=== PATIENT | female | born 1955 | race Caucasian/White ===

== ENCOUNTER 2017-08-25 07:47 | Emergency (ER) | payer BC ==
[2017-08-25 08:21] LABS: Urine Blood NEGATIVE (NEG); Urine Glucose NEGATIVE (NEG); Urine Protein TRACE (NEG)
[2017-08-25] MEDS ORDERED: NA CHLORIDE 0.9% 500 ML ONE (08:28)
[2017-08-25] MEDS ORDERED: DIPHENOX/ATROP SULF 1 TAB PO ONE (08:28)
[2017-08-25 08:36] LABS: Absolute Lymphocytes (CBC) 2.2 K/uL (0.7-4.9); Absolute Monocytes 0.4 K/uL (0.1-1.3); Absolute Neutrophil 7.5 K/uL (1.8-8.0); Basophils % 0.4 % (0-1.3); Eosinophils % 2.3 % (0-4.4); Hematocrit 43.1 % (36.0-45.0); Lymphocytes % 20.8 % (15.3-44.8); MCH 31.7 pg (27.0-35.0); MCV 93.4 fL (80-100); MPV 8.5 fL (7.6-11.3); Monocytes % 3.7 % (3.3-12.3); RBC Red Blood Cell Count 4.61 M/uL (3.86-4.86)
[2017-08-25 08:44] LABS: Bicarbonate 33 mEq/L (21-31); Glucose Level 180 mg/dL (65-120); Lipase 14 U/L (22-51); Potassium 3.1 mEq/L (3.6-5.0); Sodium Level 135 mEq/L (135-145)
[2017-08-25 08:49] LABS: Urine Bacteria <20 /HPF (<20); Urine RBC <5 /HPF (NONE SEEN)
[2017-08-25 08:50] LABS: Urine Culture Reflex Order NOT NEEDED
[2017-08-25 09:37] LABS: BUN Blood Urea Nitrogen < 5 mg/dL (6-20)
[2017-08-25 09:38] LABS: Bilirubin Direct 0.1 mg/dL (0-0.2); Bilirubin Total 0.4 mg/dL (0.3-1.2)
[2017-08-25 09:39] LABS: ALT/SGPT 11 IU/L (10-60); AST/SGOT 16 IU/L (10-42); Alkaline Phosphatase 143 IU/L (42-121)
[2017-08-25 09:40] LABS: Albumin 3.7 g/dL (3.2-5.5); Protein, Total 7.5 g/dL (6.0-8.3)
--- NOTE | 2017-08-25 09:56 | ER ---
Nurse's Notes [facility] Name: Mia Person Age: 61 yrs Sex: Female : 1955 Arrival Date: 08/25/2017 Time: 07:51 Bed 13 Private MD: Marcos Platt H Diagnosis: Diarrhea, unspecified Presentation: 08/25 07:55 Presenting complaint: Patient states: Patient states her DM medication has recently ae1 changed and she thinks it may be making her sick. Patient reports diarrhea, dizziness and fever. Transition of care: patient was not received from another setting of care. Onset of symptoms was August 23, 2017 at 08:00. 07:55 Method Of Arrival: Ambulatory ae1 07:55 Acuity: NICOLLE 3 ae1 08:38 Risk Assessment: Do you want to hurt yourself or someone else? Patient reports no rv desire to harm self or others. Initial Sepsis Screen: Does the patient meet any 2 criteria? No. Patient's initial sepsis screen is negative. Does the patient have a suspected source of infection? No. Patient's initial sepsis screen is negative. Care prior to arrival: None. Historical: - Allergies: 08:00 Clindamycin; ae1 08:00 Morphine; ae1 - Home Meds: 08:00 gabapentin 800 mg oral tab 1 tab 3 times per day [Active]; Amaryl 4 mg Oral tab 1 tab 4 ae1 mg in the AM and 2 mg nightly [Active]; Valium 10 mg oral tab [Active]; trazodone 100 mg Oral tab 1 tab nightly [Active]; - PMHx: 08:00 Cancer, Breast; RLS; Diabetes - NIDDM; right masectomy; ae1 - Immunization history:: Flu vaccine is not up to date. It has been more than one year since last vaccine. - Social history:: Smoking status: Patient uses tobacco products, smokes one pack cigarettes per day. - Ebola Screening: : Patient negative for fever greater than or equal to 101.5 degrees Fahrenheit, and additional compatible Ebola Virus Disease symptoms Patient denies exposure to infectious person Patient denies travel to an Ebola-affected area in the 21 days before illness onset. Screenin:38 Abuse screen: Denies threats or abuse. Denies injuries from another. Nutritional rv screening: No deficits noted. Tuberculosis screening: No symptoms or risk factors identified. Fall Risk None identified. Assessment: 08:36 General: Appears uncomfortable, obese, Behavior is calm, cooperative, Reports fever for rv diarrhea. Pain: Denies pain. Neuro: Level of Consciousness is awake, alert, obeys commands. Cardiovascular: Heart tones S1 S2 present. GI: Bowel sounds hyperactive in right upper quadrant, left upper quadrant, right lower quadrant and left lower quadrant Abd is soft and non tender X 4 quads. : No signs and/or symptoms were reported regarding the genitourinary system. EENT: No signs and/or symptoms were reported regarding the EENT system. Derm: No signs and/or symptoms reported regarding the dermatologic system. Musculoskeletal: No signs and/or symptoms reported regarding the musculoskeletal system. Vital Signs: 07:57 BP 143 / 87; Pulse 96; Resp 18; Temp 98.1(O); Pulse Ox 98% on R/A; Weight 82.55 kg (R); ae1 08:40 BP 129 / 67; Pulse 81; Resp 18; Temp 98.1; Pulse Ox 94% ; rv 09:26 BP 126 / 72; Pulse 84; Resp 16; Pulse Ox 92% on R/A; rv ED Course: 07:51 Patient arrived in ED. mr 07:51 Marcos Platt DO is Private Physician. mr 07:54 Osmar Fink MD is Attending Physician. kdr 07:57 Triage completed. ae1 07:57 Arm band placed on right wrist. ae1 08:05 Rajat Mckay LVN is Primary Nurse. em 08:25 Urine Microscopic Only Sent. mh5 08:39 Patient has correct armband on for positive identification. Placed in gown. Bed in low rv position. Call light in reach. Side rails up X 1. Adult w/ patient. Pulse ox on. NIBP on. 08:39 Inserted saline lock: 20 gauge in right antecubital area, using aseptic technique. rv 09:55 Marcos Platt DO is Referral Physician. kdr 10:05 No provider procedures requiring assistance completed. IV discontinued, intact, ae1 bleeding controlled, No redness/swelling at site. Patient refused tape and coban wrap, patient applied pressure to insertion site. Administered Medications: 08:32 Drug: LoMOTIL 2 tabs Route: PO; rv 10:07 Follow up: Response: No adverse reaction rv 08:33 Drug: NS 0.9% 500 ml Route: IV; Rate: bolus; Site: right antecubital; rv 10:06 Follow up: IV Status: Completed infusion ae1 10:05 Not Given (Patient Refused): Potassium Chloride 40 mEq PO once ae1 Outcome: 09:56 Discharge ordered by . kdr 10:06 Discharged to home ambulatory, with family. ae1 10:06 Condition: stable 10:06 Discharge instructions given to patient, Instructed on discharge instructions, follow up and referral plans. medication usage, Demonstrated understanding of instructions, Prescriptions given X 4. 10:08 Patient left the ED. rv Signatures: Osmar Fink MD MD kdr Rivera, Maria mr Woody, Rajat, ROAD MANAGER ROAD MANAGER em Alban Gibson RN RN ae1 Aretha Tamayo [facility] Jefe Roper, IONA RN rv Corrections: (The following items were deleted from the chart) 07:58 07:57 BP 143 / 87; Pulse 96bpm; Resp 18bpm; Pulse Ox 98% RA; 82.55 kg Reported; ae1 ae1
--- NOTE | 2017-08-25 09:56 | EDPHYS ---
Physician Documentation [facility] Name: Mia Person Age: 61 yrs Sex: Female : 1955 Arrival Date: 08/25/2017 Time: 07:51 Bed 13 Private MD: Marcos Platt H ED Physician Osmar Fink HPI: 08/25 08:23 This 61 yrs old Female presents to ER via Ambulatory with complaints of kdr Abdominal Pain, Diarrhea. 08:23 The patient presents to the emergency department with diarrhea, that is intermittent, 2 kdr times today. Onset: The symptoms/episode began/occurred 2 day(s) ago. Possible causes: unknown. The symptoms are aggravated by nothing. The symptoms are alleviated by nothing. Associated signs and symptoms: Pertinent positives: nausea, Pertinent negatives: anorexia, belching, constipation, dysuria, fever, GI bleeding, hematuria, vaginal discharge, vomiting. Severity of symptoms: At their worst the symptoms were mild just prior to arrival, in the emergency department the symptoms have improved markedly. The patient has not experienced similar symptoms in the past. The patient has not recently seen a physician. Historical: - Allergies: 08:00 Clindamycin; ae1 08:00 Morphine; ae1 - Home Meds: 08:00 gabapentin 800 mg oral tab 1 tab 3 times per day [Active]; Amaryl 4 mg Oral tab 1 tab 4 ae1 mg in the AM and 2 mg nightly [Active]; Valium 10 mg oral tab [Active]; trazodone 100 mg Oral tab 1 tab nightly [Active]; - PMHx: 08:00 Cancer, Breast; RLS; Diabetes - NIDDM; right masectomy; ae1 - Immunization history:: Flu vaccine is not up to date. It has been more than one year since last vaccine. - Social history:: Smoking status: Patient uses tobacco products, smokes one pack cigarettes per day. - Ebola Screening: : Patient negative for fever greater than or equal to 101.5 degrees Fahrenheit, and additional compatible Ebola Virus Disease symptoms Patient denies exposure to infectious person Patient denies travel to an Ebola-affected area in the 21 days before illness onset. ROS: 08:23 Constitutional: Negative for fever, chills, and weight loss, Eyes: Negative for injury, kdr pain, redness, and discharge, ENT: Negative for injury, pain, and discharge, Neck: Negative for injury, pain, and swelling, Cardiovascular: Negative for chest pain, palpitations, and edema, Respiratory: Negative for shortness of breath, cough, wheezing, and pleuritic chest pain, Back: Negative for injury and pain, : Negative for injury, bleeding, discharge, and swelling, MS/Extremity: Negative for injury and deformity, Skin: Negative for injury, rash, and discoloration, Neuro: Negative for headache, weakness, numbness, tingling, and seizure activity. Psych: Negative for depression, anxiety, suicide ideation, homicidal ideation, and hallucinations, Allergy/Immunology: Negative for hives, rash, and allergies, Endocrine: Negative for neck swelling, polydipsia, polyuria, polyphagia, and marked weight changes, Hematologic/Lymphatic: Negative for swollen nodes, abnormal bleeding, and unusual bruising. 08:23 Abdomen/GI: Positive for nausea, diarrhea, Negative for constipation, abdominal distension, anorexia, dysphagia, hematemesis, black/tarry stool, rectal pain, rectal bleeding, bowel incontinence, flatulence. Exam: 08:23 Constitutional: This is a well developed, well nourished patient who is awake, alert, kdr and in no acute distress. Head/Face: Normocephalic, atraumatic. Eyes: Pupils equal round and reactive to light, extra-ocular motions intact. Lids and lashes normal. Conjunctiva and sclera are non-icteric and not injected. Cornea within normal limits. Periorbital areas with no swelling, redness, or edema. Neck: Trachea midline, no thyromegaly or masses palpated, and no cervical lymphadenopathy. Supple, full range of motion without nuchal rigidity, or vertebral point tenderness. No Meningismus. Chest/axilla: Normal chest wall appearance and motion. Nontender with no deformity. No lesions are appreciated. Cardiovascular: Regular rate and rhythm with a normal S1 and S2. No gallops, murmurs, or rubs. Normal PMI, no JVD. No pulse deficits. Respiratory: Lungs have equal breath sounds bilaterally, clear to auscultation and percussion. No rales, rhonchi or wheezes noted. No increased work of breathing, no retractions or nasal flaring. Abdomen/GI: Soft, non-tender, with normal bowel sounds. No distension or tympany. No guarding or rebound. No evidence of tenderness throughout. Back: No spinal tenderness. No costovertebral tenderness. Full range of motion. Skin: Warm, dry with normal turgor. Normal color with no rashes, no lesions, and no evidence of cellulitis. MS/ Extremity: Pulses equal, no cyanosis. Neurovascular intact. Full, normal range of motion. Neuro: Awake and alert, GCS 15, oriented to person, place, time, and situation. Cranial nerves II-XII grossly intact. Motor strength 5/5 in all extremities. Sensory grossly intact. Cerebellar exam normal. Normal gait. Psych: Awake, alert, with orientation to person, place and time. Behavior, mood, and affect are within normal limits. Vital Signs: 07:57 BP 143 / 87; Pulse 96; Resp 18; Temp 98.1(O); Pulse Ox 98% on R/A; Weight 82.55 kg (R); ae1 08:40 BP 129 / 67; Pulse 81; Resp 18; Temp 98.1; Pulse Ox 94% ; rv 09:26 BP 126 / 72; Pulse 84; Resp 16; Pulse Ox 92% on R/A; rv MDM: 08:23 Data reviewed: vital signs, nurses notes, lab test result(s). Counseling: I had a kdr detailed discussion with the patient and/or guardian regarding: the historical points, exam findings, and any diagnostic results supporting the discharge/admit diagnosis, lab results. 09:56 Patient medically screened. [facility] 08/25 08:18 Order name: Urine Dipstick--Ancillary (enter results); Complete Time: 09:27 08/25 08:20 Order name: Basic Metabolic Panel [facility] 08/25 08:20 Order name: CBC with Diff; Complete Time: : [facility] 08/25 08:20 Order name: Creatinine for Radiology; Complete Time: : [facility] 08/25 08:20 Order name: Hepatic Function [facility] 08/25 08:20 Order name: Lipase [facility] 08/25 08:20 Order name: Urine Microscopic Only; Complete Time: : [facility] 08/25 08:20 Order name: Basic Metabolic Panel; Complete Time: 09:54 [facility] 08/25 08:20 Order name: Liver (Hepatic) Function; Complete Time: 09:54 [facility] 08/25 08:20 Order name: Lipase; Complete Time: 09:54 [facility] 08/25 08:22 Order name: Glucose, Ancillary Testing; Complete Time: 09:27 [facility] 08/25 08:20 Order name: IV Saline Lock; Complete Time: 08:34 [facility] 08/25 08:20 Order name: Labs collected and sent; Complete Time: 08:34 [facility] 08/25 08:20 Order name: Urine Dipstick-Ancillary (obtain specimen); Complete Time: 08:22 [facility] Administered Medications: 08:32 Drug: LoMOTIL 2 tabs Route: PO; rv 10:07 Follow up: Response: No adverse reaction rv 08:33 Drug: NS 0.9% 500 ml Route: IV; Rate: bolus; Site: right antecubital; rv 10:06 Follow up: IV Status: Completed infusion ae1 10:05 Not Given (Patient Refused): Potassium Chloride 40 mEq PO once ae1 Disposition: 08/25/17 09:56 Discharged to Home. Impression: Diarrhea, unspecified. - Condition is Stable. - Discharge Instructions: Diarrhea, [id number]. - Prescriptions for Flagyl 500 mg Oral Tablet - take 1 tablet by ORAL route every 6 hours for 5 days; 20 tablet. Zofran 4 mg Oral Tablet - take 1 tablet by ORAL route every 12 hours As needed; 6 tablet. Cipro 500 mg Oral Tablet - take 1 tablet by ORAL route every 12 hours for 5 days; 10 tablet. Lomotil 2.5- 0.025 mg Oral Tablet - take 2 tablet by ORAL route once daily As needed; 20 tablet. - Medication Reconciliation Form, Thank You Letter, Antibiotic Education form. - Follow up: Marcos Platt DO; When: 2 - 3 days; Reason: If symptoms return, Further diagnostic work-up, Recheck today's complaints, Continuance of care, Re-evaluation by your physician. - Problem is new. - Symptoms have improved. Signatures: [facility] Osmar Fink MD MD kdr Alban Gibson RN RN ae1 Jefe Roper RN RN rv Corrections: (The following items were deleted from the chart) 10:08 09:56 08/25/2017 09:56 Discharged to Home. Impression: Diarrhea, unspecified. Condition rv is Stable. Forms are Medication Reconciliation Form, Thank You Letter, Antibiotic Education, Prescription Opioid Use. Follow up: Marcos Platt; When: 2 - 3 days; Reason: If symptoms return, Further diagnostic work-up, Recheck today's complaints, Continuance of care, Re-evaluation by your physician. Problem is new. Symptoms have improved. kdr
[2017-08-25 10:12] VITALS: TEMP 98.1
[2017-08-25 10:14] VITALS: BP 126/72; O2SAT 92
== END 2017-08-25 10:08 | disposition home or self-care (01) ==
LOC: ER 07:47
DX: R19.7 Diarrhea, unspecified (principal); E11.9 Type 2 diabetes mellitus without complications; F17.210 Nicotine dependence, cigarettes, uncomplicated; Z85.3 Personal history of malignant neoplasm of breast; Z88.3 Allergy status to other anti-infective agents; Z88.5 Allergy status to narcotic agent; Z90.11 Acquired absence of right breast and nipple
CPT/HCPCS: 36415; 80048; 80076; 81003; 81015; 82962; 83690; 85025; 96360; 96361; 99284

== ENCOUNTER 2018-02-06 00:24 | Emergency (ER) | payer BC ==
[2018-02-06] MEDS ORDERED: GABAPENTIN 300 MG CAP ONE ×2 (00:53→01:57)
[2018-02-06 01:14] LABS: Absolute Lymphocytes (CBC) 3.8 K/uL (0.7-4.9); Absolute Monocytes 0.7 K/uL (0.1-1.3); Absolute Neutrophil 6.8 K/uL (1.8-8.0); Basophils % 0.7 % (0-1.3); Eosinophils % 1.7 % (0-4.4); Hematocrit 40.7 % (36.0-45.0); Lymphocytes % 32.7 % (15.3-44.8); MCH 32.8 pg (27.0-35.0); MCV 95.5 fL (80-100); MPV 8.8 fL (7.6-11.3); Monocytes % 6.3 % (3.3-12.3); RBC Red Blood Cell Count 4.26 M/uL (3.86-4.86)
[2018-02-06 01:26] LABS: Magnesium 1.5 mg/dL (1.8-2.4); Potassium 2.7 mmol/L (3.5-5.1)
[2018-02-06] MEDS ORDERED: POTASSIUM 25 MEQ EFFERV TAB ONE (01:39)
[2018-02-06] MEDS ORDERED: MAGNESIUM OXIDE 400 MG TAB ONE (01:39)
--- NOTE | 2018-02-06 01:42 | EDPHYS ---
Physician Documentation [facility] Name: Mia Person Age: 62 yrs Sex: Female : 1955 Arrival Date: 02/06/2018 Time: 00:24 Bed 19 Private MD: Marcos Platt H ED Physician Po Dumas HPI: 02/06 00:42 This 62 yrs old Female presents to ER via Ambulatory with complaints of Leg snw Swelling. 00:42 restless legs, lower extremity edema. Onset: The symptoms/episode began/occurred snw gradually, 4 day(s) ago. Severity of symptoms: At their worst the symptoms were moderate. It is unknown whether or not the patient has had similar symptoms in the past. It is unknown whether or not the patient has recently seen a physician. pt states she is out of her Gabapentin. Historical: - Allergies: 00:39 Clindamycin; lp1 00:39 Morphine; lp1 - Home Meds: 00:39 Amaryl 4 mg Oral tab 1 tab 4 mg in the AM and 2 mg nightly [Active]; gabapentin 800 mg lp1 Oral tab 1 tab 3 times per day [Active]; Cymbalta oral oral [Active]; trazodone 100 mg Oral tab 1 tab nightly [Active]; Valium 10 mg Oral tab [Active]; - PMHx: 00:39 Cancer, Breast; Diabetes - NIDDM; RLS; Depression; lp1 - PSHx: 00:39 L Mastectomy; Cholecystectomy; lp1 - Immunization history:: Adult Immunizations up to date. - Social history:: Smoking status: Patient uses tobacco products, smokes one pack cigarettes per day. - Ebola Screening: : Patient negative for fever greater than or equal to 101.5 degrees Fahrenheit, and additional compatible Ebola Virus Disease symptoms Patient denies exposure to infectious person Patient denies travel to an Ebola-affected area in the 21 days before illness onset No symptoms or risks identified at this time. ROS: 00:42 Constitutional: Negative for fever, chills, and weight loss, Eyes: Negative for injury, snw pain, redness, and discharge, ENT: Negative for injury, pain, and discharge, Neck: Negative for injury, pain, and swelling, Cardiovascular: Negative for chest pain, palpitations, and edema, Respiratory: Negative for shortness of breath, cough, wheezing, and pleuritic chest pain, Abdomen/GI: Negative for abdominal pain, nausea, vomiting, diarrhea, and constipation, Back: Negative for injury and pain, : Negative for injury, bleeding, discharge, and swelling, Skin: Negative for injury, rash, and discoloration, Neuro: Negative for headache, weakness, numbness, tingling, and seizure. 00:42 MS/extremity: Positive for swelling, tenderness, restlessness to bilateral lower extremities. Exam: 00:42 Constitutional: This is a well developed, well nourished patient who is awake, alert, snw and in no acute distress. Head/Face: Normocephalic, atraumatic. Eyes: Pupils equal round and reactive to light, extra-ocular motions intact. Lids and lashes normal. Conjunctiva and sclera are non-icteric and not injected. Cornea within normal limits. Periorbital areas with no swelling, redness, or edema. ENT: Nares patent. No nasal discharge, no septal abnormalities noted. Tympanic membranes are normal and external auditory canals are clear. Oropharynx with no redness, swelling, or masses, exudates, or evidence of obstruction, uvula midline. Mucous membranes moist. Neck: Trachea midline, no thyromegaly or masses palpated, and no cervical lymphadenopathy. Supple, full range of motion without nuchal rigidity, or vertebral point tenderness. No Meningismus. Chest/axilla: Normal chest wall appearance and motion. Nontender with no deformity. No lesions are appreciated. Cardiovascular: Regular rate and rhythm with a normal S1 and S2. No gallops, murmurs, or rubs. Normal PMI, no JVD. No pulse deficits. Respiratory: Lungs have equal breath sounds bilaterally, clear to auscultation and percussion. No rales, rhonchi or wheezes noted. No increased work of breathing, no retractions or nasal flaring. Abdomen/GI: Soft, non-tender, with normal bowel sounds. No distension or tympany. No guarding or rebound. No evidence of tenderness throughout. Back: No spinal tenderness. No costovertebral tenderness. Full range of motion. Skin: Warm, dry with normal turgor. Normal color with no rashes, no lesions, and no evidence of cellulitis. Neuro: Awake and alert, GCS 15, oriented to person, place, time, and situation. Cranial nerves II-XII grossly intact. Motor strength 5/5 in all extremities. Sensory grossly intact. Cerebellar exam normal. Normal gait. Psych: Awake, alert, with orientation to person, place and time. Behavior, mood, and affect are within normal limits. 00:42 Musculoskeletal/extremity: Extremities: grossly normal except: noted in the bilateral lower extremities: tenderness, pt states legs below the knee are swollen, areas are freely mobile, no noted erythema, no tense areas, Circulation is intact in all extremities. Sensation intact. Vital Signs: 00:38 BP 119 / 81; Pulse 117 MON; Resp 17 S; Pulse Ox 100% on R/A; Pain 2/10; rv 00:40 BP 119 / 81; Pulse 122; Resp 18; Temp 98.4(O); Pulse Ox 99% on R/A; Weight 72.57 kg; lp1 Height 5 ft. 3 in. (160.02 cm); Pain 9/10; 00:40 Body Mass Index 28.34 (72.57 kg, 160.02 cm) lp1 MDM: 00:34 Patient medically screened. snw 01:45 Data reviewed: vital signs, nurses notes. Data interpreted: Pulse oximetry: on room air snw is 99 %. Interpretation: normal. Counseling: I had a detailed discussion with the patient and/or guardian regarding: the historical points, exam findings, and any diagnostic results supporting the discharge/admit diagnosis, lab results, radiology results, the need for outpatient follow up, to return to the emergency department if symptoms worsen or persist or if there are any questions or concerns that arise at home. Special discussion: I have referred the patient to see his PCP for further evaluation of high blood pressure. Based on the history and exam findings, there is no indication for further emergent testing or inpatient evaluation. I discussed with the patient/guardian the need to see the primary care provider for further evaluation of the symptoms. 02/06 00:41 Order name: DD; Complete Time: : snw 02/06 00:41 Order name: Chem 7; Complete Time: : snw 02/06 00:41 Order name: CBC with Diff; Complete Time: :22 snw 02/06 00:41 Order name: Magnesium; Complete Time: : snw 02/06 00:41 Order name: Chest Pa And Lat (2 Views) XRAY snw Administered Medications: 00:45 Drug: Gabapentin 300 mg Route: PO; rv 01:53 Follow up: Response: No adverse reaction rv 01:39 Drug: Potassium Effervescent Tablet 50 mEq Route: PO; rv 01:53 Follow up: Response: No adverse reaction rv 01:39 Drug: Magnesium 400 mg Route: PO; rv 01:52 Follow up: Response: No adverse reaction rv 01:52 Drug: Gabapentin 300 mg Route: PO; rv 01:52 Follow up: Response: Medication administered at discharge. rv Disposition: 06:45 Co-signature as Attending Physician, Po Dumas MD I agree with the assessment and moise plan of care. Disposition: 02/06/18 01:42 Discharged to Home. Impression: Hypokalemia, Hypomagnesemia. - Condition is Stable. - Discharge Instructions: Potassium Content of Foods, Hypomagnesemia, Restless Legs Syndrome, Hypokalemia. - Prescriptions for Potassium Chloride 20 meq Oral Packet - take 1 packet by ORAL route once daily 1 packet in 6 (six) ounces of water or juice; Take after meal; 2 packet. - Medication Reconciliation Form, Thank You Letter, Antibiotic Education, Prescription Opioid Use form. - Follow up: Marcos Platt DO; When: Tomorrow; Reason: Recheck today's complaints, Continuance of care, Re-evaluation by your physician. Follow up: Emergency Department; When: As needed; Reason: Worsening of condition. Signatures: Dispatcher [employer] Po Quintana MD MD cha Therrien, Shelly, QUILL STRIPPER-C QUILL STRIPPER-Csnw Rachel Guzman, RN RN lp1 Jefe Roper RN RN rv Corrections: (The following items were deleted from the chart) 01:55 01:42 02/06/2018 01:42 Discharged to Home. Impression: Hypokalemia; Hypomagnesemia. rv Condition is Stable. Forms are Medication Reconciliation Form, Thank You Letter, Antibiotic Education, Prescription Opioid Use. Follow up: Marcos Platt; When: Tomorrow; Reason: Recheck today's complaints, Continuance of care, Re-evaluation by your physician. Follow up: Emergency Department; When: As needed; Reason: Worsening of condition. snw
--- NOTE | 2018-02-06 01:42 | ER ---
Nurse's Notes [facility] Name: Mia Person Age: 62 yrs Sex: Female : 1955 Arrival Date: 02/06/2018 Time: 00:24 Bed 19 Private MD: Marcos Platt H Diagnosis: Hypokalemia;Hypomagnesemia Presentation: 02/06 00:33 Presenting complaint: Patient states: Bilateral lower leg swelling x 3 days; States lp1 this has never happened before; Denies any chest pain, shortness of breath. Transition of care: patient was not received from another setting of care. Onset of symptoms was February 03, 2018. Risk Assessment: Do you want to hurt yourself or someone else? Patient reports no desire to harm self or others. Initial Sepsis Screen: Does the patient meet any 2 criteria? No. Patient's initial sepsis screen is negative. Does the patient have a suspected source of infection? No. Patient's initial sepsis screen is negative. Care prior to arrival: None. 00:33 Method Of Arrival: Ambulatory lp1 00:33 Acuity: NICOLLE 3 lp1 00:37 Risk Assessment: Do you want to hurt yourself or someone else? Patient reports no rv desire to harm self or others. Initial Sepsis Screen: Does the patient meet any 2 criteria? No. Patient's initial sepsis screen is negative. Does the patient have a suspected source of infection? No. Patient's initial sepsis screen is negative. Care prior to arrival: None. Historical: - Allergies: 00:39 Clindamycin; lp1 00:39 Morphine; lp1 - Home Meds: 00:39 Amaryl 4 mg Oral tab 1 tab 4 mg in the AM and 2 mg nightly [Active]; gabapentin 800 mg lp1 Oral tab 1 tab 3 times per day [Active]; Cymbalta oral oral [Active]; trazodone 100 mg Oral tab 1 tab nightly [Active]; Valium 10 mg Oral tab [Active]; - PMHx: 00:39 Cancer, Breast; Diabetes - NIDDM; RLS; Depression; lp1 - PSHx: 00:39 L Mastectomy; Cholecystectomy; lp1 - Immunization history:: Adult Immunizations up to date. - Social history:: Smoking status: Patient uses tobacco products, smokes one pack cigarettes per day. - Ebola Screening: : Patient negative for fever greater than or equal to 101.5 degrees Fahrenheit, and additional compatible Ebola Virus Disease symptoms Patient denies exposure to infectious person Patient denies travel to an Ebola-affected area in the 21 days before illness onset No symptoms or risks identified at this time. Screenin:37 Abuse screen: Denies threats or abuse. Denies injuries from another. Nutritional rv screening: No deficits noted. Tuberculosis screening: No symptoms or risk factors identified. Fall Risk None identified. Assessment: 00:36 General: Appears in no apparent distress. comfortable, Behavior is cooperative, rv restless. Pain: Complains of pain in right leg and left leg. Neuro: Level of Consciousness is awake, alert, obeys commands, Oriented to person, place, time, situation. Cardiovascular: Capillary refill < 3 seconds. Respiratory: Airway is patent. GI: No signs and/or symptoms were reported involving the gastrointestinal system. : No signs and/or symptoms were reported regarding the genitourinary system. EENT: No signs and/or symptoms were reported regarding the EENT system. Derm: Skin is intact. Musculoskeletal: No signs and/or symptoms reported regarding the musculoskeletal system. Vital Signs: 00:38 BP 119 / 81; Pulse 117 MON; Resp 17 S; Pulse Ox 100% on R/A; Pain 2/10; rv 00:40 BP 119 / 81; Pulse 122; Resp 18; Temp 98.4(O); Pulse Ox 99% on R/A; Weight 72.57 kg; lp1 Height 5 ft. 3 in. (160.02 cm); Pain 9/10; 00:40 Body Mass Index 28.34 (72.57 kg, 160.02 cm) lp1 ED Course: 00:24 Patient arrived in ED. ds1 00:25 Marcos Platt DO is Private Physician. ds1 00:34 [facility]C [facility] snw 00:34 Po Dumas MD is Attending Physician. snw 00:37 Triage completed. lp1 00:37 Arm band placed on right wrist. rv 00:37 Patient has correct armband on for positive identification. Bed in low position. Call rv light in reach. Side rails up X 1. Pulse ox on. NIBP on. 00:55 Inserted saline lock: 22 gauge in right antecubital area, using aseptic technique. rv Blood collected. 00:55 Initial lab(s) drawn, by me, sent to lab. rv 00:59 X-ray completed. Portable x-ray completed in exam room. Patient tolerated procedure kw well. 01:00 Chest Pa And Lat (2 Views) XRAY In Process Unspecified. EDMS 01:26 Notified Nurse Practitioner and/or Physician Maintainer Plant of a critical lab result(s), fc potassium of 2.7. 01:41 Marcos lPatt DO is Referral Physician. snw 01:53 No provider procedures requiring assistance completed. IV discontinued, bleeding rv controlled, No redness/swelling at site. Pressure dressing applied. Administered Medications: 00:45 Drug: Gabapentin 300 mg Route: PO; rv 01:53 Follow up: Response: No adverse reaction rv 01:39 Drug: Potassium Effervescent Tablet 50 mEq Route: PO; rv 01:53 Follow up: Response: No adverse reaction rv 01:39 Drug: Magnesium 400 mg Route: PO; rv 01:52 Follow up: Response: No adverse reaction rv 01:52 Drug: Gabapentin 300 mg Route: PO; rv 01:52 Follow up: Response: Medication administered at discharge. rv Outcome: 01:42 Discharge ordered by MD. snw 01:54 Discharged to home ambulatory. rv 01:54 Condition: good 01:54 Discharge instructions given to patient, Instructed on discharge instructions, follow up and referral plans. medication usage, Demonstrated understanding of instructions, follow-up care, medications, Prescriptions given X 1. 01:55 Patient left the ED. rv Signatures: Dispatcher [employer] EDKS Vania Augustine, [employer] LAYOUT DESIGNER-Adrianw Alix Alford, RN RN fc Dafne Hager dsLorna Hernandez Laura RN RN lp1 Jefe Roper RN RN rv
[2018-02-06 02:02] VITALS: BP 119/81
[2018-02-06 02:03] VITALS: TEMP 98.4; O2SAT 99
--- NOTE | 2018-02-06 08:55 | RAD REPORT ---
EXAM DESCRIPTION: Sophia Alexis (2 Views)02/06/2018 1:02 am CLINICAL HISTORY: Breast cancer COMPARISON: 2016 FINDINGS: The lungs appear clear of acute infiltrate. The heart is normal size IMPRESSION: No acute abnormalities displayed
== END 2018-02-06 01:55 | disposition home or self-care (01) ==
LOC: ER 00:24
DX: E87.6 Hypokalemia (principal); E83.42 Hypomagnesemia; F17.210 Nicotine dependence, cigarettes, uncomplicated; E11.9 Type 2 diabetes mellitus without complications; F32.9 Major depressive disorder, single episode, unspecified; Z85.3 Personal history of malignant neoplasm of breast; Z88.3 Allergy status to other anti-infective agents; Z88.5 Allergy status to narcotic agent; Z90.12 Acquired absence of left breast and nipple
CPT/HCPCS: 36415; 71046; 80048; 83735; 85025; 85379; 99284

== ENCOUNTER 2019-07-17 12:18 | Emergency (ER) | payer BC, OTHER ==
--- NOTE | 2019-07-17 14:08 | ER ---
Nurse's Notes [facility] Name: Mia Person Age: 63 yrs Sex: Female : 1955 Arrival Date: 07/17/2019 Time: 12:21 Bed 7 Private MD: Diagnosis: Person with feared health complaint in whom no diagnosis is made Presentation: 07/16 12:30 Chief complaint: Patient states: I work at [employer] and they sent me home Sunday because I ph was sick, now they want me to be medically cleared before I can come back to work." States that symptoms on Sunday were constipation and stomach pain, denies fever, states, " After I was able to poop I felt completely better. Coronavirus screen: Patient denies a cough. Patient denies shortness of breath or difficulty breathing. Patient denies measured and/or subjective temperature greater than 100.4F prior to today's visit. Patient denies travel on a cruise ship or to a country the [facility] currently lists as an affected area. Patient denies contact with known and/or suspected case of COVID-19. Ebola Screen: No symptoms or risks identified at this time. Initial Sepsis Screen: Does the patient meet any 2 criteria? No. Patient's initial sepsis screen is negative. Does the patient have a suspected source of infection? No. Patient's initial sepsis screen is negative. Risk Assessment: Do you want to hurt yourself or someone else? Patient reports no desire to harm self or others. Onset of symptoms was July 17, 2019. 12:30 Method Of Arrival: Ambulatory ph 12:30 Acuity: NICOLLE 5 ph Historical: - Allergies: 12:33 Clindamycin; ph 12:33 Morphine; ph - PMHx: 12:33 Cancer, Breast; Depression; Diabetes - NIDDM; RLS; ph - PSHx: 12:33 L Mastectomy; Cholecystectomy; ph - Immunization history:: Adult Immunizations unknown. - Social history:: Smoking status: Patient reports the use of cigarette tobacco products, smokes two packs cigarettes per day. Screenin:49 Abuse screen: Denies threats or abuse. Denies injuries from another. Nutritional sv screening: No deficits noted. Tuberculosis screening: No symptoms or risk factors identified. Fall Risk None identified. Assessment: 12:50 General: Appears in no apparent distress. comfortable, well groomed, well developed, sv Behavior is cooperative, appropriate for age, anxious. Pain: Denies pain. Neuro: Level of Consciousness is awake, alert, obeys commands, Oriented to person, place, time, situation, Moves all extremities. Full function Gait is steady. Respiratory: Airway is patent Respiratory effort is even, unlabored, Respiratory pattern is regular, symmetrical. Derm: Skin is pink, warm \\T\\ dry. 14:18 Reassessment: Patient appears in no apparent distress at this time. No changes from sv previously documented assessment. Patient and/or family updated on plan of care and expected duration. Pain level reassessed. Patient is alert, oriented x 3, equal unlabored respirations, skin warm/dry/pink. Vital Signs: 12:30 Resp 18; Temp 97.8; Pulse Ox 98% on R/A; Weight 70.76 kg; Height 5 ft. 3 in. (160.02 ph cm); 12:30 BP 104 / 68; Pulse 125; Resp 18; Pulse Ox 98% on R/A; kj1 12:49 Pulse 115; sv 13:39 BP 94 / 55; Pulse 113; Resp 18; Pulse Ox 98% ; sv 14:05 BP 113 / 55; Pulse 103; Resp 18; Pulse Ox 96% ; sv 12:30 Body Mass Index 27.63 (70.76 kg, 160.02 cm) ph ED Course: 12:21 Patient arrived in ED. am2 12:29 Blaise Zamarripa PA is PHCP. [facility] 12:29 Daniel Hannah MD is Attending Physician. [facility] 12:33 Triage completed. ph 12:34 Arm band placed on Patient placed in an exam room, on a stretcher. ph 12:48 Megan Arenas, IONA is Primary Nurse. sv 12:49 Patient has correct armband on for positive identification. Bed in low position. Call sv light in reach. Pulse ox on. NIBP on. Door closed. Head of bed elevated. 14:18 No provider procedures requiring assistance completed. Patient did not have IV access sv during this emergency room visit. Administered Medications: No medications were administered Outcome: 14:07 Discharge ordered by . [facility] 14:18 Discharged to home ambulatory. sv 14:18 Condition: stable 14:18 Discharge instructions given to patient, Instructed on discharge instructions, follow up and referral plans. Demonstrated understanding of instructions, follow-up care. 14:19 Patient left the ED. sv Signatures: Megan Arenas RN RN Blaise Camacho PA PA jmm Hall, Patricia, RN RN Angelia Gr Kandis kj1
--- NOTE | 2019-07-17 14:08 | EDPHYS ---
Physician Documentation [facility] Name: Mia Person Age: 63 yrs Sex: Female : 1955 Arrival Date: 07/17/2019 Time: 12:21 Bed 7 Private MD: ED Physician Daniel Hannah HPI: 07/16 12:47 This 63 yrs old Female presents to ER via Ambulatory with complaints of jmm Medical Clearance. 12:47 Onset: The symptoms/episode began/occurred gradually. This is a 63 year old female with jmm a history of DM, breast cancer, that presents to the ED with no complaints. Patient states she had an episode of constipation this past Sunday. Symptoms were relieved with a bowel movement. Denies cough, shortness of breath, diarrhea, abdominal pain currently. . Historical: - Allergies: 12:33 Clindamycin; ph 12:33 Morphine; ph - PMHx: 12:33 Cancer, Breast; Depression; Diabetes - NIDDM; RLS; ph - PSHx: 12:33 L Mastectomy; Cholecystectomy; ph - Immunization history:: Adult Immunizations unknown. - Social history:: Smoking status: Patient reports the use of cigarette tobacco products, smokes two packs cigarettes per day. ROS: 12:47 Constitutional: Negative for fever, chills, and weight loss, Cardiovascular: Negative jmm for chest pain, palpitations, and edema, Respiratory: Negative for shortness of breath, cough, wheezing, and pleuritic chest pain, Abdomen/GI: Negative for abdominal pain, nausea, vomiting, diarrhea, and constipation, Neuro: Negative for headache, weakness, numbness, tingling, and seizure. 12:47 All other systems are negative. Exam: 12:47 Constitutional: This is a well developed, well nourished patient who is awake, alert, jmm and in no acute distress. Head/Face: atraumatic. Eyes: EOMI, no conjunctival erythema appreciated ENT: Moist Mucus Membranes Neck: Trachea midline, Supple Chest/axilla: Normal chest wall appearance and motion. Cardiovascular: Regular rate and rhythm. No edema appreciated Respiratory: Normal respirations, no respiratory distress appreciated 12:47 Back: Normal ROM Skin: General appearance color normal MS/ Extremity: Moves all extremities, no obvious deformities appreciated, no edema noted to the lower extremities Neuro: Awake and alert, normal gait Psych: Behavior is normal, Mood is normal, Patient is cooperative and pleasant 12:47 Abdomen/GI: Inspection: abdomen appears normal, Bowel sounds: normal, Palpation: abdomen is soft and non-tender, in all quadrants. Vital Signs: 12:30 Resp 18; Temp 97.8; Pulse Ox 98% on R/A; Weight 70.76 kg; Height 5 ft. 3 in. (160.02 ph cm); 12:30 BP 104 / 68; Pulse 125; Resp 18; Pulse Ox 98% on R/A; kj1 12:49 Pulse 115; sv 13:39 BP 94 / 55; Pulse 113; Resp 18; Pulse Ox 98% ; sv 14:05 BP 113 / 55; Pulse 103; Resp 18; Pulse Ox 96% ; sv 12:30 Body Mass Index 27.63 (70.76 kg, 160.02 cm) ph MDM: 12:36 Patient medically screened. [facility] 14:04 Data reviewed: vital signs, nurses notes. Counseling: I had a detailed discussion with david the patient and/or guardian regarding: the historical points, exam findings, and any diagnostic results supporting the discharge/admit diagnosis, the need for outpatient follow up, to return to the emergency department if symptoms worsen or persist or if there are any questions or concerns that arise at home. ED course: Patient is alert and non toxic in appearance in the ED. Abd is benign. Patient is afebrile and non toxic in appearance. No signs of an acute intrabdominal process. . 07/16 12:43 [facility] Order: Discharge when HR < 100; Complete Time: 14:15 [facility] Administered Medications: No medications were administered Disposition: 14:04 Chart complete. Chart complete. [facility] Disposition: 07/17/19 14:07 Discharged to Home. Impression: Person with feared health complaint in whom no diagnosis is made. - Condition is Stable. - Discharge Instructions: Constipation, Adult. - Work release form, Medication Reconciliation Form, Thank You Letter, Antibiotic Education, Prescription Opioid Use form. - Follow up: Private Physician; When: 2 - 3 days; Reason: Recheck today's complaints, Continuance of care, Re-evaluation by your physician. Signatures: Megan Arenas RN RN Blaise Camacho PA PA [facility] Moyer, Debby, RN RN ph Corrections: (The following items were deleted from the chart) 14:19 14:07 07/17/2019 14:07 Discharged to Home. Impression: Person with feared health sv complaint in whom no diagnosis is made. Condition is Stable. Forms are Medication Reconciliation Form, Thank You Letter, Antibiotic Education, Prescription Opioid Use. Follow up: Private Physician; When: 2 - 3 days; Reason: Recheck today's complaints, Continuance of care, Re-evaluation by your physician. baljit
[2019-07-17 14:26] VITALS: TEMP 97.8
[2019-07-17 14:29] VITALS: BP 113/55; O2SAT 96
== END 2019-07-17 14:19 | disposition home or self-care (01) ==
LOC: ER 12:18
DX: Z71.1 Person with feared health complaint in whom no diagnosis is made (principal); F17.210 Nicotine dependence, cigarettes, uncomplicated; Z85.3 Personal history of malignant neoplasm of breast; Z88.3 Allergy status to other anti-infective agents; Z88.5 Allergy status to narcotic agent; Z90.12 Acquired absence of left breast and nipple
CPT/HCPCS: 99283

== ENCOUNTER 2019-10-07 22:41 | Inpatient (IN) | payer OTHER ==
[2019-10-08] MEDS ORDERED: NA CHLORIDE 0.9% 1,000 ML ONE ×3 (00:01→02:50)
[2019-10-08 00:12] LABS: Protime INR 1.11
[2019-10-08 01:12] LABS: Urine Bacteria >50 /HPF (<20); Urine Culture Reflex Order REFLEXED; Urine RBC <5 /HPF (NONE SEEN)
[2019-10-08 01:30] LABS: ALT/SGPT 13 U/L (12-78); AST/SGOT 12 U/L (15-37); Alkaline Phosphatase 151 U/L (45-117); BUN Blood Urea Nitrogen 48 mg/dL (7-18); Bicarbonate 24 mmol/L (21-32); Bilirubin Direct 0.4 mg/dL (0-0.2); Magnesium 1.5 mg/dL (1.8-2.4); NT PRO-BNP 1119 pg/mL (<125); Protein, Total 6.4 g/dL (6.4-8.2); Sodium Level 121 mmol/L (136-145); Troponin (Emerg Dept Use Only) < 0.02 ng/mL (0.0-0.045)
[2019-10-08 01:31] LABS: Glucose Level 913 mg/dL (74-106); Potassium 2.6 mmol/L (3.5-5.1)
[2019-10-08] MEDS ORDERED: CEFTRIAXONE/SWI 1gm 1 GM/10 ML SYR ONE (01:34)
[2019-10-08 01:37] LABS: Absolute Lymphocytes (CBC) 0.9 K/uL (0.7-4.9); Basophils % 0.1 % (0-1.3); Hematocrit 31.7 % (36.0-45.0); Lymphocytes % 8.4 % (15.3-44.8); RBC Red Blood Cell Count 3.36 M/uL (3.86-4.86)
--- NOTE | 2019-10-08 01:49 | EDPHYS ---
Physician Documentation [facility] Name: Mia Person Age: 64 yrs Sex: Female : 1955 Arrival Date: 10/07/2019 Time: 22:45 Bed 15 Private MD: ED Physician Scott Woodson HPI: 10/06 23:25 This 64 yrs old Female presents to ER via Wheelchair with complaints of jr8 Weakness. 23:25 Onset: The symptoms/episode began/occurred gradually, 4 day(s) ago. Associated signs jr8 and symptoms: Pertinent positives: diarrhea. Severity of symptoms: At their worst the symptoms were moderate. Patient's baseline: Neuro: alert and fully oriented, Motor: no deficits, Ambulation: walks with assist only, Speech: normal. The patient has not experienced similar symptoms in the past. The patient has not recently seen a physician. Patient stated that she has had about 4 days of excessive fatigue, general weakness, and diarrhea. Denies sick contacts. Historical: - Allergies: 23:14 Clindamycin; ls4 23:14 Morphine; ls4 - PMHx: 23:14 Cancer, Breast; Depression; Diabetes - NIDDM; RLS; ls4 - PSHx: 23:14 L Mastectomy; Cholecystectomy; ls4 - Immunization history:: Adult Immunizations up to date, Flu vaccine is up to date. - Social history:: Smoking status: Patient reports the use of cigarette tobacco products, smokes one pack cigarettes per day. Patient/guardian denies using alcohol, street drugs. ROS: 23:25 Eyes: Negative for injury, pain, redness, and discharge, ENT: Negative for injury, jr8 pain, and discharge, Neck: Negative for injury, pain, and swelling, Cardiovascular: Negative for chest pain, palpitations, and edema, Respiratory: Negative for shortness of breath, cough, wheezing, and pleuritic chest pain, Back: Negative for injury and pain, MS/Extremity: Negative for injury and deformity, Skin: Negative for injury, rash, and discoloration. 23:25 Neuro: Negative for headache, weakness, numbness, tingling, and seizure. 23:25 Constitutional: Positive for fatigue, malaise, general weakness . 23:25 Abdomen/GI: Positive for diarrhea, Negative for abdominal pain, nausea and vomiting, abdominal distension, hematemesis, black/tarry stool, rectal pain, rectal bleeding, bowel incontinence, flatulence. Exam: 23:25 Eyes: Pupils equal round and reactive to light, extra-ocular motions intact. Lids and jr8 lashes normal. Conjunctiva and sclera are non-icteric and not injected. Cornea within normal limits. Periorbital areas with no swelling, redness, or edema. ENT: Nares patent. No nasal discharge, no septal abnormalities noted. Tympanic membranes are normal and external auditory canals are clear. Oropharynx with no redness, swelling, or masses, exudates, or evidence of obstruction, uvula midline. Mucous membranes moist. Neck: Trachea midline, no thyromegaly or masses palpated, and no cervical lymphadenopathy. Supple, full range of motion without nuchal rigidity, or vertebral point tenderness. No Meningismus. Cardiovascular: Tachycardic with a normal S1 and S2. No gallops, murmurs, or rubs. Normal PMI, no JVD. No pulse deficits. Respiratory: Lungs have equal breath sounds bilaterally, clear to auscultation and percussion. No rales, rhonchi or wheezes noted. No increased work of breathing, no retractions or nasal flaring. Abdomen/GI: Soft, non-tender, with normal bowel sounds. No distension or tympany. No guarding or rebound. No evidence of tenderness throughout. Back: No spinal tenderness. No costovertebral tenderness. Full range of motion. Skin: Warm, dry with normal turgor. Normal color with no rashes, no lesions, and no evidence of cellulitis. MS/ Extremity: Pulses equal, no cyanosis. Neurovascular intact. Full, normal range of motion. Neuro: Awake and alert, GCS 15, oriented to person, place, time, and situation. Cranial nerves II-XII grossly intact. Motor strength 5/5 in all extremities. Sensory grossly intact. Finger to nose normal. Heel to welch normal Vital Signs: 23:04 BP 112 / 64; Pulse 110; Resp 18; Temp 97.7(O); Pulse Ox 97% on R/A; Weight 68.04 kg; ar5 Height 5 ft. 3 in. (160.02 cm); 10/07 01:20 BP 114 / 69; Pulse 110; Resp 16; Pulse Ox 97% ; ls4 10/06 23:04 Body Mass Index 26.57 (68.04 kg, 160.02 cm) ar5 MDM: 10/06 22:59 Patient medically screened. 10/07 01:44 Data reviewed: vital signs, nurses notes, lab test result(s), EKG, radiologic studies, jr plain films, and as a result, I will admit patient. Data interpreted: Pulse oximetry: on room air is 97 %. Interpretation: normal. Counseling: I had a detailed discussion with the patient and/or guardian regarding: the historical points, exam findings, and any diagnostic results supporting the discharge/admit diagnosis, lab results, radiology results, the need for further work-up and treatment in the hospital. Physician consultation: Milton Kumar was called at 01:45, was contacted at 01:45, regarding admission, to the ICU, patient's condition, and will see patient in ED. 10/06 23:20 Order name: Basic Metabolic Panel; Complete Time: 01:[address] [facility] 10/06 23:20 Order name: CBC with Diff; Complete Time: 02:06 10/06 23:20 Order name: LFT's; Complete Time: :33 10/06 23:20 Order name: Magnesium; Complete Time: :33 10/06 23:20 Order name: NT PRO-BNP; Complete Time: 01:33 10/06 23:20 Order name: PT-INR; Complete Time: 00:29 10/06 23:20 Order name: Troponin (emerg Dept Use Only); Complete Time: 01:33 10/06 23:20 Order name: COVID-19; Complete Time: 16:[address] [facility] 10/06 23:20 Order name: Urine Microscopic Only; Complete Time: 01:14 10/07 01:14 Order name: Urine Culture; Complete Time: 16:48 ED[facility] 10/07 01:40 Order name: Manual Differential; Complete Time: 02:06 ED[facility] 10/07 01:49 Order name: Osmolality, Serum 10/07 01:50 Order name: Osmolality, Serum; Complete Time: 16:48 EDMS 10/07 03:53 Order name: Basic Metabolic Panel; Complete Time: 16:48 ED[facility] 10/06 23:20 Order name: XRAY Chest (1 view); Complete Time: 16:48 jr8 10/07 04:09 Order name: Glucose, Ancillary Testing; Complete Time: 16:48 EDMS 10/07 05:18 Order name: Glucose, Ancillary Testing; Complete Time: 16:48 EDMS 10/07 06:04 Order name: Glucose Level; Complete Time: 16:48 EDMS 10/07 06:15 Order name: Glucose, Ancillary Testing; Complete Time: 16:48 EDMS 10/07 07:06 Order name: Glucose, Ancillary Testing; Complete Time: 16:48 EDMS 10/07 08:59 Order name: Glucose, Ancillary Testing; Complete Time: 16:48 EDMS 10/07 09:47 Order name: Basic Metabolic Panel; Complete Time: 16:48 EDMS 10/07 11:30 Order name: Glucose, Ancillary Testing; Complete Time: 16:48 EDMS 10/07 12:47 Order name: Hemoglobin A1c; Complete Time: 16:48 EDMS 10/07 13:34 Order name: Glucose, Ancillary Testing; Complete Time: 16:48 EDMS 10/07 16:13 Order name: Glucose, Ancillary Testing; Complete Time: 16:48 EDMS 10/07 18:51 Order name: Glucose, Ancillary Testing; Complete Time: 16:48 EDMS 10/07 19:09 Order name: Basic Metabolic Panel; Complete Time: 16:48 EDMS 10/06 23:20 Order name: EKG; Complete Time: 23:21 10/06 23:20 Order name: Cardiac monitoring; Complete Time: 00:30 10/06 23:20 Order name: EKG - Nurse/Tech; Complete Time: 00:30 10/06 23:20 Order name: IV Saline Lock; Complete Time: 00:30 10/06 23:20 Order name: Labs collected and sent; Complete Time: 00:30 10/06 23:20 Order name: O2 Per Protocol; Complete Time: 00:30 10/06 23:20 Order name: O2 Sat Monitoring; Complete Time: 00:30 10/06 23:20 Order name: Urine Dipstick-Ancillary (obtain specimen); Complete Time: 00:29 10/06 23:20 Order name: Straight Cath; Complete Time: 00:29 Administered Medications: 00:01 Drug: NS 0.9% 1000 ml Route: IV; Rate: 1000 ml; Site: right upper arm; ls4 01:17 Follow up: IV Status: Completed infusion; IV Intake: 1000ml ls4 01:57 Drug: Rocephin 1 grams Route: IV; Rate: calculated rate; Site: right upper arm; ls4 01:59 Follow up: IV Status: Completed infusion; IV Intake: 10ml ls4 02:30 Drug: Potassium Chloride 40 mEq Route: PO; rv 02:58 Follow up: Response: No adverse reaction rv 02:58 Drug: Magnesium Sulfate 2 grams Route: IVPB; Infused Over: 2 hrs; Site: right upper arm;rv 02:58 Follow up: IV Status: Infusion continued upon admission rv 02:58 Drug: NS 0.9% with KCl 20 mEq/L 1000 ml Route: IV; Rate: 500 ml/hr; Site: right upper rv arm; 02:58 Follow up: IV Status: Infusion continued upon admission rv 03:00 Drug: Insulin Drip - (Insulin Regular Human 100 units, NS 0.9% 100 ml) {Co-Signature: sathish rios (Martina Ann RN).} Route: IV; Rate: calculated rate; Site: right upper arm; 03:00 Follow up: IV Status: Infusion continued upon admission rv Disposition: 10/08/19 01:48 Hospitalization ordered by Milton Kumar for Inpatient Admission. Preliminary diagnosis are Acute kidney failure, Hypokalemia, Hypomagnesemia, Urinary tract infection, site not specified, Hyperglycemic Hyperosmolar Syndrome. - Bed requested for Telemetry/MedSurg (Inpatient). - Status is Inpatient Admission. ea - Condition is Fair. - Problem is new. - Symptoms are unchanged. Addendum: 10/13/2019 16:40 Co-signature as Attending Physician, Scott Woodson MD I agree with the assessment and t w4 plan of care. Signatures: Dispatcher [employer] EDMS Ava Wilkins RN Philip Huang PA PA jr8 Teri Gregory, RN RN tl1 Martina Ann RN RN ea Wadley, Terrence, MD MD tw4 Jefe Roper RN RN rv Stewart, Lisa RN RN ls4 Martina Ann RN, ea Corrections: (The following items were deleted from the chart) 10/07 01:51 01:48 Hospitalization Ordered by Milton Kumar for Inpatient Admission. Preliminary jr8 diagnosis is Acute kidney failure; Hypokalemia; Hypomagnesemia; Diabetes mellitus due to underlying condition with hyperglycemia. Bed requested for Telemetry/MedSurg (Inpatient). Status is Inpatient Admission. Condition is Fair. Problem is new. Symptoms are unchanged. jr8 01:53 01:51 10/08/2019 01:48 Hospitalization Ordered by Milton Kumar for Inpatient jr8 Admission. Preliminary diagnosis is Acute kidney failure; Hypokalemia; Hypomagnesemia; Diabetes mellitus due to underlying condition with hyperglycemia; Urinary tract infection, site not specified. Bed requested for Telemetry/MedSurg (Inpatient). Status is Inpatient Admission. Condition is Fair. Problem is new. Symptoms are unchanged. jr8 02:44 01:53 10/08/2019 01:48 Hospitalization Ordered by Milton Kumar for Inpatient tl1 Admission. Preliminary diagnosis is Acute kidney failure; Hypokalemia; Hypomagnesemia; Urinary tract infection, site not specified; Hyperglycemic Hyperosmolar Syndrome. Bed requested for Telemetry/MedSurg (Inpatient). Status is Inpatient Admission. Condition is Fair. Problem is new. Symptoms are unchanged. jr8 02:44 02:44 10/08/2019 01:48 Hospitalization Ordered by Milton Kumar for Inpatient tl1 Admission. Preliminary diagnosis is Acute kidney failure; Hypokalemia; Hypomagnesemia; Urinary tract infection, site not specified; Hyperglycemic Hyperosmolar Syndrome. Bed requested for Intensive Care Unit. Status is Inpatient Admission. Condition is Fair. Problem is new. Symptoms are unchanged. tl1 16:55 02:44 10/08/2019 01:48 Hospitalization Ordered by Milton Kumar for Inpatient kl Admission. Preliminary diagnosis is Acute kidney failure; Hypokalemia; Hypomagnesemia; Urinary tract infection, site not specified; Hyperglycemic Hyperosmolar Syndrome. Bed requested for [facility] ER HOLD. Status is Inpatient Admission. Condition is Fair. Problem is new. Symptoms are unchanged. tl1 20:37 16:55 10/08/2019 01:48 Hospitalization Ordered by Milton Kumar for Inpatient ea Admission. Preliminary diagnosis is Acute kidney failure; Hypokalemia; Hypomagnesemia; Urinary tract infection, site not specified; Hyperglycemic Hyperosmolar Syndrome. Bed requested for Telemetry/MedSurg (Inpatient). Status is Inpatient Admission. Condition is Fair. Problem is new. Symptoms are unchanged. kl
--- NOTE | 2019-10-08 01:49 | ER ---
Nurse's Notes [facility] Name: Mia Person Age: 64 yrs Sex: Female : 1955 Arrival Date: 10/07/2019 Time: 22:45 Bed 15 Private MD: Diagnosis: Acute kidney failure;Hypokalemia;Hypomagnesemia;Urinary tract infection, site not specified;Hyperglycemic Hyperosmolar Syndrome Presentation: 10/06 23:11 Chief complaint: Patient states: I HAVE BEEN VERY WEEK FOR THE LAST FEW DAYS. I DONT ls4 HAVE PAIN BUT AM VERY WEAK. Coronavirus screen: Proceed with normal triage. Patient denies a cough. Patient denies shortness of breath or difficulty breathing. Patient denies measured and/or subjective temperature greater than 100.4F prior to today's visit. Patient denies travel on a cruise ship or to a country the [facility] currently lists as an affected area. Patient denies contact with known and/or suspected case of COVID-19. Ebola Screen: No symptoms or risks identified at this time. Initial Sepsis Screen: Does the patient meet any 2 criteria? No. Patient's initial sepsis screen is negative. Does the patient have a suspected source of infection? No. Patient's initial sepsis screen is negative. Risk Assessment: Do you want to hurt yourself or someone else? Patient reports no desire to harm self or others. Onset of symptoms was October 03, 2019 at 08:00. Care prior to arrival: None. Activity prior to arrival: None. 23:11 Method Of Arrival: Wheelchair ls4 23:11 Acuity: NICOLLE 2 ls4 Triage Assessment: 23:14 General: Appears uncomfortable, unkempt, Behavior is flat, quiet. Pain: Denies pain. ls4 Neuro: Level of Consciousness is awake, alert, obeys commands, Oriented to person, place, time, situation, Guest Service Agent are equal bilaterally weak bilaterally Weakness Gait is unsteady, Speech is normal, Facial symmetry appears normal, Pupils are PERRLA, Intact Reports weakness. Respiratory: Airway is patent Respiratory effort is shallow, weak, Respiratory pattern is regular, symmetrical. GI: Abdomen is non-distended, Reports diarrhea, intolerance of food, tolerance of fluids. : No signs and/or symptoms were reported regarding the genitourinary system. Derm: Skin with poor turgor Skin is dry, Skin is jaundiced, Skin temperature is warm. Musculoskeletal: Circulation, motion, and sensation intact. Capillary refill < 3 seconds, Range of motion: intact in all extremities. Historical: - Allergies: 23:14 Clindamycin; ls4 23:14 Morphine; ls4 - PMHx: 23:14 Cancer, Breast; Depression; Diabetes - NIDDM; RLS; ls4 - PSHx: 23:14 L Mastectomy; Cholecystectomy; ls4 - Immunization history:: Adult Immunizations up to date, Flu vaccine is up to date. - Social history:: Smoking status: Patient reports the use of cigarette tobacco products, smokes one pack cigarettes per day. Patient/guardian denies using alcohol, street drugs. Screenin:19 Abuse screen: Denies threats or abuse. Denies injuries from another. Nutritional ls4 screening: No deficits noted. Tuberculosis screening: No symptoms or risk factors identified. Fall Risk None identified. Assessment: 23:46 Reassessment: Patient and/or family updated on plan of care and expected duration. Pain ls4 level reassessed. Patient is alert, oriented x 3, equal unlabored respirations, skin warm/dry/pink. straight cath for urine. pt has wartlike mass to vaginal area. pt states it has been there for a very long time. 10/07 20:36 Reassessment: Patient and/or family updated on plan of care and expected duration. Pain ea level reassessed. Patient is alert, oriented x 3, equal unlabored respirations, skin warm/dry/pink. Pt admitted to fourth floor, pt taken per stretcher per tech. Pt tolerating well. Vital Signs: 10/06 23:04 BP 112 / 64; Pulse 110; Resp 18; Temp 97.7(O); Pulse Ox 97% on R/A; Weight 68.04 kg; ar5 Height 5 ft. 3 in. (160.02 cm); 10/07 01:20 BP 114 / 69; Pulse 110; Resp 16; Pulse Ox 97% ; ls4 10/06 23:04 Body Mass Index 26.57 (68.04 kg, 160.02 cm) ar5 ED Course: 10/06 22:45 Patient arrived in ED. ds1 22:47 Mirta Candelaria, IONA is Primary Nurse. ls4 22:59 Philip Lundberg PA is PHCP. jr8 22:59 Scott Woodson MD is Attending Physician. jr8 23:13 Triage completed. ls4 23:19 Arm band placed on right wrist. ls4 23:19 Patient has correct armband on for positive identification. Bed in low position. Call ls4 light in reach. Side rails up X2. secured entrance monitor on. Pulse ox on. NIBP on. Warm blanket given. Verbal reassurance given. 23:21 No provider procedures requiring assistance completed. ls4 23:52 XRAY Chest (1 view) In Process Unspecified. EDMS 10/07 01:40 Notified Nurse Practitioner and/or Physician Dry Yard Worker of a critical lab result(s), [place] [id number], to Philip SILVA. 01:45 Milton Kumar is Hospitalizing Provider. jr8 02:59 IV is patent, with fluids infusing freely, with good blood return, Patient admitted, IV rv remains in place. Inserted midline powerglide g18 x 10cm, right upper arm. Administered Medications: 00:01 Drug: NS 0.9% 1000 ml Route: IV; Rate: 1000 ml; Site: right upper arm; ls4 01:17 Follow up: IV Status: Completed infusion; IV Intake: 1000ml ls4 01:57 Drug: Rocephin 1 grams Route: IV; Rate: calculated rate; Site: right upper arm; ls4 01:59 Follow up: IV Status: Completed infusion; IV Intake: 10ml ls4 02:30 Drug: Potassium Chloride 40 mEq Route: PO; rv 02:58 Follow up: Response: No adverse reaction rv 02:58 Drug: Magnesium Sulfate 2 grams Route: IVPB; Infused Over: 2 hrs; Site: right upper arm;rv 02:58 Follow up: IV Status: Infusion continued upon admission rv 02:58 Drug: NS 0.9% with KCl 20 mEq/L 1000 ml Route: IV; Rate: 500 ml/hr; Site: right upper rv arm; 02:58 Follow up: IV Status: Infusion continued upon admission rv 03:00 Drug: Insulin Drip - (Insulin Regular Human 100 units, NS 0.9% 100 ml) {Co-Signature: rv gabriel (Martina Ann RN).} Route: IV; Rate: calculated rate; Site: right upper arm; 03:00 Follow up: IV Status: Infusion continued upon admission rv Intake: 01:17 IV: 1000ml; Total: 1000ml. ls4 01:59 IV: 10ml; Total: 1010ml. ls4 Outcome: 01:48 Decision to Hospitalize by Provider. jr8 02:59 Admitted to ER Hold. Please see [facility] for further documentation. rv 02:59 Condition: stable 02:59 Instructed on the need for admit. 20:37 Patient left the ED. ea Signatures: Dispatcher [employer] EDMS Rey Ryan, RN Dafne Shipley dsPhilip Barron PA PA jr8 Martina Ann RN RN ea Vicente, Ronaldo, RN RN rv Stewart, Lisa RN IONA ls4 Chula Miller [facility] Martina Ann RN, ea Corrections: (The following items were deleted from the chart) 00:30 07/07 23:01 NS 0.9% 1000 ml IV at 1000 ml in right upper arm ls4 ls4
[2019-10-08 02:06] LABS: Blood Morphology Comment NOTED (NOT SEEN); Burr Cells 3+; Platelet Estimate DECR
[2019-10-08] MEDS ORDERED: POTASSIUM CL SA 10 MEQ TAB PO ONE (02:17)
[2019-10-08] MEDS ORDERED: INSULIN -REGULAR HUMAN 50 UNIT/0.5 ML ML ONE ×2 (02:18→14:07)
[2019-10-08] MEDS ORDERED: NS KCL 20MEQ 1,000 ML IV ONE ×3 (02:19→14:07)
[2019-10-08] MEDS ORDERED: Magnesium Sulfate 2gm IVPB 2 G/50 ML BAG IV ONE (02:19)
[2019-10-08] MEDS ORDERED: NA CHLORIDE 0.9% 100 ML IV ONE (02:19)
--- NOTE | 2019-10-08 02:27 | P.HP ---
Certification for Inpatient Patient admitted to: Inpatient With expected LOS: >2 Midnights Practitioner: I am a practitioner with admitting privileges, knowledge of patient current condition, hospital course, and medical plan of care. Services: Services provided to patient in accordance with Admission requirements found in Title 42 Section 412.3 of the Code of Federal Regulations Patient History Date of Service: 10/08/19 Reason for admission: Generalize weakness, polyuria. History of Present Illness: 64-year-old woman with a history of diabetes mellitus type 2 presented emergency department with complaint of generalized weakness and increased frequency of urination which has been present over the past 4 days. Patient reports noncompliance in taking her diabetes medications due to inability to afford them. She denied any fever or shortness of breath or chest pain or cough. Her blood glucose only in ED is severely elevated to the 900s, along with multiple electrolyte abnormalities and thrombocytopenia. Her UA also suggested the presence of UTI. Patient given IV fluids and started on insulin drip for HHS. She is admitted for further management. Allergies clindamycin Allergy (Mild, Verified 02/09/14 15:10) Nausea/Vomiting morphine Allergy (Mild, Verified 03/30/12 17:26) Itching/Hives/Rash pentazocine lactate [From Talwin] Allergy (Mild, Verified 03/30/12 17:26) Itching/Hives/Rash tramadol Allergy (Mild, Verified 02/09/14 15:10) Itching Home Medications: Gabapentin [Neurontin] 300 mg PO TID 02/09/14 - Past Medical/Surgical History Diabetic: No -: restless leg syndrome -: hx of breast cancer -: Diabetes mellitus type 2 -: gallbladder -: L masectomy 1996 - Family History Mother -: Diabetes - Social History Smoking Status: Current every day smoker Alcohol use: No CD- Drugs: No Caffeine use: Yes Review of Systems Other: Except as documented, all other systems reviewed and negative. Physical Examination - Physical Exam General: Alert, In no apparent distress, Oriented x3 HEENT: Mucous membr. moist/pink, Sclerae nonicteric Neck: Supple, JVD not distended Respiratory: Clear to auscultation bilaterally, Normal air movement Cardiovascular: No edema, Regular rate/rhythm, Normal S1 S2 Gastrointestinal: Normal bowel sounds, Soft and benign, Non-distended, No tenderness Musculoskeletal: No swelling, No erythema Integumentary: No rashes Neurological: Normal speech, Normal strength at 5/5 x4 extr, Cranial nerves 3-12 intact - Studies Laboratory Data (last 24 hrs) 10/08/19 01:00: WBC 10.4, Hgb 10.7 L, Hct 31.7 L, Plt Count 20 L* 10/07/19 23:51: PT 13.1 H, INR 1.11 10/07/19 23:51: Sodium 121 L, Potassium 2.6 L*, BUN 48 H, Creatinine 1.95 H, Glucose 913 H*, Magnesium 1.5 L, Total Bilirubin 1.0, AST 12 L, ALT 13, Alkaline Phosphatase 151 H Assessment and Plan - Problems (Diagnosis) (1) Uncontrolled type 2 DM with hyperosmolar nonketotic hyperglycemia Current Visit: Yes Status: Acute (2) Hyponatremia Current Visit: Yes Status: Acute (3) Acute renal failure Current Visit: Yes Status: Acute (4) UTI (urinary tract infection) Current Visit: Yes Status: Acute (5) Restless legs syndrome Current Visit: Yes Status: Acute (6) Thrombocytopenia Current Visit: Yes Status: Acute - Plan Hyponatremia mostly secondary to hyperglycemia. Admit to the ICU. Low-dose insulin drip. Aggressive IV hydration Blood glucose checked every 1 hour. IV Rocephin for UTI. Avoid anticoagulants given thrombocytopenia. Correct hyponatremia and hypochloremia with IV normal saline. Bandemia noted. Obtain blood cultures. Follow urine culture. Gabapentin for restless legs. - Advance Directives Does patient have a Living Will: No Does patient have a Durable POA for Healthcare: No
[2019-10-08] MEDS ORDERED: INSULIN -REGULAR HUMAN 100 UNIT in NA CHLORIDE 0.9% 100 ML IV SCH (03:01)
[2019-10-08] MEDS: NS KCL 20MEQ 20 MEQ/1,000 ML BAG IV SCH ×3 (03:01→21:26)
[2019-10-08 03:53] LABS: Potassium 1.8 mmol/L (3.5-5.1)
[2019-10-08 04:58] VITALS: BMI 26.5
[2019-10-08] MEDS ORDERED: INSULIN GLARGINE 100 UNITS/ML SQ SCH (08:00)
[2019-10-08] MEDS ORDERED: GLUCAGON 1 MG/VIAL IM PRN ×2 (08:02→13:41)
[2019-10-08] MEDS ORDERED: D50W 25 GM/50 ML SYRINGE/VIAL IV PRN ×2 (08:02→13:41)
--- NOTE | 2019-10-08 08:03 | RAD REPORT ---
EXAM DESCRIPTION: Sophia Single View10/07/2019 11:52 pm CLINICAL HISTORY: Shortness of breath COMPARISON: 2018 FINDINGS: Several linear opacities within the mid to lower right lung may represent areas of subseg mental atelectasis. Left lung appears clear of acute infiltrate. The heart is normal size
[2019-10-08] MEDS ORDERED: GABAPENTIN 100 MG CAP PO ONE (08:15)
[2019-10-08] MEDS ORDERED: INSULIN GLARGINE 100 UNITS/ML SQ ONE (08:32)
[2019-10-08] MEDS ORDERED: CEFTRIAXONE 1 GM/NS 50 ML 1 GM/50 ML BAG IV SCH (09:00)
[2019-10-08 09:46] LABS: Potassium 2.1 mmol/L (3.5-5.1)
[2019-10-08] MEDS ORDERED: KCL 20 MEQ/100 mL IVPB 20 MEQ/100 ML BAG IV SCH (11:00)
[2019-10-08] MEDS ORDERED: KCL 20 MEQ/100 mL IVPB 20 MEQ/100 ML BAG IV ONE (11:10)
--- NOTE | 2019-10-08 11:25 | P.PN ---
Date of Service: 10/08/19 Patient states she feels better this morning. Blood glucose level has decreased to the 400s. Hypokalemia noted.. Plan: Continue IV hydration. Correct electrolytes Transitioned to Lantus insulin 20 units DCM and stop insulin drip. Check hemoglobin A1c
[2019-10-08] MEDS: INSULIN -REGULAR HUMAN 50 UNIT/0.5 ML ML SQ SCH ×2 (14:05→22:02)
[2019-10-08 19:08] LABS: Potassium 2.2 mmol/L (3.5-5.1)
[2019-10-08] MEDS ORDERED: GABAPENTIN 100 MG CAP PO SCH (21:00)
[2019-10-08] MEDS: CEFTRIAXONE/SWI 1gm 1 GM/10 ML SYR IV SCH (21:27)
[2019-10-08 21:43] LABS: Potassium 2.4 mmol/L (3.5-5.1)
[2019-10-08] MEDS: INSULIN GLARGINE 100 UNITS/ML SQ SCH (22:02)
[2019-10-09] MEDS: KCL 20 MEQ/100 mL IVPB 20 MEQ/100 ML BAG IV SCH ×3 (01:19→06:00)
[2019-10-09] MEDS ORDERED: NA CHLORIDE 0.9% 1,000 ML ONE (01:25)
[2019-10-09] MEDS ORDERED: NA CHLORIDE 0.9% 0 ML ONE (02:03)
[2019-10-09] MEDS ORDERED: VANCOMYCIN 1 GM/VIAL ONE (02:03)
[2019-10-09] MEDS: NS KCL 20MEQ 20 MEQ/1,000 ML BAG IV SCH ×4 (03:01→23:01)
[2019-10-09 04:52] LABS: Absolute Lymphocytes (CBC) 1.9 K/uL (0.7-4.9); Basophils % 0.1 % (0-1.3); Hematocrit 31.3 % (36.0-45.0); Lymphocytes % 10.8 % (15.3-44.8); MPV 10.8 fL (7.6-11.3); RBC Red Blood Cell Count 3.42 M/uL (3.86-4.86)
[2019-10-09 05:08] LABS: Magnesium 1.5 mg/dL (1.8-2.4)
[2019-10-09 05:11] LABS: Phosphorus 0.5 mg/dL (2.5-4.9)
[2019-10-09 05:52] LABS: Potassium 3.1 mmol/L (3.5-5.1)
[2019-10-09] MEDS: INSULIN -REGULAR HUMAN 50 UNIT/0.5 ML ML SQ SCH ×4 (07:30→21:00)
[2019-10-09] MEDS ORDERED: POTASSIUM PHOS 30 MM in NA CHLORIDE 0.9% 500 ML IV ONE (08:00)
[2019-10-09] MEDS: INSULIN GLARGINE 100 UNITS/ML SQ SCH ×2 (09:20→22:47)
[2019-10-09 13:19] LABS: Protime INR 1.19
--- NOTE | 2019-10-09 13:21 | P.PN ---
Subjective Date of Service: 10/09/19 Chief Complaint: Generalize weakness, polyuria. Review of Systems General: Weakness Eyes: Unremarkable ENT: Unremarkable Respiratory: Unremarkable Cardiovascular: Unremarkable Gastrointestinal: Unremarkable Genitourinary: Dysuria Musculoskeletal: Unremarkable Integumentary: Unremarkable Neurological: Unremarkable Physical Examination - Vital Signs Temperature: 100.3 F Blood Pressure: 93/46 Pulse: 107 Respirations: 20 Pulse Ox (%): 94 - Physical Exam General: Alert, In no apparent distress, Oriented x3, Mild distress HEENT: Atraumatic, Normocephalic Neck: Supple Respiratory: Clear to auscultation bilaterally, Normal air movement Cardiovascular: Regular rate/rhythm, Normal S1 S2 Capillary refill: <2 Seconds Gastrointestinal: Normal bowel sounds, Soft and benign Musculoskeletal: No contractures, No erythema Integumentary: No significant lesion, No tenderness/swelling Neurological: Normal speech, Normal strength at 5/5 x4 extr, Normal tone, Sensation intact Assessment & Plan Discharge Plan: Home Plan to discharge in: 48 Hours - Code Status/Comfort Care Code Status Assessed: Yes (Patient is full code) Physician Review Additional Text: Assessment Uncontrolled diabetes mellitus type 2 with hyperosmolar nonketotic hyperglycemia COVID-19 Positive Hyponatremia Hyperkalemia Hypomagnesemia Hypophosphatemia Acute kidney injury Urinary tract infection Thrombocytopenia Plan Uncontrolled diabetes mellitus type 2 with hyperosmolar nonketotic hyperglycemia: This has improved patient blood sugars now around 200. Will continue to cover patient with a.c. HS Accu-Cheks and sliding scale insulin therapy in addition to a basal Lantus. DVT prophylaxis in place. COVID-19 Positive- patient is out symptoms, no shortness of breath, oxygen saturations within normal limits. Will continue on patient closely. Hyponatremia- this is greatly improved will continue to monitor patient's electrolyte status closely. Hypokalemia- this has improved. will continue with electrolyte protocol. Patient on telemetry. Hypomagnesemia-this has improved. will continue with electrolyte protocol. Patient on telemetry. Hypophosphatemia- the patient has been placed on electrolyte protocol. Will continue to monitor closely. Acute kidney injury- this is resolved with hydration. Will continue to monitor patient's kidney function closely. Urinary tract infection- preliminary urine culture positive for gram-negative rods, patient on Rocephin. Will await final urine cultures. Blood cultures have been obtained. Will await. Due to patient's vital signs and lab findings concern patient may be becoming septic. IV antibiotics in place, anticipate clinical improvement next 24-48 hr. Thrombocytopenia- this has improved will continue to monitor closely. No active bleeding at this time. Critical Care: No Time Spent Managing Pts Care (In Minutes): 55
--- NOTE | 2019-10-09 14:38 | RAD REPORT ---
EXAM DESCRIPTION: CT - Head Brain Wo Cont - 10/09/2019 2:11 pm CLINICAL HISTORY: suspect toxic encephalopathy Headache, drowsiness COMPARISON: No comparisons TECHNIQUE: All CT scans are performed using dose optimization technique as appropriate and may inclu de automated exposure control or mA/KV adjustment according to patient size. FINDINGS: No intracranial hemorrhage, hydrocephalus or extra-axial fluid collection.No areas of brai n edema or evidence of midline shift. The paranasal sinuses and mastoids are clear. The calvarium is intact. IMPRESSION: No acute intracranial abnormality.
[2019-10-09 15:41] LABS: Albumin 1.3 g/dL (3.4-5.0); Bilirubin Total 0.8 mg/dL (0.2-1.0); Protein, Total 4.8 g/dL (6.4-8.2)
[2019-10-09 20:35] LABS: Magnesium 1.2 mg/dL (1.8-2.4); Phosphorus 1.7 mg/dL (2.5-4.9)
[2019-10-09 20:41] LABS: Potassium 2.7 mmol/L (3.5-5.1)
[2019-10-09] MEDS: GLUCERNA SHAKE 237 ML CAN PO SCH (21:00)
[2019-10-09] MEDS ORDERED: KCL 20 MEQ/100 mL IVPB 20 MEQ/100 ML BAG IV SCH (22:00)
[2019-10-09] MEDS ORDERED: Magnesium Sulfate 2gm IVPB 2 G/50 ML BAG IV ONE (22:00)
[2019-10-09] MEDS: CEFTRIAXONE/SWI 1gm 1 GM/10 ML SYR IV SCH (22:48)
[2019-10-10] MEDS ORDERED: POTASSIUM PHOS IN 0.9 % NACL 15 MMOL/250 ML BAG IV ONE ×2 (01:00→01:28)
[2019-10-10] MEDS ORDERED: Magnesium Sulfate 2gm IVPB 2 G/50 ML BAG IV ONE (01:41)
[2019-10-10] MEDS: NS KCL 20MEQ 20 MEQ/1,000 ML BAG IV SCH ×3 (03:01→22:10)
[2019-10-10 05:33] LABS: Basophils % 0.2 % (0-1.3); Hematocrit 27.3 % (36.0-45.0); Lymphocytes % 9.1 % (15.3-44.8); MPV 10.4 fL (7.6-11.3); RBC Red Blood Cell Count 2.97 M/uL (3.86-4.86)
[2019-10-10 05:47] LABS: Magnesium 1.7 mg/dL (1.8-2.4); Phosphorus 1.5 mg/dL (2.5-4.9)
[2019-10-10] MEDS ORDERED: MAGNESIUM SULFATE 1 gm IVPB 1 GM/100 ML BAG IV ONE (06:27)
[2019-10-10] MEDS ORDERED: KCL 20 MEQ/100 mL IVPB 20 MEQ/100 ML BAG IV SCH (07:00)
[2019-10-10] MEDS: INSULIN -REGULAR HUMAN 50 UNIT/0.5 ML ML SQ SCH ×4 (07:30→21:00)
[2019-10-10] MEDS: GLUCERNA SHAKE 237 ML CAN PO SCH ×2 (09:00→22:09)
[2019-10-10 09:07] LABS: Albumin 1.4 g/dL (3.4-5.0); Bilirubin Total 0.5 mg/dL (0.2-1.0); Potassium 3.1 mmol/L (3.5-5.1); Protein, Total 5.1 g/dL (6.4-8.2)
[2019-10-10] MEDS: INSULIN GLARGINE 100 UNITS/ML SQ SCH ×2 (09:25→21:00)
[2019-10-10 09:31] LABS: Anisocytosis 1+; Blood Morphology Comment NOTED (NOT SEEN); Platelet Estimate DECR
[2019-10-10] MEDS ORDERED: TRAMADOL HCL 50 MG TAB PO PRN (12:26)
[2019-10-10] MEDS ORDERED: HYDROCODONE/APAP 5/325 MG TAB PO PRN (13:07)
[2019-10-10] MEDS: HYDROCODONE/APAP 5/325 MG TAB PO PRN (13:45)
--- NOTE | 2019-10-10 17:41 | P.PN ---
Subjective Date of Service: 10/10/19 Chief Complaint: Generalize weakness, polyuria. Subjective: Other (Patient doing better today.) Physical Examination - Vital Signs Temperature: 99.7 F Blood Pressure: 101/62 Pulse: 96 Respirations: 18 Pulse Ox (%): 98 - Physical Exam General: Alert, Cooperative HEENT: Atraumatic Neck: Supple Respiratory: Clear to auscultation bilaterally, Normal air movement Cardiovascular: Normal pulses, Regular rate/rhythm Gastrointestinal: Normal bowel sounds, No rebound, No guarding Neurological: Normal speech, Normal strength at 5/5 x4 extr, Normal tone, Normal affect - Studies Medications List Reviewed: Yes Assessment & Plan Discharge Plan: Home Plan to discharge in: 72 Hours Physician Review Additional Text: Assessment Toxic encephalopathy with possible sepsis likely related to UTI Uncontrolled diabetes mellitus type 2 with hyperosmolar nonketotic hyperglycemia Hyponatremia Hyperkalemia Hypomagnesemia Hypophosphatemia Acute kidney injury Urinary tract infection Thrombocytopenia Plan Toxic encephalopathy with possible sepsis likely related to UTI: Continue Rocephin. Await urine culture results. Anticipate improvement over the next several days. Encourage ambulation. Uncontrolled diabetes mellitus type 2 with hyperosmolar nonketotic hyperglycemia: Continue to adjust basal insulin. A1c above 13. Sliding scale in place. Hyponatremia- continue fluids. Will adjust accordingly. Hypokalemia- electrolyte protocol in place Hypomagnesemia-electrolyte protocol in place Hypophosphatemia- continue monitor closely. Acute kidney injury- this has improved. Continue hydration Thrombocytopenia likely reactive due to possible sepsis- this has improved will continue to monitor closely. No active bleeding at this time. Time Spent Managing Pts Care (In Minutes): 55
[2019-10-10] MEDS: CEFTRIAXONE/SWI 1gm 1 GM/10 ML SYR IV SCH (22:07)
[2019-10-10] MEDS: KCL 20 MEQ/100 mL IVPB 20 MEQ/100 ML BAG IV SCH (22:36)
[2019-10-11] MEDS: HYDROCODONE/APAP 5/325 MG TAB PO PRN (00:55)
[2019-10-11] MEDS: KCL 20 MEQ/100 mL IVPB 20 MEQ/100 ML BAG IV SCH (00:56)
[2019-10-11] MEDS: NS KCL 20MEQ 20 MEQ/1,000 ML BAG IV SCH ×2 (06:47→13:40)
[2019-10-11 07:16] LABS: Absolute Lymphocytes (CBC) 2.6 K/uL (0.7-4.9); Basophils % 0.3 % (0-1.3); Hematocrit 28.1 % (36.0-45.0); Lymphocytes % 11.8 % (15.3-44.8); RBC Red Blood Cell Count 3.03 M/uL (3.86-4.86)
[2019-10-11] MEDS: INSULIN -REGULAR HUMAN 50 UNIT/0.5 ML ML SQ SCH ×4 (07:30→21:00)
[2019-10-11 07:47] LABS: Magnesium 1.8 mg/dL (1.8-2.4); Phosphorus 2.2 mg/dL (2.5-4.9); Potassium 3.8 mmol/L (3.5-5.1)
[2019-10-11 07:53] LABS: Thyroid Stimulating Hormone 5.45 uIU/mL (0.360-3.740)
[2019-10-11] MEDS: INSULIN GLARGINE 100 UNITS/ML SQ SCH (08:08)
[2019-10-11] MEDS: GLUCERNA SHAKE 237 ML CAN PO SCH ×2 (08:10→21:00)
[2019-10-11 10:09] LABS: Blood Morphology Comment NOT SEEN (NOT SEEN); Platelet Estimate DECR
--- NOTE | 2019-10-11 17:33 | P.PN ---
Subjective Date of Service: 10/11/19 Chief Complaint: Generalize weakness, polyuria. Subjective: Improving, Doing well Physical Examination - Vital Signs Temperature: 98.9 F Blood Pressure: 104/51 Pulse: 89 Respirations: 18 Pulse Ox (%): 97 - Physical Exam General: Alert, In no apparent distress, Cooperative HEENT: Atraumatic Neck: Supple Respiratory: Clear to auscultation bilaterally, Normal air movement Cardiovascular: Normal pulses, Regular rate/rhythm Neurological: Normal speech, Normal strength at 5/5 x4 extr, Normal tone, Normal affect - Studies Microbiology Data (last 24 hrs): 10/08/19 00:18 Clean Catch Urine Ulysses Count - Final >100,000 CFU/ML. 10/08/19 00:18 Clean Catch Urine - Final Escherichia Coli 10/07/19 23:51 Nasopharnyx Coronavirus COVID-19 PCR - Final Medications List Reviewed: Yes Assessment & Plan Discharge Plan: Home Plan to discharge in: 48 Hours Physician Review Additional Text: Assessment Toxic encephalopathy with possible sepsis likely related to UTI, urine culture-E coli Uncontrolled diabetes mellitus type 2 with hyperosmolar nonketotic hyperglycemia Hyponatremia Hyperkalemia Hypomagnesemia Hypophosphatemia Acute kidney injury Urinary tract infection Thrombocytopenia Plan Toxic encephalopathy with possible sepsis likely related to UTI, urine culture-E coli: Cultures reviewed. Will discontinue Rocephin and foreign exchange dealer to Augmentin. Encourage oral intake. Decrease IV fluids. Encourage ambulation. Provide incentive spirometer. Dc Flores catheter. Anticipate improvement over the next 2 days. Anticipate discharge once doing better. Uncontrolled diabetes mellitus type 2 with hyperosmolar nonketotic hyp erglycemia: A1c elevated. Blood sugar still decreased. Encourage oral intake. Will discontinue basal insulin. Continue sliding scale. Hyponatremia: Will adjust IV fluids Hypokalemia: Electrolyte protocol in placee Hypomagnesemia: Protocol in place Hypophosphatemia: Protocol in place Acute kidney injury: This appears resolved. Likely from volume depletion. Thrombocytopenia likely reactive due to possible sepsis: Improved. Will start DVT prophylaxis. Time Spent Managing Pts Care (In Minutes): 55
[2019-10-11] MEDS: NACHLORIDE 0.45% 1,000 ML IV SCH (18:10)
[2019-10-11] MEDS: CALCIUM CARB 500MG/VIT D 200 IU TAB PO SCH (21:00)
[2019-10-11] MEDS ORDERED: POTASSIUM PHOS IN 0.9 % NACL 15 MMOL/250 ML BAG IV ONE (21:00)
[2019-10-11] MEDS: LACTOBACILLUS/ACIDOPHILUS TAB PO SCH (21:13)
[2019-10-11] MEDS: ENOXAPARIN 40 MG/0.4 ML SQ SCH (21:33)
[2019-10-11] MEDS: AMOX/K CLAV 500 MG TAB PO SCH (21:33)
[2019-10-12] MEDS: HYDROCODONE/APAP 5/325 MG TAB PO PRN (03:38)
[2019-10-12 06:57] LABS: Basophils % 0.3 % (0-1.3); Hematocrit 25.6 % (36.0-45.0); Lymphocytes % 10.4 % (15.3-44.8); MPV 9.9 fL (7.6-11.3); RBC Red Blood Cell Count 2.73 M/uL (3.86-4.86)
[2019-10-12 07:14] LABS: Magnesium 1.5 mg/dL (1.8-2.4); Potassium 4.1 mmol/L (3.5-5.1)
[2019-10-12] MEDS: INSULIN -REGULAR HUMAN 50 UNIT/0.5 ML ML SQ SCH ×4 (07:30→21:00)
[2019-10-12] MEDS: GLUCERNA SHAKE 237 ML CAN PO SCH ×2 (09:00→21:00)
[2019-10-12] MEDS ORDERED: Magnesium Sulfate 2gm IVPB 2 G/50 ML BAG IV ONE (09:00)
[2019-10-12] MEDS: LACTOBACILLUS/ACIDOPHILUS TAB PO SCH ×2 (09:46→21:00)
[2019-10-12] MEDS: AMOX/K CLAV 500 MG TAB PO SCH ×2 (09:46→21:00)
[2019-10-12] MEDS: CALCIUM CARB 500MG/VIT D 200 IU TAB PO SCH ×2 (09:46→21:00)
[2019-10-12] MEDS: NACHLORIDE 0.45% 1,000 ML IV SCH (14:00)
--- NOTE | 2019-10-12 15:05 | P.PN ---
Subjective Date of Service: 10/12/19 Chief Complaint: Generalized weakness, polyuria. Subjective: Improving, Doing well Physical Examination - Vital Signs Temperature: 98.5 F Blood Pressure: 161/76 Pulse: 85 Respirations: 20 Pulse Ox (%): 91 - Physical Exam General: Alert HEENT: Atraumatic Neck: Supple Respiratory: Clear to auscultation bilaterally, Normal air movement Cardiovascular: Normal pulses, Regular rate/rhythm Gastrointestinal: Normal bowel sounds, Soft and benign, Non-distended Neurological: Normal speech, Normal strength at 5/5 x4 extr, Normal tone - Studies Medications List Reviewed: Yes Assessment & Plan Discharge Plan: Home Plan to discharge in: 24 Hours Physician Review Additional Text: Assessment Toxic encephalopathy with possible sepsis likely related to UTI, urine culture-E coli Uncontrolled diabetes mellitus type 2 with hyperosmolar nonketotic hyperglycemia Hyponatremia Hyperkalemia Hypomagnesemia Hypophosphatemia Acute kidney injury Urinary tract infection Anemia with Thrombocytopenia Plan Toxic encephalopathy with possible sepsis likely related to UTI, urine culture-E coli: Cultures reviewed. Patient now on Augmentin. Encourage oral intake. Dc IV fluids. Encourage ambulation. Encourage incentive spirometer. Will physical therapy assess ambulation. Anticipate home in the next 1-2 days with home health and physical therapy verses skilled placement. Will reassess tomorrow. Uncontrolled diabetes mellitus type 2 with hyperosmolar nonketotic hyperglycemia: A1c elevated. Basal insulin discontinued. Continue sliding scale. Will consider oral medication only at discharge. Hyponatremia: Discontinue IV fluids. Will monitor closely. Hypokalemia: Electrolyte protocol in placee Hypomagnesemia: Protocol in place Hypophosphatemia: Protocol in place Acute kidney injury: This appears resolved. Likely from volume depletion. Anemia with Thrombocytopenia likely reactive due to possible sepsis: Monitor hemoglobin closely. Thrombocytopenia resolved due to sepsis. Will add multi vitamin. Time Spent Managing Pts Care (In Minutes): 55
[2019-10-12] MEDS: ENOXAPARIN 40 MG/0.4 ML SQ SCH (17:20)
[2019-10-12] MEDS: ONDANSETRON 4 MG/2 ML VIAL IV PRN (18:37)
[2019-10-12] MEDS ORDERED: ONDANSETRON 4 MG/2 ML VIAL IV ONE (21:32)
[2019-10-13 05:03] LABS: Absolute Lymphocytes (CBC) 2.2 K/uL (0.7-4.9); Basophils % 0.3 % (0-1.3); Hematocrit 27.7 % (36.0-45.0); Lymphocytes % 13.6 % (15.3-44.8); MPV 9.5 fL (7.6-11.3); RBC Red Blood Cell Count 2.95 M/uL (3.86-4.86)
[2019-10-13 05:15] LABS: Magnesium 1.8 mg/dL (1.8-2.4); Potassium 4.2 mmol/L (3.5-5.1)
[2019-10-13] MEDS: INSULIN -REGULAR HUMAN 50 UNIT/0.5 ML ML SQ SCH ×4 (07:30→21:00)
--- NOTE | 2019-10-13 08:42 | ECHO ---
HEIGHT: 5 ft 3 in WEIGHT: 150 lb 0 oz DATE OF STUDY: 10/10/[address]: Aditya Barker DO 2-DIMENSIONAL: YES M.MODE: YES DOPPLER: YES COLOR FLOW: YES TDS: NO PORTABLE: NO DEFINITY: NO BUBBLE STUDY: NO DIAGNOSIS: CONFUSION CARDIAC HISTORY: CATHERIZATION: SURGERY: PROSTHETIC VALVE: PACEMAKER: MEASUREMENTS (cm) DIASTOLIC (NORMALS) SYSTOLIC (NORMALS) IVSd 0.8 (0.6-1.2) LA Diam 3.4 (1.9-4.0) LVEF 52% LVIDd 4.3 (3.5-5.7) LVIDs 3.2 (2.0-3.5) %FS 26% LVPWd 0.9 (0.6-1.2) Ao Diam 2.6 (2.0-3.7) 2 DIMENSIONAL ASSESSMENT: RIGHT ATRIUM: NORMAL LEFT ATRIUM: NORMAL RIGHT VENTRICLE: NORMAL LEFT VENTRICLE: TRICUSPID VALVE: MITRAL VALVE: MITRAL ANNULAR CALCIFICATION PULMONIC VALVE: NOT WELL SEEN AORTIC VALVE: NORMAL PERICARDIAL EFFUSION: NONE AORTIC ROOT: LEFT VENTRICULAR WALL MOTION: BORDERLINE NORMAL WALL MOTION. DOPPLER/COLOR FLOW: TRACE OF TRICUSPID REGURGITATION. MILD MITRAL REGURGITATION COMMENTS: LOW NORMAL LEFT VENTRICULAR EJECTION FRACTION 50-55% WITH MILD GLOBAL HYPOKINESIS. MILD MITRAL REGURGITATION, MILD TRICUSPID REGURGITATION. MILD MITRAL ANNULAR CALCIFICATION. TECHNOLOGIST: SHAWNA ARECHIGA
[2019-10-13] MEDS: GLUCERNA SHAKE 237 ML CAN PO SCH ×2 (09:00→21:00)
[2019-10-13] MEDS: AMOX/K CLAV 500 MG TAB PO SCH ×2 (09:00→21:00)
[2019-10-13] MEDS: CALCIUM CARB 500MG/VIT D 200 IU TAB PO SCH ×2 (09:00→21:00)
[2019-10-13] MEDS: LACTOBACILLUS/ACIDOPHILUS TAB PO SCH ×2 (09:00→21:00)
[2019-10-13] MEDS: ONDANSETRON 4 MG/2 ML VIAL IV PRN ×2 (09:44→17:12)
[2019-10-13] MEDS ORDERED: NA CHLORIDE 0.9% 500 ML IV ONE (11:32)
[2019-10-13] MEDS: ENOXAPARIN 40 MG/0.4 ML SQ SCH (17:06)
[2019-10-13] MEDS: NA CHLORIDE 0.9% 1,000 ML IV SCH (17:06)
--- NOTE | 2019-10-13 18:01 | P.PN ---
Subjective Date of Service: 10/13/19 Chief Complaint: Generalized weakness, polyuria. Subjective: Other (Patient reports nausea this morning.) Physical Examination - Vital Signs Temperature: 99.2 F Blood Pressure: 141/67 Pulse: 108 Respirations: 20 Pulse Ox (%): 97 - Physical Exam General: Alert, Cooperative HEENT: Atraumatic Neck: Supple Respiratory: Clear to auscultation bilaterally, Normal air movement Cardiovascular: Normal pulses, Regular rate/rhythm Gastrointestinal: Normal bowel sounds, Soft and benign, Non-distended, Other (Some nausea noted) Neurological: Normal speech, Normal strength at 5/5 x4 extr, Normal tone, Normal affect - Studies Medications List Reviewed: Yes Assessment & Plan Discharge Plan: Home Plan to discharge in: 48 Hours Physician Review Additional Text: Assessment Toxic encephalopathy with possible sepsis likely related to UTI, urine culture-E coli Uncontrolled diabetes mellitus type 2 with hyperosmolar nonketotic hyperglycemia Hyponatremia Hyperkalemia Hypomagnesemia Hypophosphatemia Acute kidney injury Urinary tract infection Anemia with Thrombocytopenia Nausea and vomiting Plan Toxic encephalopathy with possible sepsis likely related to UTI, urine culture-E coli: The patient continues to improve. Continue with current antibiotic therapy. Patient had nausea. Will monitor this closely. Will provide medication. Will replace fluids. Encourage oral intake. Uncontrolled diabetes mellitus type 2 with hyperosmolar nonketotic hyperglycemia: Continue with sliding scale. Will monitor closely. Hyponatremia: Restart IV fluids. Hypokalemia: Electrolyte protocol in place Hypomagnesemia: Protocol in place Hypophosphatemia: Protocol in place Acute kidney injury: This appears resolved. Likely from volume depletion. Anemia with Thrombocytopenia likely reactive due to possible sepsis: Monitor hemoglobin closely. Thrombocytopenia resolved due to sepsis. Will add multi vitamin. Nausea and vomiting: Will provide IV fluids. Will monitor closely. Time Spent Managing Pts Care (In Minutes): 55
[2019-10-13] MEDS ORDERED: SODIUM CHLORIDE 0.9% 10ML INJ IV PRN (18:14)
[2019-10-13] MEDS: CEFTRIAXONE/SWI 1gm 1 GM/10 ML SYR IVP SCH (21:38)
[2019-10-14] MEDS: ONDANSETRON 4 MG/2 ML VIAL IV PRN (00:02)
[2019-10-14] MEDS ORDERED: ONDANSETRON 4 MG/2 ML VIAL IV PRN (00:46)
[2019-10-14] MEDS ORDERED: METOCLOPRAMIDE 10 MG/2mL INJ IV SCH (01:00)
[2019-10-14] MEDS: HYDROCODONE/APAP 5/325 MG TAB PO PRN (01:29)
[2019-10-14 03:49] LABS: HBsAG Nonreactive (Nonreactive)
[2019-10-14 04:01] LABS: Absolute Lymphocytes (CBC) 1.9 K/uL (0.7-4.9); Basophils % 0.4 % (0-1.3); Hematocrit 23.5 % (36.0-45.0); Lymphocytes % 14.3 % (15.3-44.8); MPV 9.1 fL (7.6-11.3)
[2019-10-14 04:17] LABS: Magnesium 1.5 mg/dL (1.8-2.4); Potassium 4.2 mmol/L (3.5-5.1)
[2019-10-14] MEDS ORDERED: Magnesium Sulfate 2gm IVPB 2 G/50 ML BAG IV ONE (07:20)
[2019-10-14] MEDS ORDERED: PANTOPRAZOLE 40MG TABLET PO SCH (07:30)
[2019-10-14] MEDS: INSULIN -REGULAR HUMAN 50 UNIT/0.5 ML ML SQ SCH ×4 (07:30→21:00)
[2019-10-14] MEDS: CALCIUM CARB 500MG/VIT D 200 IU TAB PO SCH ×3 (09:00→21:29)
[2019-10-14] MEDS: GLUCERNA SHAKE 237 ML CAN PO SCH ×2 (09:00→21:00)
[2019-10-14] MEDS: AMOX/K CLAV 500 MG TAB PO SCH ×2 (09:23→21:28)
[2019-10-14] MEDS: LACTOBACILLUS/ACIDOPHILUS TAB PO SCH ×2 (09:23→21:28)
[2019-10-14] MEDS: PANTOPRAZOLE 40 MG INJ IVP SCH (09:23)
[2019-10-14] MEDS: CEFTRIAXONE/SWI 1gm 1 GM/10 ML SYR IVP SCH (09:24)
[2019-10-14] MEDS: NA CHLORIDE 0.9% 1,000 ML IV SCH (09:25)
[2019-10-14 14:30] LABS: Hematocrit 28.8 % (36.0-45.0)
[2019-10-14] MEDS: ENOXAPARIN 40 MG/0.4 ML SQ SCH (17:26)
[2019-10-14 17:51] LABS: HIV AG/AB 4TH GEN Non-reactive (Non-reactive)
--- NOTE | 2019-10-14 19:02 | P.PN ---
Subjective Date of Service: 10/14/19 Chief Complaint: Generalized weakness, polyuria. Subjective: Improving Physical Examination - Vital Signs Temperature: 98.3 F Blood Pressure: 135/73 Pulse: 109 Respirations: 18 Pulse Ox (%): 99 - Physical Exam General: Alert HEENT: Atraumatic Neck: Supple Respiratory: Clear to auscultation bilaterally Cardiovascular: Normal pulses Neurological: Normal speech, Normal strength at 5/5 x4 extr, Normal tone - Studies Medications List Reviewed: Yes Assessment & Plan Discharge Plan: Home Plan to discharge in: 24 Hours Physician Review Additional Text: Assessment Toxic encephalopathy with possible sepsis likely related to UTI, urine culture-E coli Uncontrolled diabetes mellitus type 2 with hyperosmolar nonketotic hyperglycemia Hyponatremia Hyperkalemia Hypomagnesemia Hypophosphatemia Acute kidney injury Urinary tract infection Anemia with Thrombocytopenia Nausea and vomiting Plan Toxic encephalopathy with possible sepsis likely related to UTI, urine culture-E coli: The patient continues to improve. Continue with current antibiotic therapy. Patient had nausea. Will monitor this closely. Will provide medication. Will replace fluids. Encourage oral intake. Have PT evaluate for possible Home. Uncontrolled diabetes mellitus type 2 with hyperosmolar nonketotic hyperglycemia: Continue with sliding scale. Will monitor closely. Hyponatremia: Restart IV fluids. Hypokalemia: Electrolyte protocol in place Hypomagnesemia: Protocol in place Hypophosphatemia: Protocol in place Acute kidney injury: This appears resolved. Likely from volume depletion. Anemia with Thrombocytopenia likely reactive due to possible sepsis: Monitor hemoglobin closely. Thrombocytopenia resolved due to sepsis. Will add multi vitamin. Nausea and vomiting: Will provide IV fluids. Will monitor closely. Time Spent Managing Pts Care (In Minutes): 55
[2019-10-14 23:46] VITALS: O2SAT 100
[2019-10-15 04:34] VITALS: BP 139/59; TEMP 98.3
[2019-10-15 04:48] LABS: Absolute Lymphocytes (CBC) 1.5 K/uL (0.7-4.9); Basophils % 0.4 % (0-1.3); Hematocrit 24.2 % (36.0-45.0); Lymphocytes % 14.7 % (15.3-44.8); MPV 8.9 fL (7.6-11.3); RBC Red Blood Cell Count 2.59 M/uL (3.86-4.86)
[2019-10-15] MEDS: INSULIN -REGULAR HUMAN 50 UNIT/0.5 ML ML SQ SCH ×2 (07:30→12:49)
[2019-10-15] MEDS: NA CHLORIDE 0.9% 1,000 ML IV SCH (08:00)
[2019-10-15] MEDS: GLUCERNA SHAKE 237 ML CAN PO SCH (08:35)
[2019-10-15] MEDS: CALCIUM CARB 500MG/VIT D 200 IU TAB PO SCH (08:35)
[2019-10-15] MEDS: LACTOBACILLUS/ACIDOPHILUS TAB PO SCH (08:35)
[2019-10-15] MEDS: CEFTRIAXONE/SWI 1gm 1 GM/10 ML SYR IVP SCH (08:35)
[2019-10-15] MEDS: AMOX/K CLAV 500 MG TAB PO SCH (08:35)
[2019-10-15] MEDS: PANTOPRAZOLE 40 MG INJ IVP SCH (08:40)
[2019-10-15 09:31] LABS: Hematocrit 25.9 % (36.0-45.0)
--- NOTE | 2019-10-15 09:38 | P.DS ---
Admission Date: 10/08/19 Discharge Date: 10/15/19 Primary Care Provider: none Disposition: ROUTINE DISCHARGE Discharge Condition: GOOD Reason for Admission: Generalized weakness, polyuria. Consultations: none Procedures: CT Head: FINDINGS: No intracranial hemorrhage, hydrocephalus or extra-axial fluid collection.No areas of brain edema or evidence of midline shift. The paranasal sinuses and mastoids are clear. The calvarium is intact. IMPRESSION: No acute intracranial abnormality. ECHO: EF 52% LEFT VENTRICULAR WALL MOTION: BORDERLINE NORMAL WALL MOTION. DOPPLER/COLOR FLOW: TRACE OF TRICUSPID REGURGITATION. MILD MITRAL REGURGITATION COMMENTS: LOW NORMAL LEFT VENTRICULAR EJECTION FRACTION 50-55% WITH MILD GLOBAL HYPOKINESIS. MILD MITRAL REGURGITATION, MILD TRICUSPID REGURGITATION. MILD MITRAL ANNULAR CALCIFICATION. CXR: FINDINGS: Several linear opacities within the mid to lower right lung may represent areas of subsegmental atelectasis. Left lung appears clear of acute infiltrate. The heart is normal size Medical Problem List: Toxic encephalopathy with sepsis the to UTI, urine culture-E coli Uncontrolled diabetes mellitus type 2 with hyperosmolar nonketotic hyperglycemia Hyponatremia,Hyperkalemia, Hypomagnesemia, Hypophosphatemia with acute renal injury likely from dehydration Normocytic normochromic Anemia of chronic disease Thrombocytopenia secondary to sepsis, recovered Brief History of Present Illness: 64-year-old female with history of diabetes presented emergency room with increased fatigue, urination. Patient found to have elevated blood sugar. Patient admitted for further evaluation and treatment. Hospital Course: Patient presented with on controlled diabetes type 2 with hyperosmolar nonketotic hyperglycemia. The patient also had toxic encephalopathy with sepsis secondary to UTI. Patient was placed on a insulin drip. Sugars improved. Patient given IV fluids for sepsis. Urine culture was positive for E. coli. Patient treated with IV antibiotic therapy and de escalated to Augmentin. At discharge patient will continue with Augmentin 1 pill twice daily for 4 more days. Recommend to recheck urine culture after that time to monitor resolution. UTI prevention education provided. For her diabetes, this is better controlled. Patient was eventually placed on basal insulin but this was stopped. Patient will controlled with sliding scale. A1c was elevated greater than 13. At discharge blood sugars is well controlled. Will recommend metformin 500 mg 1 pill twice daily at this time. No need for insulin. Recommend to monitor blood sugar at least twice daily. Recommend to maintain blood sugar less 140 fasting and less than 200 after meals. Patient has no PCP. Patient plans to establish with Dr. Werner to further address and monitor. Patient with normal septic normochromic anemia. Likely of chronic disease. At discharge patient will continue with multi vitamin with iron daily. Recommend to recheck lab-CBC in 1-2 weeks to monitor progress. Patient would benefit with GI evaluation as an outpatient. Patient will likely require colonoscopy an EGD to further address. Patient likely with underlying GERD. At discharge patient will continue with Protonix 40 mg daily. As recommended above, recommend GI evaluation as an outpatient. Patient with low calcium. Patient high risk for osteoporosis. Will recommend Caltrate-Oscal 1 pill twice daily. Patient will follow up with PCP to further monitor and address. Vital Signs/Physical Exam: Temp Pulse Resp BP Pulse Ox 98.3 F 103 H 18 139/59 L 97 10/15/19 04:00 10/15/19 04:00 10/15/19 04:00 10/15/19 04:00 10/15/19 04:00 General: Alert, In no apparent distress, Oriented x3, Cooperative HEENT: Atraumatic Neck: Supple Respiratory: Clear to auscultation bilaterally, Normal air movement Cardiovascular: Normal pulses, Regular rate/rhythm Gastrointestinal: Normal bowel sounds, Soft and benign, Non-distended, No tenderness, No masses, No rebound, No guarding Musculoskeletal: No erythema, No tenderness, No warmth Integumentary: No tenderness/swelling, No erythema, No warmth, No cyanosis Neurological: Normal speech, Normal strength at 5/5 x4 extr, Normal tone Laboratory Data at Discharge: WBC 10.5 K/uL (4.3-10.9) D 10/15/19 04:13 Hgb 8.3 g/dL (12.0-15.0) L 10/15/19 04:13 Hct 24.2 % (36.0-45.0) L D 10/15/19 04:13 Plt Count 313 K/uL (152-406) 10/15/19 04:13 PT 14.0 SECONDS (9.5-12.5) H 10/09/19 12:45 INR 1.19 10/09/19 12:45 APTT 26.5 SECONDS (24.3-36.9) 10/09/19 12:45 Sodium 135 mmol/L (136-145) L 10/14/19 03:37 Potassium 4.2 mmol/L (3.5-5.1) 10/14/19 03:37 BUN 8 mg/dL (7-18) 10/14/19 03:37 Creatinine 0.71 mg/dL (0.55-1.3) 10/14/19 03:37 Glucose 148 mg/dL (74-106) H 10/14/19 03:37 Phosphorus 2.8 mg/dL (2.5-4.9) 10/12/19 06:28 Magnesium 2.0 mg/dL (1.8-2.4) D 10/14/19 16:35 Total Bilirubin 0.5 mg/dL (0.2-1.0) 10/10/19 08:26 AST 32 U/L (15-37) 10/10/19 08:26 ALT 19 U/L (12-78) 10/10/19 08:26 Alkaline Phosphatase 144 U/L (45-117) H 10/10/19 08:26 Triglycerides 196 mg/dL (<150) H 10/09/19 03:53 Cholesterol 122 mg/dL (<200) 10/09/19 03:53 HDL Cholesterol 10 mg/dL (40-60) L 10/09/19 03:53 Cholesterol/HDL Ratio 12.20 10/09/19 03:53 Home Medications: Amox/Clavulanate [Augmentin 500-125 mg Tab*] 500 mg PO BID #8 tab 10/15/19 Calcium Carbonate/Vitamin D3 [Oscal 500 + Vit D 200 Iu Tab*] 1 tab PO BID #60 tab 10/15/19 Lactobacillus Acidophilus [Acidophilus Lactobacilli] 1 each PO BID #60 capsule 10/15/19 Metformin HCl [Glucophage*] 500 mg PO BIDWM #60 tab 10/15/19 Multivit,Ther Iron,Ca,FA & Min [Centrum Tablet*] 1 tab PO DAILY #90 tab 10/15/19 Pantoprazole [Protonix Tab] 40 mg PO DAILY #30 tab 10/15/19 New Medications: Lactobacillus Acidophilus [Acidophilus Lactobacilli] 1 each PO BID #60 capsule Amox/Clavulanate [Augmentin 500-125 mg Tab*] 500 mg PO BID #8 tab Multivit,Ther Iron,Ca,FA & Min [Centrum Tablet*] 1 tab PO DAILY #90 tab Metformin HCl [Glucophage*] 500 mg PO BIDWM #60 tab Calcium Carbonate/Vitamin D3 [Oscal 500 + Vit D 200 Iu Tab*] 1 tab PO BID #60 tab Pantoprazole [Protonix Tab] 40 mg PO DAILY #30 tab Patient Discharge Instructions: 1. Patient plans to establish care with Dr. Werner. 2. Patient presented with on controlled diabetes type 2 with hyperosmolar nonketotic hyperglycemia. The patient also had toxic encephalopathy with sepsis secondary to UTI. Patient was placed on a insulin drip. Sugars improved. Patient given IV fluids for sepsis. Urine culture was positive for E. coli. Patient treated with IV antibiotic therapy and de escalated to Augmentin. At discharge patient will continue with Augmentin 1 pill twice daily for 4 more days. Recommend to recheck urine culture after that time to monitor resolution. UTI prevention education provided. 3. For her diabetes, this is better controlled. Patient was eventually placed on basal insulin but this was stopped. Patient will controlled with sliding scale. A1c was elevated greater than 13. At discharge blood sugars is well controlled. Will recommend metformin 500 mg 1 pill twice daily at this time. No need for insulin. Recommend to monitor blood sugar at least twice daily. Recommend to maintain blood sugar less 140 fasting and less than 200 after meals. Patient has no PCP. Patient plans to establish with Dr. Werner to further address and monitor. 4. Patient with normal septic normochromic anemia. Likely of chronic disease. At discharge patient will continue with multi vitamin with iron daily. Recommend to recheck lab-CBC in 1-2 weeks to monitor progress. Patient would benefit with GI evaluation as an outpatient. Patient will likely require colonoscopy an EGD to further address. 5. Patient likely with underlying GERD. At discharge patient will continue with Protonix 40 mg daily. As recommended above, recommend GI evaluation as an outpatient. 6. Patient with low calcium. Patient high risk for osteoporosis. Will recommend Caltrate-Oscal 1 pill twice daily. Patient will follow up with PCP to further monitor and address. Diet: ADA Activity: Fall precautions Time spent managing pt's care (in minutes): 55
[2019-10-15] MEDS ORDERED: METFORMIN HCL 500 MG TAB PO SCH (17:00)
[2019-10-16] MEDS ORDERED: MULTIVITAMIN TAB PO SCH (09:00)
== END 2019-10-15 14:00 | disposition home or self-care (01) | DRG 871 ==
LOC: ER 22:41 → ERHOLD 10-08 02:35 → 4TH 10-08 20:36
PROVIDERS: ADMIT Internal Medicine; ATTEND Family Medicine
DX: A41.89 Other specified sepsis (principal); E11.00 Type 2 diabetes mellitus with hyperosmolarity without nonketotic hyperglycemic-hyperosmolar coma (NKHHC); G92 Toxic encephalopathy; U07.1 COVID-19; N39.0 Urinary tract infection, site not specified; E87.1 Hypo-osmolality and hyponatremia; N17.9 Acute kidney failure, unspecified; Z91.120 Patient's intentional underdosing of medication regimen due to financial hardship; Z91.14 Patient's other noncompliance with medication regimen; L89.151 Pressure ulcer of sacral region, stage 1; Z88.1 Allergy status to other antibiotic agents; Z88.5 Allergy status to narcotic agent; Z79.899 Other long term (current) drug therapy; Z85.3 Personal history of malignant neoplasm of breast; Z90.12 Acquired absence of left breast and nipple; F17.200 Nicotine dependence, unspecified, uncomplicated; G25.81 Restless legs syndrome; D69.6 Thrombocytopenia, unspecified; D72.825 Bandemia; E87.8 Other disorders of electrolyte and fluid balance, not elsewhere classified; Z90.49 Acquired absence of other specified parts of digestive tract; E87.5 Hyperkalemia; E83.42 Hypomagnesemia; E83.39 Other disorders of phosphorus metabolism; B96.20 Unspecified Escherichia coli [E. coli] as the cause of diseases classified elsewhere; R11.2 Nausea with vomiting, unspecified; D63.8 Anemia in other chronic diseases classified elsewhere; K21.9 Gastro-esophageal reflux disease without esophagitis; Z79.84 Long term (current) use of oral hypoglycemic drugs
CPT/HCPCS: 36415; 70450; 71045; 80048; 80053; 80061; 80074; 80076; 81015; 82310; 82330; 82607; 82728; 82947; 83010; 83036; 83540; 83605; 83615; 83735; 83880; 83930; 84100; 84132; 84145; 84439; 84443; 84466; 84484; 85014; 85018; 85025; 85610; 85730; 87040; 87077; 87086; 87088; 87186; 87389; 93005; 93306; 96361; 96374; 96375; 99285; C9113; J0696; J1650; J1815; J2405; J2765; J3370; J3475; J3480; J7030; J7040; J7050; U0002

== ENCOUNTER 2019-11-01 01:37 | Observation (INO) | payer OTHER ==
[2019-11-01] MEDS ORDERED: D50W 25 GM/50 ML SYRINGE/VIAL IV ONE (02:03)
[2019-11-01 02:21] LABS: Basophils % 0.8 % (0-1.3); Hematocrit 26.7 % (36.0-45.0); Lymphocytes % 19.6 % (15.3-44.8); MPV 8.4 fL (7.6-11.3); RBC Red Blood Cell Count 2.89 M/uL (3.86-4.86)
[2019-11-01 02:23] LABS: Protime INR 1.1
[2019-11-01] MEDS ORDERED: D5 0.9 NS 1,000 ML IV ONE (02:37)
[2019-11-01 02:43] LABS: ALT/SGPT 8 U/L (12-78); AST/SGOT 11 U/L (15-37); Albumin 2.2 g/dL (3.4-5.0); Alkaline Phosphatase 97 U/L (45-117); BUN Blood Urea Nitrogen 6 mg/dL (7-18); Bicarbonate 30 mmol/L (21-32); Bilirubin Direct 0.1 mg/dL (0-0.2); Bilirubin Total 0.3 mg/dL (0.2-1.0); CKMB Creatine Kinase MB < 1.0 ng/mL (0.3-3.6); Creatine Phosphokinase 25 U/L (26-192); Glucose Level 65 mg/dL (74-106); Lipase 64 U/L (73-393); Potassium 3.1 mmol/L (3.5-5.1); Protein, Total 6.7 g/dL (6.4-8.2); Sodium Level 139 mmol/L (136-145); Troponin (Emerg Dept Use Only) < 0.02 ng/mL (0.0-0.045)
[2019-11-01] MEDS ORDERED: Magnesium Sulfate 2gm IVPB 2 G/50 ML BAG IV ONE ×2 (02:56→05:28)
[2019-11-01] MEDS ORDERED: POTASSIUM CL SA 10 MEQ TAB PO ONE (03:02)
[2019-11-01] MEDS ORDERED: POTASSIUM 25 MEQ EFFERV TAB PO ONE ×2 (05:28→15:00)
[2019-11-01] MEDS ORDERED: ONDANSETRON 4 MG/2 ML VIAL IV PRN (05:28)
[2019-11-01] MEDS ORDERED: ACETAMINOPHEN 500 MG TAB PO PRN (05:28)
--- NOTE | 2019-11-01 05:31 | ER ---
Nurse's Notes [facility] Name: Mia Person Age: 64 yrs Sex: Female : 1955 Arrival Date: 11/01/2019 Time: 01:39 Bed 7 Private MD: Diagnosis: Hypoglycemia;Hyokalemia;Hypocalcemia;Hypomagnesemia Presentation: 10/31 01:42 Chief complaint: EMS states: they were toned out for report of pt having fallen in the bathroom on their arrival BGL was 44, they started an IV and administered D10. Coronavirus screen: At this time, the client does not indicate any symptoms associated with coronavirus-19. Ebola Screen: No symptoms or risks identified at this time. Initial Sepsis Screen: Does the patient meet any 2 criteria? No. Patient's initial sepsis screen is negative. Does the patient have a suspected source of infection? No. Patient's initial sepsis screen is negative. Risk Assessment: Do you want to hurt yourself or someone else? Patient reports no desire to harm self or others. Onset of symptoms was November 01, 2019. Care prior to arrival: Medication(s) given: D10 IV initiated. 20 GA, in the left antecubital area. 01:42 Method Of Arrival: EMS: [facility] 01:42 Acuity: NICOLLE 2 01:46 Care prior to arrival: Glucose check: 44. bb Historical: - Allergies: 01:45 Clindamycin; bb 01:45 Morphine; bb - Home Meds: 01:45 Metformin Oral [Active]; unable to obtain all medications [Active]; bb - PMHx: 01:45 Cancer, Breast; Depression; Diabetes - NIDDM; RLS; bb - PSHx: 01:45 L Mastectomy; Cholecystectomy; bb - Immunization history:: Adult Immunizations up to date. - Social history:: Smoking status: Patient reports the use of cigarette tobacco products, smokes one-half pack cigarettes per day. Screenin:05 Abuse screen: Denies threats or abuse. Denies injuries from another. Nutritional rv screening: No deficits noted. Tuberculosis screening: No symptoms or risk factors identified. Fall Risk Fall in past 12 months (25 points). No secondary diagnosis (0 pts). IV access (20 points). Ambulatory Aid- None/Bed Rest/Nurse Assist (0 pts). Gait- Normal/Bed Rest/Wheelchair (0 pts) Mental Status- Oriented to own ability (0 pts). Total Almaraz Fall Scale indicates No Risk (0-24 pts). Assessment: 02:05 General: Appears comfortable, Behavior is calm, cooperative. Pain: Denies pain. Neuro: rv Level of Consciousness is awake, alert, obeys commands, Oriented to person, place, time, situation. Cardiovascular: Patient's skin is warm and dry. Rhythm is sinus tachycardia. Respiratory: Airway is patent Respiratory effort is even, unlabored, Breath sounds are clear bilaterally. Derm: Skin is intact. 04:00 Reassessment: Patient and/or family updated on plan of care and expected duration. Pain rv level reassessed. Patient is alert, oriented x 3, equal unlabored respirations, skin warm/dry/pink. PATIENT DOES NOT SHOW SYMPTOMS OF HYPOGLYCEMIA. DENIES ANY PAIN. 06:00 Reassessment: Patient and/or family updated on plan of care and expected duration. Pain rv level reassessed. Patient is alert, oriented x 3, equal unlabored respirations, skin warm/dry/pink. PATIENT IS COMPLAINING OF PAIN ON THE LOWER LEGS. Patient states symptoms have improved. 06:00 Neuro: Level of Consciousness is awake, alert, obeys commands, Oriented to person, rv place, time, situation. 07:43 Reassessment: Patient appears in no apparent distress at this time. Patient and/or ph family updated on plan of care and expected duration. Pain level reassessed. Patient is alert, oriented x 3, equal unlabored respirations, skin warm/dry/pink. Report called to Alexander MONSON, pt taken to 2nd floor. Vital Signs: 01:42 BP 102 / 90; Pulse 103; Resp 14 S; Temp 97.5(O); Pulse Ox 100% on R/A; Weight 79.83 kg bb (R); Height 5 ft. 3 in. (160.02 cm) (R); Pain 0/10; 03:01 BP 108 / 87; Pulse 101; Resp 14; Pulse Ox 100% on R/A; rv 04:00 BP 110 / 86; Pulse 98; Resp 18; Pulse Ox 100% on R/A; rv 05:00 BP 106 / 79; Pulse 103; Resp 15; Pulse Ox 100% on R/A; rv 06:00 BP 126 / 68; Pulse 112; Resp 19; Pulse Ox 99% on R/A; rr5 07:20 BP 106 / 66; Pulse 109; Resp 18; Temp 97.8; Pulse Ox 99% on R/A; ph 01:42 Body Mass Index 31.18 (79.83 kg, 160.02 cm) bb ED Course: 01:39 Patient arrived in ED. cl3 01:41 Topher Hamilton MD is Attending Physician. mh7 01:44 Triage completed. bb 01:46 Arm band placed on Patient placed in an exam room, on a stretcher, on pulse oximetry. bb 01:52 Jefe Roper, IONA is Primary Nurse. rv 02:04 Initial lab(s) drawn, by me, sent to lab. EKG done, by ED staff, reviewed by Topher Hamilton MD. Maintain EMS IV. Dressing intact. Good blood return noted. Site clean \T\ dry. Gauge \T\ site: g20 left ac. 02:06 Patient has correct armband on for positive identification. Bed in low position. Call rv light in reach. Side rails up X2. media monitor on. Pulse ox on. NIBP on. 02:10 Chest Single View XRAY In Process Unspecified. EDMS 02:27 CT Head Brain wo Cont In Process Unspecified. EDMS 02:48 Notified ED physician of a critical lab result(s). MG 1.0. rr5 03:01 Inserted saline lock: 20 gauge in right antecubital area, using aseptic technique. rv 05:30 Daniela Young MD is Hospitalizing Provider. 7 06:02 No provider procedures requiring assistance completed. Patient admitted, IV remains in rr5 place. intact, No redness/swelling at site. Administered Medications: 02:03 Drug: D50W 50 ml Route: IVP; Site: left antecubital; rv 02:35 Follow up: Response: Blood sugar is elevated rv 03:00 Drug: Magnesium Sulfate 2 grams Route: IVPB; Infused Over: 2 hrs; Site: right rv antecubital; 04:00 Follow up: IV Status: Completed infusion rv 03:00 Drug: Potassium Chloride 40 mEq Route: PO; rv 06:31 Follow up: Response: No adverse reaction rv 05:00 Drug: D5-NS 1000 ml Route: IV; Rate: bolus; Site: right antecubital; rv 06:30 Follow up: IV Status: Completed infusion; IV Intake: 1000ml rv 06:42 Drug: Rocephin - (cefTRIAXone) 1 grams Route: IVPB; Infused Over: 30 mins; Site: right rr5 antecubital; 06:49 Follow up: IV Status: Completed infusion rv Intake: 06:30 IV: 1000ml; Total: 1000ml. rv Outcome: 05:31 Decision to Hospitalize by Provider. [facility] 07:43 Admitted to Med/surg accompanied by tech, via wheelchair, room 206, with chart, Report ph called to Alexander MONSNO 07:43 Condition: stable 08:14 Patient left the ED. ph Signatures: Dispatcher [employer] EDMckayla Whitehead, RN RN Debby Sigala RN RN Jefe Lundberg RN RN rv Bladimir Luna RN RN rr5 Alexandria Wilkins3 Topher Hamilton MD MD [facility]
--- NOTE | 2019-11-01 05:32 | EDPHYS ---
Physician Documentation [facility] Name: Mia Person Age: 64 yrs Sex: Female : 1955 Arrival Date: 11/01/2019 Time: 01:39 Bed 7 Private MD: ED Physician Topher Hamilton HPI: 10/31 02:15 This 64 yrs old Female presents to ER via EMS with complaints of Low Blood mh7 Sugar. 02:15 The patient or guardian reports hypoglycemia, that was potentially precipitated by Not mh7 eating, with the patient's symptoms witnessed by no one, Treatment prior to arrival includes: EMS administered D50, checked blood sugar on arrival, which was 44, after treatment, the blood sugar was 81. Onset: The symptoms/episode began/occurred today. Associated signs and symptoms: Pertinent positives: Fall, Pertinent negatives: constipation, decreased urine output, diaphoresis, diarrhea, dry skin, hair loss, ketones in urine, nausea, polydipsia, polyphagia, polyuria, seizure activity, skin flushing, urinary incontinence, vomiting. Current symptoms: In the emergency department the patient's symptoms have resolved, the patient is alert and fully oriented, has normal speech, has normal responsiveness, has no confusion. Historical: - Allergies: 01:45 Clindamycin; bb 01:45 Morphine; bb - Home Meds: 01:45 Metformin Oral [Active]; unable to obtain all medications [Active]; bb - PMHx: 01:45 Cancer, Breast; Depression; Diabetes - NIDDM; RLS; bb - PSHx: 01:45 L Mastectomy; Cholecystectomy; bb - Immunization history:: Adult Immunizations up to date. - Social history:: Smoking status: Patient reports the use of cigarette tobacco products, smokes one-half pack cigarettes per day. ROS: 02:15 Constitutional: Negative for fever, chills, and weight loss, Eyes: Negative for injury, mh7 pain, redness, and discharge, ENT: Negative for injury, pain, and discharge, Neck: Negative for injury, pain, and swelling, Cardiovascular: Negative for chest pain, palpitations, and edema, Respiratory: Negative for shortness of breath, cough, wheezing, and pleuritic chest pain, Abdomen/GI: Negative for abdominal pain, nausea, vomiting, diarrhea, and constipation, Back: Negative for injury and pain, : Negative for injury, bleeding, discharge, and swelling, MS/Extremity: Negative for injury and deformity, Skin: Negative for injury, rash, and discoloration, Neuro: Negative for headache, weakness, numbness, tingling, and seizure, Psych: Negative for depression, anxiety, suicide ideation, homicidal ideation, and hallucinations, Allergy/Immunology: Negative for hives, rash, and allergies, Endocrine: Negative for neck swelling, polydipsia, polyuria, polyphagia, and marked weight changes, Hematologic/Lymphatic: Negative for swollen nodes, abnormal bleeding, and unusual bruising. Exam: 02:15 Constitutional: This is a well developed, well nourished patient who is awake, alert, mh7 and in no acute distress. Head/Face: Normocephalic, atraumatic. Eyes: Pupils equal round and reactive to light, extra-ocular motions intact. Lids and lashes normal. Conjunctiva and sclera are non-icteric and not injected. Cornea within normal limits. Periorbital areas with no swelling, redness, or edema. ENT: Nares patent. No nasal discharge, no septal abnormalities noted. Tympanic membranes are normal and external auditory canals are clear. Oropharynx with no redness, swelling, or masses, exudates, or evidence of obstruction, uvula midline. Mucous membranes moist. Neck: Trachea midline, no thyromegaly or masses palpated, and no cervical lymphadenopathy. Supple, full range of motion without nuchal rigidity, or vertebral point tenderness. No Meningismus. Chest/axilla: Normal chest wall appearance and motion. Nontender with no deformity. No lesions are appreciated. Cardiovascular: Regular rate and rhythm with a normal S1 and S2. No gallops, murmurs, or rubs. Normal PMI, no JVD. No pulse deficits. Respiratory: Lungs have equal breath sounds bilaterally, clear to auscultation and percussion. No rales, rhonchi or wheezes noted. No increased work of breathing, no retractions or nasal flaring. Abdomen/GI: Soft, non-tender, with normal bowel sounds. No distension or tympany. No guarding or rebound. No evidence of tenderness throughout. Back: No spinal tenderness. No costovertebral tenderness. Full range of motion. Skin: Warm, dry with normal turgor. Normal color with no rashes, no lesions, and no evidence of cellulitis. MS/ Extremity: Pulses equal, no cyanosis. Neurovascular intact. Full, normal range of motion. Neuro: Awake and alert, GCS 15, oriented to person, place, time, and situation. Cranial nerves II-XII grossly intact. Motor strength 5/5 in all extremities. Sensory grossly intact. Cerebellar exam normal. Normal gait. Psych: Awake, alert, with orientation to person, place and time. Behavior, mood, and affect are within normal limits. 04:48 ECG was reviewed by the Attending Physician. [facility] Vital Signs: 01:42 BP 102 / 90; Pulse 103; Resp 14 S; Temp 97.5(O); Pulse Ox 100% on R/A; Weight 79.83 kg bb (R); Height 5 ft. 3 in. (160.02 cm) (R); Pain 0/10; 03:01 BP 108 / 87; Pulse 101; Resp 14; Pulse Ox 100% on R/A; rv 04:00 BP 110 / 86; Pulse 98; Resp 18; Pulse Ox 100% on R/A; rv 05:00 BP 106 / 79; Pulse 103; Resp 15; Pulse Ox 100% on R/A; rv 06:00 BP 126 / 68; Pulse 112; Resp 19; Pulse Ox 99% on R/A; rr5 07:20 BP 106 / 66; Pulse 109; Resp 18; Temp 97.8; Pulse Ox 99% on R/A; ph 01:42 Body Mass Index 31.18 (79.83 kg, 160.02 cm) bb MDM: 01:50 Patient medically screened. [facility] 05:28 Differential diagnosis: diabetes insipidus, DKA, hypoglycemic episode, Medication 7 Reaction. Data reviewed: vital signs, nurses notes, EMS record, lab test result(s), cardiac enzymes, CBC, electrolytes, urinalysis, EKG, radiologic studies, CT scan, plain films. Data interpreted: Pulse oximetry: on room air is 100 %. Interpretation: normal. Counseling: I had a detailed discussion with the patient and/or guardian regarding: the historical points, exam findings, and any diagnostic results supporting the discharge/admit diagnosis, lab results, radiology results, the need for further work-up and treatment in the hospital. Response to treatment: the patient's symptoms have mildly improved after treatment. 10/31 01:51 Order name: Basic Metabolic Panel [facility] 10/31 01:51 Order name: CBC with Diff; Complete Time: 02:45 7 10/31 01:51 Order name: Ckmb; Complete Time: 02:45 mh7 10/31 01:51 Order name: CPK; Complete Time: 02:45 mh7 10/31 01:51 Order name: Hepatic Function; Complete Time: 02:45 7 10/31 01:51 Order name: Lipase; Complete Time: 02:45 mh7 10/31 01:51 Order name: Magnesium; Complete Time: 02:45 mh7 10/31 01:51 Order name: Protime (+inr); Complete Time: 02:45 mh7 10/31 01:51 Order name: Ptt, Activated; Complete Time: 02:45 mh7 10/31 01:51 Order name: Troponin (emerg Dept Use Only); Complete Time: 02:45 7 10/31 01:52 Order name: Basic Metabolic Panel; Complete Time: 02:45 EDMS 10/31 02:02 Order name: Glucose, Ancillary Testing; Complete Time: 02:45 EDMS 10/31 02:36 Order name: Glucose, Ancillary Testing; Complete Time: 02:45 EDMS 10/31 04:47 Order name: Ionized Calcium EDMS 10/31 01:51 Order name: Chest Single View XRAY 7 10/31 01:51 Order name: CT Head Brain wo Cont 7 10/31 05:18 Order name: Glucose, Ancillary Testing; Complete Time: 05:25 EDMS 10/31 05:32 Order name: Urine Culture 10/31 05:33 Order name: Basic Metabolic Panel EDMS 10/31 05:33 Order name: Magnesium EDMS 10/31 05:33 Order name: Phosphorus EDMS 10/31 05:34 Order name: Hemoglobin A1c EDMS 10/31 05:35 Order name: Urine Dipstick--Ancillary (enter results) tt3 10/31 05:49 Order name: Urine Dipstick-Ancillary; Complete Time: 06:33 EDMS 10/31 06:34 Order name: Glucose, Ancillary Testing EDMS 10/31 01:51 Order name: EKG; Complete Time: 01:52 7 10/31 01:51 Order name: Cardiac monitoring; Complete Time: 02:04 mh7 10/31 01:51 Order name: EKG - Nurse/Tech; Complete Time: 02:04 10/31 01:51 Order name: IV Saline Lock; Complete Time: 02:04 10/31 01:51 Order name: Labs collected and sent; Complete Time: 02:04 10/31 01:51 Order name: NPO; Complete Time: 02:04 10/31 01:51 Order name: O2 Per Protocol; Complete Time: 02:04 10/31 01:51 Order name: O2 Sat Monitoring; Complete Time: 02:04 10/31 01:51 Order name: Urine Dipstick-Ancillary (obtain specimen); Complete Time: 06:49 [facility] 10/31 05:32 Order name: CONS Pharmacy Consult EDMS 10/31 05:32 Order name: Regular EDMS EC:48 Rate is 101 beats/min. Rhythm is regular, Sinus tachycardia. QRS [place] is Normal. HI mh7 interval is normal. QRS interval is normal. QT interval is normal. No Q waves. T waves are Normal. No ST changes noted. Clinical impression: Sinus tachycardia. Administered Medications: 02:03 Drug: D50W 50 ml Route: IVP; Site: left antecubital; rv 02:35 Follow up: Response: Blood sugar is elevated rv 03:00 Drug: Magnesium Sulfate 2 grams Route: IVPB; Infused Over: 2 hrs; Site: right rv antecubital; 04:00 Follow up: IV Status: Completed infusion rv 03:00 Drug: Potassium Chloride 40 mEq Route: PO; rv 06:31 Follow up: Response: No adverse reaction rv 05:00 Drug: D5-NS 1000 ml Route: IV; Rate: bolus; Site: right antecubital; rv 06:30 Follow up: IV Status: Completed infusion; IV Intake: 1000ml rv 06:42 Drug: Rocephin - (cefTRIAXone) 1 grams Route: IVPB; Infused Over: 30 mins; Site: right rr5 antecubital; 06:49 Follow up: IV Status: Completed infusion rv Disposition: 07:06 Co-signature as Attending Physician, Topher Hamilton MD. mh7 Disposition: 11/01/19 05:31 Hospitalization ordered by Daniela Young for Observation. Preliminary diagnosis are Hypoglycemia, Hyokalemia, Hypocalcemia, Hypomagnesemia. - Bed requested for Telemetry/MedSurg (observation). - Status is Observation. ph - Condition is Stable. - Problem is new. - Symptoms have improved. Signatures: Dispatcher [employer] EDMS Sylvia Harrell, RN RN mw Mckayla Wilkinson, RN RN bb Debby Moyer, RN RN ph Jefe Roper, RN RN rv Bladimir Luna RN RN rr5 Topher Hamilton MD MD [facility] Corrections: (The following items were deleted from the chart) 05:59 05:31 Hospitalization Ordered by Daniela Young MD for Observation. Preliminary diagnosis is Hypoglycemia; Hyokalemia; Hypocalcemia; Hypomagnesemia. Bed requested for Telemetry/MedSurg (observation). Status is Observation. Condition is Stable. Problem is new. Symptoms have improved. mh7 08:14 05:59 11/01/2019 05:31 Hospitalization Ordered by Daniela Young MD for Observation. ph Preliminary diagnosis is Hypoglycemia; Hyokalemia; Hypocalcemia; Hypomagnesemia. Bed requested for Telemetry/MedSurg (observation). Status is Observation. Condition is Stable. Problem is new. Symptoms have improved.
--- NOTE | 2019-11-01 05:36 | P.HP ---
Certification for Inpatient Patient admitted to: Observation With expected LOS: <2 Midnights Patient will require the following post-hospital care: None Practitioner: I am a practitioner with admitting privileges, knowledge of patient current condition, hospital course, and medical plan of care. Services: Services provided to patient in accordance with Admission requirements found in Title 42 Section 412.3 of the Code of Federal Regulations Patient History Date of Service: 11/01/19 Reason for admission: Hypoglycemia History of Present Illness: Patient is a 64-year-old female who has history of diabetes on metformin who presents to the hospital with hypoglycemia. Patient was admitted as her blood sugars continued to decrease. Patient continued to have hypoglycemic episodes in the emergency room the require hospitalization. The patient has been on metformin. This caused her to have significant diarrhea. This has caused significant weakness. Most recent A1c was almost 13 according to the patient. Patient also had multiple electrolyte abnormalities. Patient will be admitted to the hospital for correction of electrolytes and stabilization of blood sugars. Would check a A1c level as well. If blood sugars continue to drop will check C-peptide, insulin, proinsulin levels. Patient will be admitted for further evaluation. Allergies clindamycin Allergy (Mild, Verified 10/09/19 02:42) Nausea/Vomiting morphine Allergy (Mild, Verified 10/09/19 02:42) Itching/Hives/Rash pentazocine lactate [From Talwin] Allergy (Mild, Verified 10/09/19 02:42) Itching/Hives/Rash Home Medications: Pantoprazole [Protonix Tab] 40 mg PO DAILY #30 tab 10/15/19 Ciprofloxacin HCl 500 mg PO BID 11/01/19 Metformin HCl [Glucophage*] 1,000 mg PO BIDWM 11/01/19 Spironolactone [Aldactone] 25 mg PO DAILY 11/01/19 - Past Medical/Surgical History Diabetic: No -: restless leg syndrome -: hx of breast cancer -: Diabetes mellitus type 2 -: gallbladder -: L masectomy 1996 - Family History Mother Medical History: Diabetes Father Medical History: Stroke - Social History Alcohol use: No CD- Drugs: No Caffeine use: Yes Review of Systems 10-point ROS is otherwise unremarkable Physical Examination - Vital Signs Temperature: 98 F Blood Pressure: 140/70 Pulse: 80 Respirations: 16 Pulse Ox (%): 95 - Physical Exam General: Alert, In no apparent distress, Oriented x3 HEENT: Atraumatic, PERRLA, Mucous membr. moist/pink, EOMI, Sclerae nonicteric Neck: Supple, 2+ carotid pulse no bruit, No LAD, Without JVD or thyroid abnormality Respiratory: Clear to auscultation bilaterally, Normal air movement Cardiovascular: Regular rate/rhythm, Normal S1 S2, No murmurs Gastrointestinal: Normal bowel sounds, Soft and benign, Non-distended, No tenderness Musculoskeletal: No clubbing, No swelling, No tenderness Integumentary: No rashes Neurological: Normal gait, Normal speech, Normal strength at 5/5 x4 extr, Normal tone, Sensation intact, Cranial nerves 3-12 intact, Normal affect Lymphatics: No axilla or inguinal lymphadenopathy - Studies Laboratory Data (last 24 hrs) 11/01/19 02:00: PT 13.0 H, INR 1.10, APTT 32.7 11/01/19 02:00: WBC 10.2, Hgb 8.9 L, Hct 26.7 L, Plt Count 406 11/01/19 02:00: Sodium 139, Potassium 3.1 L, BUN 6 L, Creatinine 0.80, Glucose 65 L, Magnesium 1.0 L* D, Total Bilirubin 0.3, AST 11 L, ALT 8 L, Alkaline Phosphatase 97, Lipase 64 L Assessment & Plan - Problems (Diagnosis) (1) Hypoglycemia Current Visit: Yes Status: Acute (2) Hypomagnesemia Current Visit: Yes Status: Acute (3) Hypocalcemia Current Visit: Yes Status: Acute (4) Hypokalemia Current Visit: Yes Status: Acute (5) Uncontrolled type 2 DM with hyperosmolar nonketotic hyperglycemia Current Visit: No Status: Acute - Plan Plan: 1. Stop metformin 2. Check A1c 3. Monitor electrolytes 4. Evaluate the etiology of anemia 5. If diarrhea resolves & electrolytes correct, as well as stabilization of BS then will DC home in AM Discharge Plan: Home Plan to discharge in: 24 Hours - Advance Directives Does patient have a Living Will: No Does patient have a Durable POA for Healthcare: No - Code Status/Comfort Care Code Status Assessed: Yes Code Status: Full Code Critical Care: No Time Spent Managing PTS Care (In Minutes): 45
[2019-11-01 05:49] LABS: Urine Blood 2+ (NEG); Urine Glucose TRACE (NEG); Urine Protein 1+ (NEG)
[2019-11-01] MEDS ORDERED: CEFTRIAXONE/SWI 1gm 1 GM/10 ML SYR ONE (06:49)
[2019-11-01 08:13] VITALS: BMI 30.5
[2019-11-01] MEDS: D5 0.45 NS 1,000 ML IV SCH ×2 (08:17→18:59)
[2019-11-01] MEDS: ENSURE HIGH PROTEIN 237 ML CAN PO SCH ×3 (08:19→16:12)
[2019-11-01 12:28] LABS: Phosphorus 2.8 mg/dL (2.5-4.9); Potassium 3.5 mmol/L (3.5-5.1)
[2019-11-01 12:30] LABS: Magnesium 1.4 mg/dL (1.8-2.4)
--- NOTE | 2019-11-01 12:36 | RAD REPORT ---
EXAM DESCRIPTION: RAD - Chest Single View - 11/01/2019 2:10 am CLINICAL HISTORY: fall Chest pain. COMPARISON: Chest Single View dated 10/07/2019; Chest Pa And Lat (2 Views) dated 02/06/2018; Chest Sing le View dated 02/28/2016; CHEST SINGLE VIEW dated 03/30/2012 FINDINGS: Portable technique limits examination quality. The lungs are grossly clear. The heart is normal in size. No displaced fractures.Left axillary dissec tion clips. IMPRESSION: No acute intrathoracic process suspected.
[2019-11-01] MEDS ORDERED: MAGNESIUM SULFATE 1 gm IVPB 1 GM/100 ML BAG IV ONE (15:00)
[2019-11-01] MEDS: Magnesium Sulfate 2gm IVPB 2 G/50 ML BAG IV ONE ×2 (15:53→16:00)
[2019-11-01] MEDS: MAGNESIUM OXIDE 400 MG TAB PO SCH ×2 (17:53→20:20)
--- NOTE | 2019-11-01 18:49 | RAD REPORT ---
EXAM DESCRIPTION: US - Extremity Venous Uni Ltd - 11/01/2019 6:44 pm CLINICAL HISTORY: rule out DVT Leg swelling and edema. COMPARISON: No comparisons FINDINGS: Left lower extremity venous system was interrogated with Doppler technique. Normal flow, c ompressibility and augmentation was noted. There is no DVT present. IMPRESSION: No evidence of left lower extremity deep venous thrombosis.
--- NOTE | 2019-11-02 04:30 | P.DS ---
Discharge Date: 11/02/19 Disposition: ROUTINE DISCHARGE Discharge Condition: GOOD Reason for Admission: Hypoglycemia - Problems (1) Hypoglycemia Status: Acute (2) Hypomagnesemia Status: Acute (3) Hypocalcemia Status: Acute (4) Hypokalemia Status: Acute (5) Uncontrolled type 2 DM with hyperosmolar nonketotic hyperglycemia Status: Acute Brief History of Present Illness: Patient is a 64-year-old female who has history of diabetes on metformin who presents to the hospital with hypoglycemia. Patient was admitted as her blood sugars continued to decrease. Patient continued to have hypoglycemic episodes in the emergency room the require hospitalization. The patient has been on metformin. This caused her to have significant diarrhea. This has caused significant weakness. Most recent A1c was almost 13 according to the patient. Patient also had multiple electrolyte abnormalities. Patient will be admitted to the hospital for correction of electrolytes and stabilization of blood sugars. Would check a A1c level as well. If blood sugars continue to drop will check C-peptide, insulin, proinsulin levels. Patient also had anemia which will be worked up. Will check B12, iron, folic acid levels. Patient will be admitted for further evaluation. Hospital Course: Patient has done well during hospital stay. Patient has improved valve functioning in no longer having diarrhea. Patient less sugars are stable. Patient's electrolytes are stabilized as well. At this time, patient is stable for discharge home. Vital Signs/Physical Exam: Temp Pulse Resp BP Pulse Ox 98 F 80 16 140/70 95 11/02/19 04:23 11/02/19 04:23 11/02/19 04:23 11/02/19 04:23 11/02/19 04:23 General: Alert, In no apparent distress, Oriented x3 Laboratory Data at Discharge: WBC 10.2 K/uL (4.3-10.9) 11/01/19 02:00 Hgb 8.9 g/dL (12.0-15.0) L 11/01/19 02:00 Hct 26.7 % (36.0-45.0) L 11/01/19 02:00 Plt Count 406 K/uL (152-406) 11/01/19 02:00 PT 13.0 SECONDS (9.5-12.5) H 11/01/19 02:00 INR 1.10 11/01/19 02:00 APTT 32.7 SECONDS (24.3-36.9) 11/01/19 02:00 Sodium 140 mmol/L (136-145) 11/01/19 11:16 Potassium 3.5 mmol/L (3.5-5.1) 11/01/19 11:16 BUN 5 mg/dL (7-18) L 11/01/19 11:16 Creatinine 0.73 mg/dL (0.55-1.3) 11/01/19 11:16 Glucose 96 mg/dL (74-106) 11/01/19 11:16 Phosphorus 2.8 mg/dL (2.5-4.9) 11/01/19 11:16 Magnesium Cancelled 11/01/19 21:00 Total Bilirubin 0.3 mg/dL (0.2-1.0) 11/01/19 02:00 AST 11 U/L (15-37) L 11/01/19 02:00 ALT 8 U/L (12-78) L 11/01/19 02:00 Alkaline Phosphatase 97 U/L (45-117) 11/01/19 02:00 Lipase 64 U/L (73-393) L 11/01/19 02:00 Home Medications: Pantoprazole [Protonix Tab*] 40 mg PO DAILY #30 tab 10/15/19 Spironolactone [Aldactone*] 25 mg PO DAILY 11/01/19 Magnesium Chloride [Slow-Mag] 64 mg PO DAILY #30 tab 11/02/19 New Medications: Magnesium Chloride [Slow-Mag] 64 mg PO DAILY #30 tab Patient Discharge Instructions: OK TO DC IV AND DC HOME. FOLLOW-UP WITH PRIMARY CARE PROVIDER IN 1-2 WEEKS. FOLLOW-UP WITH ENDOCRINOLOGY IN 1-2 WEEKS. RETURN TO THE ER IF SYMPTOMS WORSEN. CALL or TEXT DR. MACK AT [phone] IF ANY QUESTIONS REGARDING HOSPITAL STAY. PLEASE CALL THE FLOOR AT [phone] IF ANY MEDICATION OR NURSING QUESTIONS. Diet: ADA Time spent managing pt's care (in minutes): 25
[2019-11-02] MEDS: ENSURE HIGH PROTEIN 237 ML CAN PO SCH ×3 (08:22→16:30)
[2019-11-02] MEDS: MAGNESIUM OXIDE 400 MG TAB PO SCH ×2 (08:22→19:56)
[2019-11-02 11:09] LABS: Magnesium 1.6 mg/dL (1.8-2.4); Potassium 4.1 mmol/L (3.5-5.1)
[2019-11-02 11:11] LABS: Absolute Lymphocytes (CBC) 1.9 K/uL (0.7-4.9); Basophils % 1.5 % (0-1.3); Hematocrit 27.2 % (36.0-45.0); Lymphocytes % 22.5 % (15.3-44.8); MPV 7.9 fL (7.6-11.3); RBC Red Blood Cell Count 2.96 M/uL (3.86-4.86)
[2019-11-02 11:47] LABS: Ferritin 138.7 ng/mL (8-388)
[2019-11-02] MEDS ORDERED: MAGNESIUM SULFATE 1 gm IVPB 1 GM/100 ML BAG IV ONE (13:00)
[2019-11-02] MEDS ORDERED: HYDROCODONE/APAP 7.5/325 MG TAB PO SCH (14:00)
[2019-11-02 22:39] VITALS: BP 119/57; TEMP 98.1
[2019-11-02 22:41] VITALS: O2SAT 95
--- NOTE | 2019-11-03 11:41 | RAD REPORT ---
EXAM DESCRIPTION: CT HEAD WITHOUT IV CONTRAST CLINICAL HISTORY: Fall TECHNIQUE: Contiguous axial CT images obtained through the brain without IV contrast. Coronal and sa gittal reformatted images were provided. This exam was performed according to our departmental dose-optimization program, which includes autom ated exposure control, adjustment of the mA and/or kV according to patient size and/or use of iterati ve reconstruction technique. COMPARISON: 10/09/2019 FINDINGS: Brain: No significant white matter changes. No focal mass effect. Oneill-white matter differ entiation is within normal limits. No hemorrhage. Ventricles: No ventriculomegaly or midline shift. Extra-axial spaces: No extra-axial collection or hemorrhage. Paranasal sinuses and mastoid air cells: Well-aerated Vessels: There is atherosclerotic disease of the internal carotid arteries bilaterally. Bones: Unremarkable Soft tissues: Unremarkable IMPRESSION: No acute intracranial or extra-axial abnormality. Electronically signed by: Andrea Salguero MD 11/01/2019 2:46 AM CDT Due to temporary technical issues with the PACS/Fluency reporting system, reports are being signed by the in house radiologist without review as a courtesy to ensure prompt reporting. The interpreting r adiologist is fully responsible for the content of the report.
== END 2019-11-02 20:40 | disposition home or self-care (01) ==
LOC: ER 01:37 → ERHOLD 05:33 → 2ND 07:43
PROVIDERS: ADMIT Hospitalist; ATTEND Hospitalist
DX: E11.649 Type 2 diabetes mellitus with hypoglycemia without coma (principal); E11.65 Type 2 diabetes mellitus with hyperglycemia; E11.00 Type 2 diabetes mellitus with hyperosmolarity without nonketotic hyperglycemic-hyperosmolar coma (NKHHC); E87.6 Hypokalemia; E83.42 Hypomagnesemia; E83.51 Hypocalcemia; D64.9 Anemia, unspecified; R19.7 Diarrhea, unspecified; R53.1 Weakness; G25.81 Restless legs syndrome; F17.210 Nicotine dependence, cigarettes, uncomplicated; Z88.3 Allergy status to other anti-infective agents; Z88.6 Allergy status to analgesic agent; Z85.3 Personal history of malignant neoplasm of breast; Z90.12 Acquired absence of left breast and nipple; Z90.49 Acquired absence of other specified parts of digestive tract; Z82.3 Family history of stroke; Z83.3 Family history of diabetes mellitus
CPT/HCPCS: 96365; 96361; 93005; 87088; 85025 ×2; 87086; 80048 ×3; 36415 ×2; 83735 ×3; 82550; 84100; 85610; 85044; 82947 ×14; 80076; 85730; 81003; 83036; 84484; 82553; 82728; 82746; 82607; 83690; 83540; 82330; 70450; 71045; 93971; 96375; 99285; J3475 ×3; J0696; J7042; J7799; G0378 ×3

== ENCOUNTER 2021-02-02 15:14 | Emergency (ER) | payer OTHER ==
[2021-02-02 16:00] LABS: Protime INR 1.28
[2021-02-02 16:01] LABS: Absolute Lymphocytes (CBC) 1.2 K/uL (0.7-4.9); Basophils % 0.4 % (0-1.3); Hematocrit 27.9 % (36.0-45.0); Lymphocytes % 10.5 % (15.3-44.8); MPV 8.3 fL (7.6-11.3); RBC Red Blood Cell Count 2.86 M/uL (3.86-4.86)
--- NOTE | 2021-02-02 16:02 | RAD REPORT ---
EXAM DESCRIPTION: CT - Head Brain Wo Cont - 02/02/2021 3:47 pm CLINICAL HISTORY: MENTAL STATUS CHANGE COMPARISON: Head Brain Wo Cont dated 11/01/2019; Head Brain Wo Cont dated 10/09/2019 TECHNIQUE: All CT scans are performed using dose optimization technique as appropriate and may inclu de automated exposure control or mA/KV adjustment according to patient size. FINDINGS: No intracranial hemorrhage, hydrocephalus or extra-axial fluid collection.No areas of brai n edema or evidence of midline shift. The paranasal sinuses and mastoids are clear. The calvarium is intact. IMPRESSION: No acute intracranial abnormality.
--- NOTE | 2021-02-02 16:25 | RAD REPORT ---
EXAM DESCRIPTION: RAD - Chest Single View - 02/02/2021 4:16 pm CLINICAL HISTORY: CHEST PAIN COMPARISON: Chest Single View dated 11/01/2019; Chest Single View dated 10/07/2019; Chest Pa And Lat (2 Views) dated 02/06/2018; Chest Single View dated 02/28/2016 FINDINGS: Lines: None. Lungs: Developing consolidative airspace disease in the left mid lung and left lung base. Mild increa sed right basilar opacities noted as well . Pleural: No significant pleural effusions or pneumothorax. Cardiac: The heart size is within normal limits. Bones: No acute fractures. Other: Surgical clips in the left axilla. IMPRESSION: Developing consolidative airspace disease in the left lung and mild right basilar opacit ies most likely representing pneumonia. Recommend radiographic follow-up to ensure resolution.
[2021-02-02 16:49] LABS: ALT/SGPT 22 U/L (12-78); AST/SGOT 11 U/L (15-37); Albumin 2.6 g/dL (3.4-5.0); Alkaline Phosphatase 108 U/L (45-117); BUN Blood Urea Nitrogen 29 mg/dL (7-18); Bicarbonate 23 mmol/L (21-32); Bilirubin Direct 0.2 mg/dL (0-0.2); Bilirubin Total 0.5 mg/dL (0.2-1.0); Glucose Level 226 mg/dL (74-106); Lipase 128 U/L (73-393); NT PRO-BNP 974 pg/mL (<125); Potassium 4.4 mmol/L (3.5-5.1); Sodium Level 131 mmol/L (136-145); Troponin (Emerg Dept Use Only) < 0.02 ng/mL (0.0-0.045)
[2021-02-02 16:51] LABS: Magnesium 1.4 mg/dL (1.8-2.4)
[2021-02-02 16:54] LABS: Urine Blood 2+ (Negative); Urine Glucose Negative (Negative); Urine Protein 2+ (Negative); Urine Specific Gravity 1.015 (1.005-1.030)
[2021-02-02] MEDS ORDERED: Magnesium Sulfate 2gm IVPB 2 G/50 ML BAG IV ONE (17:09)
[2021-02-02 17:58] LABS: Urine Bacteria <20 /HPF (<20); Urine RBC <5 /HPF (NONE SEEN)
--- NOTE | 2021-02-02 18:10 | RAD REPORT ---
EXAM DESCRIPTION: CTAbdomen Pelvis Wo Contrast - 02/02/2021 5:58 pm CLINICAL HISTORY: ABD PAIN COMPARISON: No comparisons TECHNIQUE: CT of the abdomen and pelvis was performed. All CT scans are performed using dose optimization technique as appropriate and may include automated exposure control or mA/KV adjustment according to patient size. FINDINGS: Lower chest: Nodular ground-glass opacities in left lower lobe. Mild circumferential thick ening of the distal esophagus may reflect esophageal reflux. Liver: No acute abnormality or suspicious lesions. Biliary: Cholecystectomy Stomach: No significant focal abnormality. Duodenum: No significant focal abnormality. Pancreas: No significant abnormality. Spleen: No significant abnormality. Adrenal: No suspicious lesions. Kidney/ureter: No hydronephrosis. No renal calculi. Right renal scarring. Right lower pole renal lesi on noted this is likely a cyst. Retroperitoneum: No retroperitoneal adenopathy. Vascular: No aneurysm. Bowel: No significant focal abnormality. Normal appendix. Diverticulosis without diverticulitis. Peritoneum: Narrow neck fat containing ventral hernia with some associated mesenteric edema. Tiny fat containing umbilical hernia. Bladder: Grossly unremarkable. Reproductive: No adnexal masses. Bones: L1 compression fracture which is favored subacute or chronic. Other: n/a IMPRESSION: 1. Left lower lobe airspace disease concerning for pneumonia. 2. Fat containing ventral hernia with mesenteric edema the could reflect incarceration or strangulati on. Correlate clinically. 3. Age indeterminate L1 compression fracture which is favored subacute or chronic.
[2021-02-02] MEDS ORDERED: Levofloxacin 750mg IV 0 MG/0 ML BAG IV ONE (18:33)
--- NOTE | 2021-02-02 18:38 | EDPHYS ---
Physician Documentation [facility] Name: Mia Person Age: 65 yrs Sex: Female : 1955 Arrival Date: 02/02/2021 Time: 15:16 Bed 27 Private MD: ED Physician Deandre Curry HPI: 02/02 16:05 This 65 yrs old Female presents to ER via Wheelchair with complaints of upset kb stomach, heartburn. 16:05 The patient presents with abdominal pain in the upper abdomen. Onset: The kb symptoms/episode began/occurred today. The symptoms radiate to mid-sternal area. Associated signs and symptoms: Pertinent positives: nausea. The symptoms are described as constant. Modifying factors: The symptoms are alleviated by nothing, the symptoms are aggravated by nothing. Severity of pain: At its worst the pain was mild moderate in the emergency department the pain is unchanged. The patient has not experienced similar symptoms in the past. The patient has not recently seen a physician. Pt reports upper abd pain and heartburn to substernal area that started today. Reports nausea. 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 States she is afraid her blood sugar is high. . Historical: - Allergies: 15:24 Clindamycin; ll1 15:24 Morphine; ll1 - Home Meds: 16:16 Metformin Oral [Active]; unable to obtain all medications [Active]; jh5 - PMHx: 15:24 Cancer, Breast; Depression; Diabetes - NIDDM; RLS; ll1 - Immunization history:: Client reports receiving the 2nd dose of the Covid vaccine, Date received: May 2020. - Social history:: Smoking status: Patient reports the use of cigarette tobacco products, smokes one-half pack cigarettes per day. ROS: 16:04 Constitutional: Negative for fever, chills, and weight loss. kb 16:04 Cardiovascular: Positive for chest pain, of the mid-sternal area. 16:04 Abdomen/GI: Positive for abdominal pain, nausea, Negative for vomiting, diarrhea, constipation. 16:04 Neuro: Positive for altered mental status. 16:04 All other systems are negative. Exam: 16:04 Constitutional: This is a well developed, well nourished patient who is awake, alert, kb and in no acute distress. Head/Face: Normocephalic, atraumatic. ENT: Moist Mucous membranes Cardiovascular: Regular rate and rhythm with a normal S1 and S2. No gallops, murmurs, or rubs. No pulse deficits. Respiratory: Respirations even and unlabored. No increased work of breathing, no retractions or nasal flaring. Abdomen/GI: Soft, non-tender. No distention Skin: Warm, dry with normal turgor. Normal color. MS/ Extremity: Pulses equal, no cyanosis. Neurovascular intact. Full, normal range of motion. Neuro: Awake and alert, GCS 15, oriented to person, place, time, and situation. Moves all extremities. Normal gait. Psych: Awake, alert, with orientation to person, place and time. Behavior, mood, and affect are within normal limits. Vital Signs: 15:25 Pulse 110; Resp 18 S; Temp 100.1(TE); Pulse Ox 96% on R/A; jh5 16:07 BP 133 / 55; jh5 17:15 BP 141 / 60; Pulse 108; Resp 18; Pulse Ox 95% ; jh5 18:18 BP 144 / 96; Pulse 112; Resp 18; Temp 99(O); Pulse Ox 96% ; jh5 MDM: 15:20 Patient medically screened. kb 16:03 Data reviewed: vital signs, nurses notes. Data interpreted: Pulse oximetry: on room air kb is 96 %. Interpretation: normal. 16:05 ED course: strong smell of urine noted during exam. No abd tenderness on exam. . kb 18:28 Data reviewed: I have discussed the patient's presentation/case with the attending Emergency Department Physician; and as a result, I will admit patient. Counseling: I had a detailed discussion with the patient and/or guardian regarding: the historical points, exam findings, and any diagnostic results supporting the discharge/admit diagnosis, lab results, radiology results, the need for further work-up and treatment in the hospital. Refusal of service: The patient/guardian displays adequate decision making capability and despite a detailed discussion of alternatives, benefits, risks, and consequences refuses: Admission to the hospital for further work-up and treatment. ED course: Pt educated on need for admission for IV antibiotics. Pt states "No, I will take strong antibiotics at home, but I am not staying in the hospital." Pt states she wants to go home. 18:37 ED course: Pt refuses IV levaquin and wants to leave now. Pt A\\T\\Ox4. Ambulates with kb steady gait. . 02/02 15:28 Order name: Basic Metabolic Panel; Complete Time: 16:53 kb 02/02 15:28 Order name: CBC with Diff; Complete Time: 16:08 kb 02/02 15:28 Order name: LFT's; Complete Time: 16:53 kb 02/02 15:28 Order name: Magnesium; Complete Time: 16:53 kb 02/02 15:28 Order name: NT PRO-BNP; Complete Time: 16:53 kb 02/02 15:28 Order name: PT-INR; Complete Time: 16:08 kb 02/02 15:28 Order name: Troponin (emerg Dept Use Only); Complete Time: 16:53 kb 02/02 15:28 Order name: XRAY Chest (1 view); Complete Time: 16:28 kb 02/02 15:28 Order name: Urine Microscopic Only; Complete Time: 18:00 kb 02/02 15:28 Order name: Lipase; Complete Time: 16:53 kb 02/02 15:29 Order name: CT Head Brain wo Cont; Complete Time: 16:08 kb 02/02 16:22 Order name: Glucose, Ancillary Testing; Complete Time: 16:26 EDMS 02/02 16:54 Order name: Urine Dipstick-Ancillary; Complete Time: 16:54 EDMS 02/02 15:28 Order name: EKG; Complete Time: 15:29 kb 02/02 15:28 Order name: Cardiac monitoring; Complete Time: 16:07 kb 02/02 15:28 Order name: EKG - Nurse/Tech; Complete Time: 16:07 kb 02/02 15:28 Order name: IV Saline Lock; Complete Time: 15:44 kb 02/02 15:28 Order name: Labs collected and sent; Complete Time: 15:44 kb 02/02 15:28 Order name: O2 Per Protocol; Complete Time: 15:44 kb 02/02 15:28 Order name: O2 Sat Monitoring; Complete Time: 15:44 kb 02/02 15:28 Order name: Urine Dipstick-Ancillary (obtain specimen); Complete Time: 17:08 kb 02/02 16:07 Order name: Blood Glucose Level; Complete Time: 16:11 kb 02/02 17:03 Order name: Abdomen ; Complete Time: 18:12 EDMS Administered Medications: 18:52 Discontinued: Magnesium Sulfate 2 grams IVPB once over 2 hrs [facility] 17:14 Drug: Magnesium Sulfate 2 grams Route: IVPB; Infused Over: 2 hrs; Site: right upper arm;[facility] 18:41 Not Given (Patient Refused): LevaQUIN (levofloxacin) 750 mg 150 ml IVPB once over 90 kb mins 18:48 Drug: LevaQUIN (levofloxacin) 750 mg Route: PO; [facility] Disposition: 02/03 07:03 Co-signature as Attending Physician, Deandre Curry MD I agree with the assessment and rn plan of care. Attestation: The patient's history, exam findings, diagnostics, and a summary of any interventions or procedures was reviewed in detail with Teresa ARCE. Disposition Summary: 02/02/21 18:37 Discharge Ordered Location: Home kb Condition: Stable kb Diagnosis - Pneumonia, unspecified organism kb Followup: kb - With: Emergency Department - When: As needed - Reason: Worsening of condition Followup: kb - With: Private Physician - When: 2 - 3 days - Reason: Recheck today's complaints, Continuance of care, Re-evaluation by your physician Discharge Instructions: - Discharge Summary Sheet kb - Community-Acquired Pneumonia, Adult, [id number] kb Forms: - Medication Reconciliation Form kb - Thank You Letter kb - Antibiotic Education kb - Prescription Opioid Use kb - Work release form 5 Prescriptions: - levofloxacin 500 mg Oral Tablet - take 1 tablet by ORAL route once daily for 10 days; 10 tablet; Refills: 0, kb Product Selection Permitted Signatures: Dispatcher [employer] EDMS Teresa Aguilar FNP-C FNP-Ckb Nieto, Roman, MD MD rn Lewis, Lynsay, RN RN 1 Whit Mills RN RN 5 Corrections: (The following items were deleted from the chart) 02/02 17:03 16:55 Abdomen Pelvis W Con+CT.RAD.BRZ ordered. EDNC EDMS
--- NOTE | 2021-02-02 18:38 | ER ---
Nurse's Notes [facility] Name: Mia Person Age: 65 yrs Sex: Female : 1955 Arrival Date: 02/02/2021 Time: 15:16 Bed 27 Private MD: Diagnosis: Pneumonia, unspecified organism Presentation: 02/02 15:25 Ebola Screen: Patient denies travel to an Ebola-affected area in the 21 days before 1 illness onset. Risk Assessment: Do you want to hurt yourself or someone else? Patient reports no desire to harm self or others. 15:25 Method Of Arrival: Wheelchair 1 15:25 Acuity: NICOLLE 2 [facility] 15:25 Chief complaint: Patient states: Pt states she has an upset stomach, reflux, and while jh5 at work she was seeing things and writing things that were not correct for her work environment. Coronavirus screen: cough unrelated to allergies. Onset of symptoms was February 02, 2021. 16:13 Initial Sepsis Screen: Does the patient meet any 2 criteria? No. Patient's initial [facility] sepsis screen is negative. Does the patient have a suspected source of infection?. Triage Assessment: 16:12 General: Appears comfortable, obese, Behavior is calm, cooperative. 5 16:16 Pain: Complains of pain in abdomen. [facility] Historical: - Allergies: 15:24 Clindamycin; ll1 15:24 Morphine; ll1 - Home Meds: 16:16 Metformin Oral [Active]; unable to obtain all medications [Active]; 5 - PMHx: 15:24 Cancer, Breast; Depression; Diabetes - NIDDM; RLS; ll1 - Immunization history:: Client reports receiving the 2nd dose of the Covid vaccine, Date received: May 2020. - Social history:: Smoking status: Patient reports the use of cigarette tobacco products, smokes one-half pack cigarettes per day. Screenin:11 Abuse screen: Denies threats or abuse. Denies injuries from another. Nutritional 5 screening: No deficits noted. Tuberculosis screening: No symptoms or risk factors identified. Fall Risk IV access (20 points). Assessment: 15:42 Reassessment: Pt to CT via wheelchair . aa5 18:30 Reassessment: Pt verbalizes she wants to go home; pt states "give me a strong jh5 antibiotic I can take at home and let me go!". 18:37 Reassessment: Pt refusing IV antibiotics and wants to leave; ELIZABETH Moore notified. [facility] Vital Signs: 15:25 Pulse 110; Resp 18 S; Temp 100.1(TE); Pulse Ox 96% on R/A; jh5 16:07 BP 133 / 55; jh5 17:15 BP 141 / 60; Pulse 108; Resp 18; Pulse Ox 95% ; jh5 18:18 BP 144 / 96; Pulse 112; Resp 18; Temp 99(O); Pulse Ox 96% ; jh5 ED Course: 15:16 Patient arrived in ED. am2 15:19 Teresa Aguilar [facility]-C [facility]. kb 15:19 Deandre Curry MD is Attending Physician. kb 15:24 Arm band placed on Patient placed in an exam room, on a stretcher. ll1 15:25 Triage completed. ll1 15:35 Initial lab(s) drawn, by me, sent to lab. Inserted saline lock: 22 gauge in right upper aa5 arm, using aseptic technique. Blood collected. 15:47 CT Head Brain wo Cont In Process Unspecified. EDMS 16:11 Patient has correct armband on for positive identification. Bed in low position. Side [facility] rails up X 1. 16:11 No provider procedures requiring assistance completed. 5 16:16 XRAY Chest (1 view) In Process Unspecified. EDMS 17:58 Abdomen In Process Unspecified. EDMS 18:51 IV discontinued, bleeding controlled, No redness/swelling at site. [facility] Administered Medications: 18:52 Discontinued: Magnesium Sulfate 2 grams IVPB once over 2 hrs [facility] 17:14 Drug: Magnesium Sulfate 2 grams Route: IVPB; Infused Over: 2 hrs; Site: right upper arm;[facility] 18:41 Not Given (Patient Refused): LevaQUIN (levofloxacin) 750 mg 150 ml IVPB once over 90 kb mins 18:48 Drug: LevaQUIN (levofloxacin) 750 mg Route: PO; [facility] Outcome: 18:37 Discharge ordered by . kb 18:39 Discharged to home ambulatory. [facility] 18:39 Condition: good 18:39 Discharge instructions given to patient, Instructed on discharge instructions, follow up and referral plans. medication usage, safety practices, Demonstrated understanding of instructions, follow-up care, medications. 18:52 Patient left the ED. jh5 Signatures: Dispatcher [employer] EDTeresa Noel, [employer] O[employer]ATOR-Kaylah Lerma, RN RN aa5 Angelia Gr Lynsay RN RN ll1 Whit Mills RN RN jh5
[2021-02-02] MEDS ORDERED: levoFLOXacin 750 MG TAB ONE (18:43)
[2021-02-02 19:43] VITALS: BP 144/96; TEMP 99; O2SAT 96
== END 2021-02-02 18:52 | disposition home or self-care (01) ==
LOC: ER 15:14
DX: J18.9 Pneumonia, unspecified organism (principal); E11.9 Type 2 diabetes mellitus without complications; Z88.3 Allergy status to other anti-infective agents; Z88.5 Allergy status to narcotic agent
CPT/HCPCS: 93005; 85025; 80048; 36415; 83735; 85610; 82947; 80076; 84484; 83690; 83880; 70450; 74176; 71045; 96374; 99284; J3475; 81003; 81015

== ENCOUNTER 2021-03-06 11:42 | Emergency (ER) | payer OTHER ==
--- OUTSIDE RECORDS SUMMARY | 2021-03-06 11:46 | XMS REPORT | Continuity of Care Document ---
:1955 Author Organization [facility] t Address [address] [place] [address] Dr. Weinstein [address] [place] [address] Care Team Providers Name Role Phone Kenia CHAIREZ Attending Clinician Unavailable Linda Chairez MDHAna Attending Clinician Doctor Unassigned, Name Attending Clinician Unavailable Lizzette PLASCENCIA Attending Clinician Unavailable Payers Payer Name Policy Type Policy Number Effective Date Expiration Date S ource COMMERCIAL [id number] 2019 NON-CONTRACT 00:00:00 GENERIC AGENCY GENERIC [id number] 2019 00:00:00 Problems Condition Condition Condition Status Onset Resolution Last Treating Co mments Source Name Details Category Date Date Treatment Clinician Date No known No known Disease Unive rs active active ity of problems problems [facility] Allergies, Adverse Reactions, Alerts Allergy Allergy Status Severity Reaction(s) Onset Inactive Treating Comm ents Source Name Type Date Date Clinician Morphine Propensi Active Other - See Hypotens i Univers ty to comments 07-22 on ity of adverse 00:00: [place] reaction 00 [facility] s [place] MORPHINE DRUG Active Other-Cmnt Univ ers INGREDI 07-22 ity of 00:00: [address] NO KNOWN Drug Active Univers ALLERGIE Class ity of S [facility] Social History Social Habit Start Date Stop Date Quantity Comments Source History of Cigarette Smoker Universi ty of tobacco use [facility] Exposure to Not sure University of SARS-CoV-2 [facility] (event) [place] Tobacco use and 2020-07-22 2020-07-22 Never used Universit y of exposure 00:00:00 00:00:00 [facility] Sex [birth year] Universit y of 00:00:00 00:00:00 [facility] Smoking Status Start Date Stop Date Source Unknown if ever smoked Universit y of [facility] Current every day smoker 2020-07-22 00:00:00 Uni versity of [facility] Medications Ordered Filled Start Stop Current Ordering Indication Dosage Frequency Signature Comments Components Source Medication Medication Date Date Medication? Clinician (SIG) Name Name spironolact Yes 25mg Take 25 mg Univers one 25 mg 4-22 by mouth ity of tablet 14:49: daily. [address] glimepiride Yes 4mg Take 4 mg U nivers 4 mg tablet 4-22 by mouth ity of 14:49: daily with [place] [address] breakfast. Medical Branch pioglitazon Yes 15mg Take 15 mg Univers e 15 mg 4-22 by mouth ity of tablet 14:49: daily. [place] [address] Medical Branch gabapentin Yes 800mg Take 800 Un yazmin 800 mg 4-22 mg by ity of tablet 14:49: mouth 3 [place] [address] (three) Medical times [place] daily. rOPINIRole Yes .25mg Take 0.25 U nivers 0.25 mg 4-22 mg by ity of tablet 14:49: mouth 2 [place] [address] (two) Medical times [place] daily. hydrOXYzine Yes 25mg Take 25 mg Univers 25 mg 4-22 by mouth ity of tablet 14:49: at [place] [address] bedtime. Medical 1-2 tabs Branch levothyroxi Yes 50ug Take 50 Uni vers ne 50 mcg 4-22 mcg by ity of tablet 14:49: mouth [place] [address] every Medical morning. Branch spironolact Yes 25mg Take 25 mg Univers one 25 mg 4-22 by mouth ity of tablet 14:49: daily. [place] [address] Medical Branch glimepiride Yes 4mg Take 4 mg U nivers 4 mg tablet 4-22 by mouth ity of 14:49: daily with [place] [address] breakfast. Medical Branch pioglitazon Yes 15mg Take 15 mg Univers e 15 mg 4-22 by mouth ity of tablet 14:49: daily. [place] [address] Medical Branch gabapentin Yes 800mg Take 800 Un yazmin 800 mg 4-22 mg by ity of tablet 14:49: mouth 3 [place] [address] (three) Medical times Branch daily. rOPINIRole 2021-0 Yes .25mg Take 0.25 U nivers 0.25 mg 4-22 mg by ity of tablet 14:49: mouth 2 [place] [address] (two) Medical times Branch daily. hydrOXYzine Yes 25mg Take 25 mg Univers 25 mg 4-22 by mouth ity of tablet 14:49: at [place] [address] bedtime. Medical 1-2 tabs Branch levothyroxi Yes 50ug Take 50 Uni vers ne 50 mcg 4-22 mcg by ity of tablet 14:49: mouth [place] [address] every Medical morning. Branch Immunizations Ordered Filled Immunization Date Status Comments [facility] e Immunization Name Name SARS-COV-2 COVID-19 2020-07-08 Completed Unive rsity of PFIZER VACCINE 00:00:00 [facility] SARS-COV-2 COVID-19 2020-07-08 Completed Unive rsity of PFIZER VACCINE 00:00:00 [facility] SARS-COV-2 COVID-19 2020-07-08 Completed Unive rsity of PFIZER VACCINE 00:00:00 [facility] SARS-COV-2 COVID-19 2020-06-17 Completed Unive rsity of PFIZER VACCINE 00:00:00 [facility] SARS-COV-2 COVID-19 2020-06-17 Completed Unive rsity of PFIZER VACCINE 00:00:00 [facility] SARS-COV-2 COVID-19 2020-06-17 Completed Unive rsity of PFIZER VACCINE 00:00:00 [facility] Vital Signs Vital Name Observation Time Observation Value Comments Source Systolic blood 2020-07-22 14:35:00 130 mm[Hg] Univer sity of pressure [facility] Diastolic blood 2020-07-22 14:35:00 60 mm[Hg] Unive rsity of pressure [facility] Heart rate 2020-07-22 14:35:00 99 /min [facility] Respiratory rate 2020-07-22 14:35:00 20 /min Univ ersity of [facility] Body height 2020-07-22 14:35:00 160 cm [facility] Body weight 2020-07-22 14:35:00 99.519 kg [facility] BMI 2020-07-22 14:35:00 38.86 kg/m2 [facility] ty [facility] Oxygen saturation in 2020-07-22 14:35:00 96 /min University of Arterial blood by [facility] Pulse oximetry Branch Procedures Procedure Date / Time Performed Performing Clinician [facility] e CONSENT/REFUSAL FOR 2020-07-22 13:39:40 Doctor Unassigned, No Un [facility] DIAGNOSIS AND Name Medical Branch TREATMENT Encounters Start End Encounter Admission Attending Care Care Encounter Source Date/Time Date/Time Type Type Clinicians Facility Department ID 2020-09-02 2020-09-02 Outpatient R [facility] [id number] Univers 09:30:00 09:30:00 SENDIL [id number] ity [facility] 2020-09-02 2020-09-02 Outpatient R [facility]ELA [facility] [id number] Univers 09:30:00 09:30:00 SENDIL ity [facility] 2020-07-29 2020-07-29 Outpatient R [facility]ELA [facility] [id number] Univers 15:00:00 15:00:00 SENDIL [id number] ity [facility] 2020-07-29 2020-07-29 Outpatient R [facility]ELA [facility] [id number] Univers 15:00:00 15:00:[address] [facility] 2020-07-22 2020-07-22 [facility] [id number] Univers 09:11:10 10:16:22 Visit Sendil Kenia Sesay [id number] ity [facility] [id number] [place] Profess[place] [phone] Ut dical [facility] 059 Branch [facility] 2020-07-22 2020-07-22 [facility] [id number] Univers 09:30:00 09:30:00 [facility] 2020-07-22 2020-07-22 Orders Doctor AGUILLON [id number] Univers 00:00:00 00:00:00 Only Unassigned, MAINOR [id number] ity of [place] [facility] [id number] [place] [id number] [address] 2020-07-08 2020-07-08 Outpatient R TEMO [facility] [id number] Univers 08:50:00 08:13:[address] [facility] 2020-06-24 2020-06-24 Outpatient R [facility]HAELA [facility] [id number] Univers 11:30:00 11:30:[address] [facility] 2020-06-17 2020-06-17 Outpatient R TEMO [facility] [id number] Univers 08:50:00 08:54:[address] [facility] Results Test Description Test Time Test Comments Results Result Comments Source SARS-COV2/RT-PCR ([facility]) 2019-10-08 11:29:00 Test Item Value Reference Range Interpretation Comme nts SARS-COV2/RT-PCR (test code = 1188762) Not Detected Not Detected, N egative SARS-COV-2 PERFORMING LAB (test [facility] = [id number]) Negative results do not preclude SARS-CoV-2 infection and should not be used as the sole basis for patient management decisions. Negative results must be combined with clinical observations, patient history, and epidemiological information. A false negative result may occur if a specimen is improperly collected, transported or handled.The limit of detection for this assay is 250 copies/mL.This SARS CoV-2 test is a rapid, real-time RT-PCR test intended for the qualitative detection of nucleic acid from SARS-CoV-2 in a nasopharyngeal swab specimen collected from individuals suspected of COVID-19 by their healthcare provider.This test has not been Food and Drug Administration (FDA) cleared or approved and has been authorized by FDA under an Emergency Use Authorization (EUA). This EUA will be effective until the declaration that circumstances exist justifying the authorization of the emergency use of in vitro diagnostic tests for detection and/or diagnosis of COVID-19 is terminated under Section 564(b)(2) of the Act or the EUA is revoked under Section 564(g) of the Act.Fact Sheet for Healthcare Pro viders:https://www.[employer].com/Documents/Xpert%20Xpress%20SARS%20CoV-2/Fact%20Sh eets/302-3802%20GGNN-QGQ-6%20HEALTHCARE%20PROVIDERS%20FACT%20SHEET.pdfFact Sheet for Healthcare Patients:https://www.[employer]B2Brev/Documents/Xpert%20Xpress%20SARS%20CoV-2/Fact%20Sheets/302-3801%20SARS-COV -2%20PATIENT%20FACT%20SHEET.pdfPerforming Laboratory:[facility] [place] [address]
--- NOTE | 2021-03-06 13:00 | RAD REPORT ---
EXAM DESCRIPTION: RAD - Chest Single View - 03/06/2021 12:39 pm CLINICAL HISTORY: cough COMPARISON: February 02 imaging ; November 2019 TECHNIQUE: AP portable chest image was obtained 03/06/2021 12:39 pm . FINDINGS: Bibasilar interstitial opacification is present partly due to under penetrated portable te chnique and slightly shallow inspiration. Pattern is more pronounced than the 2019 study. Left base o pacification seen November 02 has cleared. Upper lobe vasculature within normal limits. Heart size is normal. No measurable pleural effusion and no pneumothorax. No acute bony abnormality seen. No acute aortic findings suspected. IMPRESSION: Chest has improved since the November 02 study but continues to show prominent bibasilar interstitial pattern that could be interstitial edema or infiltrate.
--- NOTE | 2021-03-06 13:48 | ER ---
Nurse's Notes [facility] Name: Mia Person Age: 65 yrs Sex: Female : 1955 Arrival Date: 03/06/2021 Time: 11:44 Bed 20 Private MD: Diagnosis: Pneumonia, unspecified organism Presentation: 03/06 11:49 Chief complaint: Patient states: NIHARIKA ear pain, watery/itchy eyes and cough x1 week. vg1 Denies NVD. Coronavirus screen: Vaccine status: Patient reports receiving the 2nd dose of the covid vaccine. Client denies travel out of the [place] in the last 14 days. Ebola Screen: Patient negative for fever greater than or equal to 101.5 degrees Fahrenheit, and additional compatible Ebola Virus Disease symptoms. Initial Sepsis Screen: Does the patient meet any 2 criteria? No. Patient's initial sepsis screen is negative. Does the patient have a suspected source of infection? No. Patient's initial sepsis screen is negative. Risk Assessment: Do you want to hurt yourself or someone else? Patient reports no desire to harm self or others. Onset of symptoms was February 27, 2021. 11:49 Method Of Arrival: Ambulatory vg1 11:49 Acuity: NICOLLE 4 vg1 Triage Assessment: 11:51 General: Appears in no apparent distress. comfortable, Behavior is calm, cooperative. vg1 Pain: Complains of pain in right ear and left ear Pain currently is 4 out of 10 on a pain scale. EENT: Historical: - Allergies: 11:51 Clindamycin; vg1 11:51 Morphine; vg1 - Home Meds: 11:51 Spironolactone Oral [Active]; gabapentin oral [Active]; hydroxyzine HCl Oral [Active]; vg1 - PMHx: 11:51 Cancer, Breast; Depression; Diabetes - NIDDM; RLS; vg1 - PSHx: 11:51 Cholecystectomy; Mastectomy-Left; section; vg1 - Immunization history:: Client reports receiving the 2nd dose of the Covid vaccine. - Social history:: Smoking status: Patient reports the use of cigarette tobacco products, smokes one-half pack cigarettes per day. Screenin:29 Abuse screen: Denies threats or abuse. Denies injuries from another. Nutritional jg9 screening: No deficits noted. Tuberculosis screening: No symptoms or risk factors identified. Fall Risk None identified. Assessment: 12:00 General: Appears in no apparent distress. Behavior is calm, cooperative, appropriate jg9 for age. Pain: Complains of pain in right ear and left ear Pain does not radiate. Pain currently is 4 out of 10 on a pain scale. Quality of pain is described as Pain began 1 week. Neuro: No deficits noted. Cardiovascular: No deficits noted. Respiratory: Reports cough that is non-productive, since 1 week. GI: No deficits noted. : No deficits noted. EENT: Reports itchy/runny nose and eyes-tx with Benadryl at home with no improvement. 12:29 Reassessment: Patient refusing covid test, "I have been vaccinated, and I don't care jg9 what that lady said she did get a sample, I felt it burning", per patient. Patient educated on the possibility of being vaccinated and still being able to test positive for COVID. Patient continued to refuse. Vital Signs: 11:49 BP 102 / 57; Pulse 102; Resp 18; Temp 97.9; Pulse Ox 100% ; Weight 115.67 kg; Height 5 vg1 ft. 3 in. (160.02 cm); Pain 4/10; 12:15 BP 92 / 45; Pulse 95; Resp 23 S; Pulse Ox 100% on R/A; jg9 13:46 BP 107 / 47; kb 13:55 BP 118 / 68; Pulse 92; Resp 20 S; Pulse Ox 99% on R/A; jg9 11:49 Body Mass Index 45.17 (115.67 kg, 160.02 cm) vg1 ED Course: 11:44 Patient arrived in ED. ds1 11:51 Triage completed. vg1 11:51 Arm band placed on. vg1 11:54 Teresa Aguilar FNP-C is [facility]. kb 11:54 Deandre Curry MD is Attending Physician. kb 12:16 Patient has correct armband on for positive identification. Placed in gown. Bed in low mh5 position. Warm blanket given. Pulse ox on. NIBP on. 12:16 PATIENT REFUSED COVID TEST. mh5 12:39 Chest Single View In Process Unspecified. EDMS 14:05 No provider procedures requiring assistance completed. jg9 14:05 Patient did not have IV access during this emergency room visit. jg9 Administered Medications: 13:55 Drug: Zithromax (azithromycin) 500 mg Route: PO; jg9 14:05 Follow up: Response: No adverse reaction jg9 Outcome: 13:47 Discharge ordered by MD. bach 14:05 Discharged to home ambulatory. jg9 14:05 Condition: stable 14:05 Discharge instructions given to patient, Instructed on discharge instructions, follow up and referral plans. 14:06 Patient left the ED. jg9 Signatures: Dispatcher [employer] EDTeresa Noel, WELDING ROD COATER-C WELDING ROD [employer]ATER-Dafne Lima, Janee Armenta RN RN vg1 Christina Duran jg9
--- NOTE | 2021-03-06 13:48 | EDPHYS ---
Physician Documentation [facility] Name: Mia Person Age: 65 yrs Sex: Female : 1955 Arrival Date: 03/06/2021 Time: 11:44 Bed 20 Private MD: ED Physician Deandre Curry HPI: 03/06 13:27 This 65 yrs old Female presents to ER via Ambulatory with complaints of Cough, Ear Pain.kb 13:27 The patient or guardian reports cough. Onset: The symptoms/episode began/occurred 1 kb week(s) ago. Severity of symptoms: At their worst the symptoms were mild, in the emergency department the symptoms are unchanged. Modifying factors: The symptoms are alleviated by nothing, the symptoms are aggravated by nothing. Associated signs and symptoms: Pertinent negatives: chest pain, fever, sore throat. The patient has not experienced similar symptoms in the past. The patient has not recently seen a physician. Pt reports itchy eyes and nose, fullness to ears, slight cough for a week. States she had pneumonia last month so she wanted to make sure it wasn't back. . Historical: - Allergies: 11:51 Clindamycin; vg1 11:51 Morphine; vg1 - Home Meds: 11:51 Spironolactone Oral [Active]; gabapentin oral [Active]; hydroxyzine HCl Oral [Active]; vg1 - PMHx: 11:51 Cancer, Breast; Depression; Diabetes - NIDDM; RLS; vg1 - PSHx: 11:51 Cholecystectomy; Mastectomy-Left; section; vg1 - Immunization history:: Client reports receiving the 2nd dose of the Covid vaccine. - Social history:: Smoking status: Patient reports the use of cigarette tobacco products, smokes one-half pack cigarettes per day. ROS: 13:26 Constitutional: Negative for fever, chills, and weight loss. kb 13:26 Eyes: Positive for itching. 13:26 ENT: Positive for ear fullness, itchy nose. 13:26 Respiratory: Positive for cough, Negative for dyspnea on exertion, hemoptysis, orthopnea, pleurisy, shortness of breath, sputum production, wheezing. 13:26 All other systems are negative. Exam: 13:27 Constitutional: This is a well developed, well nourished patient who is awake, alert, kb and in no acute distress. Head/Face: Normocephalic, atraumatic. ENT: Moist Mucous membranes Cardiovascular: Regular rate and rhythm with a normal S1 and S2. No gallops, murmurs, or rubs. No pulse deficits. Respiratory: Respirations even and unlabored. No increased work of breathing, no retractions or nasal flaring. Skin: Warm, dry with normal turgor. Normal color. MS/ Extremity: Pulses equal, no cyanosis. Neurovascular intact. Full, normal range of motion. Neuro: Awake and alert, GCS 15, oriented to person, place, time, and situation. Moves all extremities. Normal gait. Psych: Awake, alert, with orientation to person, place and time. Behavior, mood, and affect are within normal limits. Vital Signs: 11:49 BP 102 / 57; Pulse 102; Resp 18; Temp 97.9; Pulse Ox 100% ; Weight 115.67 kg; Height 5 vg1 ft. 3 in. (160.02 cm); Pain 4/10; 12:15 BP 92 / 45; Pulse 95; Resp 23 S; Pulse Ox 100% on R/A; jg9 13:46 BP 107 / 47; kb 13:55 BP 118 / 68; Pulse 92; Resp 20 S; Pulse Ox 99% on R/A; jg9 11:49 Body Mass Index 45.17 (115.67 kg, 160.02 cm) vg1 MDM: 11:54 Patient medically screened. kb 13:26 Data reviewed: vital signs, nurses notes. Data interpreted: Pulse oximetry: on room air kb is 100 %. Interpretation: normal. Counseling: I had a detailed discussion with the patient and/or guardian regarding: the historical points, exam findings, and any diagnostic results supporting the discharge/admit diagnosis, radiology results, the need for outpatient follow up, a family practitioner, to return to the emergency department if symptoms worsen or persist or if there are any questions or concerns that arise at home. ED course: Pt refused covid and flu test. 03/06 12:14 Order name: Chest Single View; Complete Time: 13:03 EDMS 03/06 13:28 Order name: Vital Signs; Complete Time: 14:04 kb Administered Medications: 13:55 Drug: Zithromax (azithromycin) 500 mg Route: PO; jg9 14:05 Follow up: Response: No adverse reaction jg9 Disposition: 15:27 Co-signature as Attending Physician, Deandre Curry MD I agree with the assessment and rn plan of care. Attestation: The patient's history, exam findings, diagnostics, and a summary of any interventions or procedures was reviewed in detail with Teresa ARCE. Disposition Summary: 03/06/21 13:47 Discharge Ordered Location: Home kb Condition: Stable kb Diagnosis - Pneumonia, unspecified organism kb Followup: kb - With: Emergency Department - When: As needed - Reason: Worsening of condition Followup: kb - With: Private Physician - When: 2 - 3 days - Reason: Recheck today's complaints, Continuance of care, Re-evaluation by your physician Discharge Instructions: - Discharge Summary Sheet kb - Community-Acquired Pneumonia, Adult, [id number] kb - Form - Return To Work jg9 Forms: - Medication Reconciliation Form kb - Thank You Letter kb - Antibiotic Education kb - Prescription Opioid Use kb Prescriptions: - Zithromax 500 mg Oral Tablet - take 1 tablet by ORAL route once daily for 5 days; 5 tablet; Refills: 0, kb Product Selection Permitted Signatures: Dispatcher [employer] EDMS Teresa Aguilar, YAZMIN TUBBSP-CkDeandre Moy MD MD rn Janee Osuna RN RN Christina Vivas jg9 Corrections: (The following items were deleted from the chart) 12:49 12:47 Chest Single View+RAD.RAD.BRZ ordered. EDUT EDMS
[2021-03-06] MEDS ORDERED: AZITHROMYCIN 250 MG TAB ONE (13:58)
[2021-03-06 14:28] VITALS: TEMP 97.9
[2021-03-06 14:31] VITALS: BP 118/68; O2SAT 99
== END 2021-03-06 14:06 | disposition home or self-care (01) ==
LOC: ER 11:42
DX: J18.9 Pneumonia, unspecified organism (principal); F17.210 Nicotine dependence, cigarettes, uncomplicated; E11.9 Type 2 diabetes mellitus without complications; Z88.3 Allergy status to other anti-infective agents; Z88.5 Allergy status to narcotic agent; Z85.3 Personal history of malignant neoplasm of breast; Z90.12 Acquired absence of left breast and nipple
CPT/HCPCS: 71045; 99283

== ENCOUNTER 2021-03-07 19:56 | Emergency (ER) | payer OTHER ==
--- OUTSIDE RECORDS SUMMARY | 2021-03-07 19:58 | XMS REPORT | Continuity of Care Document ---
:[address] [facility] t Address [address] [place] [address] Care Team Providers Name Role Phone Kenia CHAIREZ Attending Clinician Unavailable Linda Chairez MDHAna Attending Clinician Doctor Unassigned, Name Attending Clinician Unavailable Lizzette PLASCENCIA Attending Clinician Unavailable Payers Payer Name Policy Type Policy Number Effective Date Expiration Date S ource COMMERCIAL [id number] 2019 NON-CONTRACT 00:00:00 GENERIC AGENCY GENERIC [id number] 2019 00:00:00 Problems Condition Condition Condition Status Onset Resolution Last Treating Co mments Source Name Details Category Date Date Treatment Clinician Date No known No known Disease Unive rs active active ity of problems problems [facility] Allergies, Adverse Reactions, Alerts Allergy Allergy Status Severity Reaction(s) Onset Inactive Treating Comm ents Source Name Type Date Date Clinician Morphine Propensi Active Other - See Hypotens i Univers ty to comments 07-22 on ity of adverse 00:00: [place] reaction [address] [facility] [place] MORPHINE DRUG Active Other-Cmnt Univ ers INGREDI 07-22 ity of 00:00: [place] [address] [place] [address] NO KNOWN Drug Active Univers ALLERGIE Class ity of S [facility] Social History Social Habit Start Date Stop Date Quantity Comments Source History of Cigarette Smoker Universi ty of tobacco use [facility] Exposure to Not sure University of SARS-CoV-2 [facility] (event) [place] Tobacco use and 2020-07-22 2020-07-22 Never used Universit y of exposure 00:00:00 00:00:00 [facility] Sex [birth year] Universit y of 00:00:00 00:00:00 [facility] Smoking Status Start Date Stop Date Source Unknown if ever smoked Universit y of [facility] Current every day smoker 2020-07-22 00:00:[address] [facility] Medications Ordered Filled Start Stop Current Ordering Indication Dosage Frequency Signature Comments Components Source Medication Medication Date Date Medication? Clinician (SIG) Name Name spironolact Yes 25mg Take 25 mg Univers one 25 mg 4-22 by mouth ity of tablet 14:49: daily. [place] [address] Medical Branch glimepiride Yes 4mg Take 4 mg U nivers 4 mg tablet 4-22 by mouth ity of 14:49: daily with [place] [address] breakfast. Medical Branch pioglitazon Yes 15mg Take 15 mg Univers e 15 mg 4-22 by mouth ity of tablet 14:49: daily. [place] [address] Medical Branch gabapentin Yes 800mg Take 800 Un yazmin 800 mg 4-22 mg by ity of tablet 14:49: mouth 3 [place] [address] (three) Medical times [place] daily. rOPINIRole Yes .25mg Take 0.25 U nivers 0.25 mg 4-22 mg by ity of tablet 14:49: mouth 2 [place] [address] (two) Medical times [place] daily. hydrOXYzine Yes 25mg Take 25 mg Univers 25 mg 4-22 by mouth ity of tablet 14:49: at [place] [address] bedtime. Medical 1-2 tabs Branch levothyroxi Yes 50ug Take 50 Uni vers ne 50 mcg 4-22 mcg by ity of tablet 14:49: mouth [place] [address] every Medical morning. Branch spironolact Yes 25mg Take 25 mg Univers one 25 mg 4-22 by mouth ity of tablet 14:49: daily. [place] [address] Medical Branch glimepiride Yes 4mg Take 4 mg U nivers 4 mg tablet 4-22 by mouth ity of 14:49: daily with [place] [address] breakfast. Medical Branch pioglitazon Yes 15mg Take 15 mg Univers e 15 mg 4-22 by mouth ity of tablet 14:49: daily. [place] [address] Medical Branch gabapentin Yes 800mg Take 800 Un yazmin 800 mg 4-22 mg by ity of tablet 14:49: mouth 3 [place] [address] (three) Medical times Branch daily. rOPINIRole 2021-0 Yes .25mg Take 0.25 U nivers 0.25 mg 4-22 mg by ity of tablet 14:49: mouth 2 [place] [address] (two) Medical times Branch daily. hydrOXYzine Yes 25mg Take 25 mg Univers 25 mg 4-22 by mouth ity of tablet 14:49: at [place] [address] bedtime. Medical 1-2 tabs Branch levothyroxi Yes 50ug Take 50 Uni vers ne 50 mcg 4-22 mcg by ity of tablet 14:49: mouth [place] 43 every Medical morning. Branch Immunizations Ordered Filled Immunization Date Status Comments [facility] e Immunization Name Name SARS-COV-2 COVID-19 2020-07-08 Completed Unive rsity of PFIZER VACCINE 00:00:00 [facility] SARS-COV-2 COVID-19 2020-07-08 Completed Unive rsity of PFIZER VACCINE 00:00:00 [facility] SARS-COV-2 COVID-19 2020-07-08 Completed Unive rsity of PFIZER VACCINE 00:00:00 [facility] SARS-COV-2 COVID-19 2020-06-17 Completed Unive rsity of PFIZER VACCINE 00:00:00 [facility] SARS-COV-2 COVID-19 2020-06-17 Completed Unive rsity of PFIZER VACCINE 00:00:00 [facility] SARS-COV-2 COVID-19 2020-06-17 Completed Unive rsity of PFIZER VACCINE 00:00:00 [facility] Vital Signs Vital Name Observation Time Observation Value Comments Source Systolic blood 2020-07-22 14:35:00 130 mm[Hg] Univer sity of pressure [facility] Diastolic blood 2020-07-22 14:35:00 60 mm[Hg] Unive rsity of pressure [facility] Heart rate 2020-07-22 14:35:00 99 /min [facility] Respiratory rate 2020-07-22 14:35:00 20 /min Univ ersity of [facility] Body height 2020-07-22 14:35:00 160 cm [facility] Body weight 2020-07-22 14:35:00 99.519 kg [facility] BMI 2020-07-22 14:35:00 38.86 kg/m2 Universi ty [facility] Oxygen saturation in 2020-07-22 14:35:00 96 /min University Arterial blood by [facility] Pulse oximetry Branch Procedures Procedure Date / Time Performed Performing Clinician [facility] e CONSENT/REFUSAL FOR 2020-07-22 13:39:40 Doctor Unassigned, No Un [facility] DIAGNOSIS AND Name Medical Branch TREATMENT Encounters Start End Encounter Admission Attending Care Care Encounter Source Date/Time Date/Time Type Type Clinicians Facility Department ID 2020-09-02 2020-09-02 Outpatient R MIHAELA [facility] [id number] Univers 09:30:00 09:30:00 SENDIL [id number] ity [facility] 2020-09-02 2020-09-02 [facility] [id number] Univers 09:30:00 09:30:00 SENDIL ity [facility] 2020-07-29 2020-07-29 Outpatient R [facility]A [facility] [id number] Univers 15:00:00 15:00:00 SENDIL [id number] ity [facility] 2020-07-29 2020-07-29 Outpatient R MIHAELA [facility] [id number] Univers 15:00:00 15:00:00 SENDIL [facility] 2020-07-22 2020-07-22 [facility] [id number] Univers 09:11:10 10:16:22 Visit Sendil Kenia Sesay [id number] [facility] [id number] [place] [facility] 059 [facility] 2020-07-22 2020-07-22 [facility] [id number] Univers 09:30:00 09:30:00 SENDIL ity [facility] 2020-07-22 2020-07-22 Orders Doctor AGUILLON [id number] Univers 00:00:00 00:00:00 Only Unassigned, MAINOR [id number] ity of [place] [facility] [id number] [place] [id number] [address] 2020-07-08 2020-07-08 Outpatient R TEMO [facility] [id number] Univers 08:50:00 08:13:00 [facility] 2020-06-24 2020-06-24 Outpatient R MIHAELA [facility] [id number] Univers 11:30:00 11:30:00 SENDIL [facility] 2020-06-17 2020-06-17 Outpatient R TEMO [facility] [id number] Univers 08:50:00 08:54:57 [facility] Results Test Description Test Time Test Comments Results Result Comments Source SARS-COV2/RT-PCR ([facility]) 2019-10-08 11:29:00 Test Item Value Reference Range Interpretation Comme nts SARS-COV2/RT-PCR (test code = [id number]) Not Detected Not Detected, N egative SARS-COV-2 PERFORMING LAB (test code = [facility] [id number]) Negative results do not preclude SARS-CoV-2 infection [...] of the Act.Fact Sheet for Healthcare Pro viders:https://www.Inkd.com.TinyBytes/Documents/Xpert%20Xpress%20SARS%20CoV-2/Fact%20Sh eets/302-6652%62WKVV-BFQ-0%20HEALTHCARE%20PROVIDERS%20FACT%20SHEET.pdfFact Sheet for Healthcare Patients:https://www.Gravie.TinyBytes/Documents/Xpert%20Xpress%20SARS%20CoV-2/Fact%20Sheets/930-0973%20SARS-COV -2%20PATIENT%20FACT%20SHEET.pdfPerforming Laboratory:[facility] [place] [address]
[2021-03-07] MEDS ORDERED: FENTANYL CITR 100 MCG/2 ML ONE (20:05)
[2021-03-07] MEDS ORDERED: NA CHLORIDE 0.9% 100 ML ONE (20:08)
[2021-03-07] MEDS ORDERED: TETANUS & DIPHTHERIA TOX,ADULT 0.5 ML VIAL ONE (20:08)
[2021-03-07] MEDS ORDERED: CEFAZOLIN SODIUM 1 GM/VIAL ONE (20:08)
[2021-03-07] MEDS ORDERED: KETAMINE HCL 500 MG/5 ML VIAL ONE (20:41)
[2021-03-07 20:51] LABS: Absolute Lymphocytes (CBC) 1.9 K/uL (0.7-4.9); Basophils % 0.6 % (0-1.3); Hematocrit 33.7 % (36.0-45.0); Lymphocytes % 23.3 % (15.3-44.8); MPV 8.8 fL (7.6-11.3); RBC Red Blood Cell Count 3.36 M/uL (3.86-4.86)
--- NOTE | 2021-03-07 20:51 | EDPHYS ---
Physician Documentation [facility] Name: Mia Person Age: 65 yrs Sex: Female : 1955 Arrival Date: 03/07/2021 Time: 19:57 Bed 3 Private MD: ED Physician Raleigh Goss HPI: 03/07 20:04 This 65 yrs old Female presents to ER via Unassigned with complaints of Deformity Left jr8 Leg. 20:04 Onset: The symptoms/episode began/occurred acutely, today. Modifying factors: The jr8 symptoms are alleviated by nothing. the symptoms are aggravated by movement. Associated signs and symptoms: The patient has no apparent associated signs or symptoms. Severity of symptoms: At their worst the symptoms were moderate, in the emergency department the symptoms are unchanged. The patient has not experienced similar symptoms in the past. The patient has not recently seen a physician. This is a 65 y/o F patient that caught her leg in mud causing her to twist extremity. [place] immediate pop to extremity. Immediate deformity noticed by patient. EMS called that that time and transported patient in position of comfort. Fentanyl given SUB PRIOR with mild relief. Patient denies any other pain or trauma currently . Historical: - Allergies: 20:09 Clindamycin; lp1 20:09 Morphine; lp1 - PMHx: 20:09 Cancer, Breast; Depression; Diabetes - NIDDM; RLS; lp1 - PSHx: 20:09 section; Cholecystectomy; mastectomy-left; lp1 - Immunization history:: Adult Immunizations up to date, Client reports receiving the 2nd dose of the Covid vaccine. - Immunization history: Last tetanus immunization: unknown. - Social history:: Smoking status: unknown. ROS: 20:04 Eyes: Negative for injury, pain, redness, and discharge, ENT: Negative for injury, jr8 pain, and discharge, Neck: Negative for injury, pain, and swelling, Cardiovascular: Negative for chest pain, palpitations, and edema, Respiratory: Negative for shortness of breath, cough, wheezing, and pleuritic chest pain, Abdomen/GI: Negative for abdominal pain, nausea, vomiting, diarrhea, and constipation, Back: Negative for injury and pain, Neuro: Negative for headache, weakness, numbness, tingling, and seizure. 20:04 Skin: Negative for rash and discoloration 20:04 MS/extremity: Positive for decreased range of motion, deformity, ecchymosis, laceration, pain, swelling, tenderness, of the left leg. Exam: 20:46 Neck: Trachea midline, no thyromegaly or masses palpated, and no cervical jr8 lymphadenopathy. Supple, full range of motion without nuchal rigidity, or vertebral point tenderness. No Meningismus. Cardiovascular: Regular rate and rhythm with a normal S1 and S2. No gallops, murmurs, or rubs. Normal PMI, no JVD. No pulse deficits. Respiratory: Lungs have equal breath sounds bilaterally, clear to auscultation and percussion. No rales, rhonchi or wheezes noted. No increased work of breathing, no retractions or nasal flaring. Abdomen/GI: Soft, non-tender, with normal bowel sounds. No distension or tympany. No guarding or rebound. No evidence of tenderness throughout. Back: No spinal tenderness. No costovertebral tenderness. Full range of motion. Skin: Warm, dry with normal turgor. Normal color with no rashes, no lesions, and no evidence of cellulitis. Neuro: Awake and alert, GCS 15, oriented to person, place, time, and situation. Cranial nerves II-XII grossly intact. Motor strength 5/5 in all extremities. Sensory grossly intact. 20:46 Constitutional: The patient appears alert, awake, in obvious pain. 20:46 Musculoskeletal/extremity: Extremities: grossly normal except: noted in the left leg: Patient has obvious deformity to distal femur with two lacerations consistent with open femur fracture. 1+ DP pulse present with normal sensation and movement of the foot and toes. Remained of extremities unremarkable , Weight bearing: is unable to bear weight. Vital Signs: 19:55 BP 133 / 50; Pulse 108; Resp 20; Temp 97.6(O); Pulse Ox 98% on R/A; Weight 117.03 kg lp1 (R); Height 5 ft. 3 in. (160.02 cm); Pain 8/10; 20:36 BP 127 / 65; Pulse 106; Resp 14 S; Pulse Ox 98% on R/A; Pain 8/10; bb 21:00 BP 125 / 71; Pulse 95; Resp 12; Pulse Ox 97% on R/A; as6 21:10 Temp 96.0(TE); as6 19:55 Body Mass Index 45.70 (117.03 kg, 160.02 cm) lp1 [place] Coma Score: 19:55 Eye Response: spontaneous(4). Verbal Response: oriented(5). Motor Response: obeys lp1 commands(6). Total: 15. Trauma Score (Adult): 19:55 Eye Response: spontaneous(1); Verbal Response: oriented(1); Motor Response: obeys lp1 commands(2); Systolic BP: > 89 mm Hg(4); Respiratory Rate: 10 to 29 per min(4); Janet Score: 15; Trauma Score: 12 20:36 Eye Response: spontaneous(1); Verbal Response: oriented(1); Motor Response: obeys bb commands(2); Systolic BP: > 89 mm Hg(4); Respiratory Rate: 10 to 29 per min(4); Janet Score: 15; Trauma Score: 12 MDM: 20:01 Patient medically screened. jr8 20:46 Data reviewed: vital signs, nurses notes, lab test result(s), radiologic studies, plain jr8 films. Data interpreted: Pulse oximetry: on room air is 98 %. Interpretation: normal. Counseling: I had a detailed discussion with the patient and/or guardian regarding: the historical points, exam findings, and any diagnostic results supporting the discharge/admit diagnosis, lab results, radiology results, the need to transfer to another facility, [facility] does not immediately have the required specialist. ED course: Dr. Mcleod at [facility] accepted for further evaluation . 12 20:02 Order name: Basic Metabolic Panel; Complete Time: 22:25 jr8 03/07 20:02 Order name: CBC with Diff; Complete Time: 20:58 jr8 03/07 20:02 Order name: XRAY Femur LEFT; Complete Time: 22:25 jr8 03/07 20:02 Order name: Type And Screen; Complete Time: 22:25 jr8 12 20:04 Order name: COVID-19 SARS RT PCR (Document "Date of Onset" if Symptomatic) jr8 03/07 20:05 Order name: SARS-COV-2 RT PCR; Complete Time: 20:58 EDMS 03/07 20:02 Order name: Labs collected and sent; Complete Time: 20:30 jr8 Administered Medications: 20:00 Drug: fentaNYL (PF) 100 mcg Route: IVP; Site: right hand; as6 22:00 Follow up: Response: No adverse reaction; RASS: Alert and Calm (0) as6 20:16 Drug: Tetanus-Diphtheria Toxoid Adult 0.5 ml {Journeyman Press Operator: [email or web address]. Exp: as6 08/13/2022. Lot #: [id number]. } Route: IM; Site: right deltoid; 22:00 Follow up: Response: No adverse reaction as6 20:29 Drug: Ancef (cefazolin) 2 grams Route: IVPB; Infused Over: 30 mins; Site: right hand; as6 22:00 Follow up: Response: No adverse reaction; IV Status: Completed infusion; IV Intake: as6 100ml 20:47 Drug: Ketamine 40 mg Route: IVP; Site: right hand; as6 22:00 Follow up: Response: Adverse reaction, Physician notified as6 21:20 Drug: Zofran (Ondansetron) 8 mg Route: IVP; Site: right hand; as6 22:01 Follow up: Response: No adverse reaction as6 Disposition: 22:24 Co-signature as Attending Physician, Raleigh Goss MD. pkl Disposition Summary: 03/07/21 20:50 Transfer Ordered Transfer Location: [facility] jr8 Reason: Higher level of care jr8 Condition: Fair jr8 Problem: new jr8 Symptoms: have improved jr8 Accepting Physician: Dr. Mcleod(03/07/21 22:00) as6 Diagnosis - Open Distal Left Femur Fracture jr8 Forms: - Medication Reconciliation Form jr8 - SBAR form jr8 Signatures: Dispatcher [employer] EDRaleigh Heaton MD MD pkl Rachel Guzman RN RN lp1 Philip Lundberg PA PA jr8 Greyson Danielle RN RN as6 Corrections: (The following items were deleted from the chart) 22:00 20:50 Dr. Mcleod jr8 as6
--- NOTE | 2021-03-07 20:51 | ER ---
Nurse's Notes [facility] Name: Mia Person Age: 65 yrs Sex: Female : 1955 Arrival Date: 03/07/2021 Time: 19:57 Bed 3 Private MD: Diagnosis: Open Distal Left Femur Fracture Presentation: 03/07 19:53 Chief complaint: EMS states: Called for patient for fall after slipping in mud while at lp1 work, reports hearing pop in left upper leg; Per EMS, laceration to left lateral upper leg with deformity and shortening of leg; Denies any other injuries. Coronavirus screen: At this time, the client does not indicate any symptoms associated with coronavirus-19. Ebola Screen: No symptoms or risks identified at this time. 19:53 Method Of Arrival: EMS: [facility] lp1 19:55 Initial Sepsis Screen: Does the patient meet any 2 criteria? No. Patient's initial lp1 sepsis screen is negative. Does the patient have a suspected source of infection? No. Patient's initial sepsis screen is negative. Risk Assessment: Do you want to hurt yourself or someone else? Patient reports no desire to harm self or others. Onset of symptoms was March 07, 2021. 19:55 Acuity: NICOLLE 2 lp1 20:00 Care prior to arrival: Medication(s) given: Fentanyl 100 mcg IV IV initiated. 22 GA, in lp1 the left hand. 21:57 Mechanism of Injury: Fall. Trauma event details: Injury occurred in the county [place] [address] Trauma Activation: Alert Physician: ED Physician; Name: philip; Notified At: 19:53; Arrived At: 19:53 Physician: General Surgeon; Name: ; Notified At: 19:53; Arrived At: Physician: Radiology; Name: carlos; Notified At: 19:53; Arrived At: 19:53 Physician: Respiratory; Name: ; Notified At: 19:53; Arrived At: Physician: Lab; Name: ; Notified At: 19:53; Arrived At: Historical: - Allergies: 20:09 Clindamycin; lp1 20:09 Morphine; lp1 - PMHx: 20:09 Cancer, Breast; Depression; Diabetes - NIDDM; RLS; lp1 - PSHx: 20:09 section; Cholecystectomy; mastectomy-left; lp1 - Immunization history:: Adult Immunizations up to date, Client reports receiving the 2nd dose of the Covid vaccine. - Immunization history: Last tetanus immunization: unknown. - Social history:: Smoking status: unknown. Screenin:09 Abuse screen: Denies threats or abuse. Denies injuries from another. Nutritional lp1 screening: No deficits noted. Tuberculosis screening: No symptoms or risk factors identified. Fall Risk Total Almaraz Fall Scale indicates High Risk Score (45 or more points). Fall prevention measures have been instituted. Side Rails Up X 2 As available patient and family educated on Fall Prevention Program and Strategies. Primary Survey: 20:00 NO uncontrolled hemorrhage observed. A: Airway: patent. Breathing/Chest: Respiratory as6 pattern: regular, Respiratory effort: spontaneous. Circulation: Pulses: palpable left dorsalis pedis artery. Disability Alert. Exposure/Environment: All clothing and personal items were removed. Reassessment Airway Airway Patent Breathing/Chest Respiratory pattern Regular Respiratory effort Spontaneous Circulation Pulses Palpable Disability Alert. Assessment: 20:33 General: Appears uncomfortable, Behavior is crying. Pain: Complains of pain in left as6 leg. Derm: Wound noted Wound is laceration. Musculoskeletal: shortening to LLE. 20:49 Cardiovascular: Pulses are palpable in left dorsalis pedis artery diminished. as6 21:10 General: Behavior is crying. GI: Pt is actively vomiting undigested food. as6 Vital Signs: 19:55 BP 133 / 50; Pulse 108; Resp 20; Temp 97.6(O); Pulse Ox 98% on R/A; Weight 117.03 kg lp1 (R); Height 5 ft. 3 in. (160.02 cm); Pain 8/10; 20:36 BP 127 / 65; Pulse 106; Resp 14 S; Pulse Ox 98% on R/A; Pain 8/10; bb 21:00 BP 125 / 71; Pulse 95; Resp 12; Pulse Ox 97% on R/A; as6 21:10 Temp 96.0(TE); as6 19:55 Body Mass Index 45.70 (117.03 kg, 160.02 cm) lp1 [place] Coma Score: 19:55 Eye Response: spontaneous(4). Verbal Response: oriented(5). Motor Response: obeys lp1 commands(6). Total: 15. Trauma Score (Adult): 19:55 Eye Response: spontaneous(1); Verbal Response: oriented(1); Motor Response: obeys lp1 commands(2); Systolic BP: > 89 mm Hg(4); Respiratory Rate: 10 to 29 per min(4); [place] Score: 15; Trauma Score: 12 20:36 Eye Response: spontaneous(1); Verbal Response: oriented(1); Motor Response: obeys bb commands(2); Systolic BP: > 89 mm Hg(4); Respiratory Rate: 10 to 29 per min(4); [place] Score: 15; Trauma Score: 12 ED Course: 19:57 Patient arrived in ED. mw2 20:00 Patient has correct armband on for positive identification. Bed in low position. Call lp1 light in reach. Side rails up X2. office chair assembler on. Pulse ox on. NIBP on. 20:00 Thermoregulation: warm blanket given to patient. lp1 20:00 Patient maintains SpO2 saturation greater than 95% on room air. lp1 20:01 Philip Lundberg PA is PHCP. jr8 20:01 Raleigh Goss MD is Attending Physician. jr8 20:06 Greyson Danielle, IONA is Primary Nurse. as6 20:08 Triage completed. lp1 20:08 Arm band placed on. lp1 20:10 initiated a transfer with Nina Rashid with [facility]. mw2 20:20 administrative approval given by Nina Rashid/patient has been accepted to [address] to the ER/ Dr. Mcleod accepted the patient in transfer/ report to be called to [phone]. 20:43 XRAY Femur LEFT In Process Unspecified. EDMS 21:00 Warm blanket given. placed on bear hugger. as6 21:55 No provider procedures requiring assistance completed. Patient transferred, IV remains as6 in place. Administered Medications: 20:00 Drug: fentaNYL (PF) 100 mcg Route: IVP; Site: right hand; as6 22:00 Follow up: Response: No adverse reaction; RASS: Alert and Calm (0) as6 20:16 Drug: Tetanus-Diphtheria Toxoid Adult 0.5 ml {Rn Hyperbaric: doo. Exp: as6 08/13/2022. Lot #: [id number]. } Route: IM; Site: right deltoid; 22:00 Follow up: Response: No adverse reaction as6 20:29 Drug: Ancef (cefazolin) 2 grams Route: IVPB; Infused Over: 30 mins; Site: right hand; as6 22:00 Follow up: Response: No adverse reaction; IV Status: Completed infusion; IV Intake: as6 100ml 20:47 Drug: Ketamine 40 mg Route: IVP; Site: right hand; as6 22:00 Follow up: Response: Adverse reaction, Physician notified as6 21:20 Drug: Zofran (Ondansetron) 8 mg Route: IVP; Site: right hand; as6 22:01 Follow up: Response: No adverse reaction as6 Intake: 21:57 PO: 0ml; Total: 0ml. as6 22:00 IV: 100ml; Total: 100ml. as6 Output: 21:57 Gastric: 50ml (Emesis); EBL: 10ml; Total: 60ml. as6 Outcome: 20:50 ER care complete, transfer ordered by . jrEsli 21:56 Transferred by ground EMS to [facility], Transfer form completed. as6 21:56 Condition: stable 21:57 Patient's length of stay was not longer than 2 hours. as6 22:00 Patient left the ED. as6 Signatures: Dispatcher MedHost EDMS Mckayla Wilkinson RN RN bb Pena, Laura, RN RN lp1 Philip Lundberg PA PA jr8 Lesia Kc mw2 Greyson Danielle RN RN as6
[2021-03-07 20:58] LABS: Potassium 3.8 mmol/L (3.5-5.1)
--- NOTE | 2021-03-07 21:04 | RAD REPORT ---
EXAM DESCRIPTION: RAD - Femur Left - 03/07/2021 8:43 pm CLINICAL HISTORY: open fracture COMPARISON: No comparisons FINDINGS: Comminuted distal femoral metadiaphyseal fracture with overriding, lateral angulation, and large displaced fragment. IMPRESSION: Comminuted and displaced left distal femoral metadiaphyseal fracture with angulation and overriding.
[2021-03-07] MEDS ORDERED: ONDANSETRON 4 MG/2 ML VIAL ONE (21:12)
[2021-03-07] MEDS ORDERED: HYDROMORPHONE HCL 1 MG/ML INJ ONE (21:33)
[2021-03-07 22:17] VITALS: BP 125/71; O2SAT 97
[2021-03-07 22:18] VITALS: TEMP 96
== END 2021-03-07 22:00 | disposition short-term general hospital (02) ==
LOC: ER 19:56
DX: S72.402B Unspecified fracture of lower end of left femur, initial encounter for open fracture type I or II (principal); X50.1XXA Overexertion from prolonged static or awkward postures, initial encounter; Z23 Encounter for immunization; Z20.822 Contact with and (suspected) exposure to COVID-19; Z88.3 Allergy status to other anti-infective agents; Z88.5 Allergy status to narcotic agent; Z85.3 Personal history of malignant neoplasm of breast; Z90.12 Acquired absence of left breast and nipple
CPT/HCPCS: 96365; 85025; 80048; 36415; 86900; 86850; 86901; 73552; 90471; 90714; 96375; 99285; 96366; U0003; J3010; J1170; J2405; J0690

== ENCOUNTER 2021-06-10 18:13 | Emergency (ER) | payer BC, OTHER ==
--- OUTSIDE RECORDS SUMMARY | 2021-06-10 18:15 | XMS REPORT | Continuity of Care Document ---
:1955 Author Organization [facility] t Address [facility]3 [address] [place] [address] Care Team Providers Name Role Phone Rissa VERA Attending Clinician Unavailable DEANNA Attending Clinician Unavailable Lisa YUAN Attending Clinician Unavailable Rissa VERA Attending Clinician Unavailable GABRIELA GOMES Attending Clinician Unavailable MIHAELA, K.H. Attending Clinician Unavailable Mihaela PALMER, K.H. Attending Clinician Doctor Unassigned, Name Attending Clinician Unavailable Lizzette PLASCENCIA Attending Clinician Unavailable Lisa YUAN Admitting Clinician Unavailable DIDI ALEJANDRE Admitting Clinician Unavailable Payers Payer Name Policy Type Policy Number Effective Date Expiration Date S tasha GENERIC OTHER [id number] [id number] 2021 00:00:00 00:00:00 COMMERCIAL [id number] 2019 NON-CONTRACT 00:00:00 GENERIC AGENCY GENERIC [id number] 2019 00:00:00 Problems Condition Condition Condition Status Onset Resolution Last Treating Co mments Source Name Details Category Date Date Treatment Clinician Date No known No known Disease Unive rs active active ity of problems problems [facility] Allergies, Adverse Reactions, Alerts Allergy Allergy Status Severity Reaction(s) Onset Inactive Treating Comm ents Source Name Type Date Date Clinician Morphine Propensi Active Other - See Hypotens i Univers ty to comments 07-22 on ity of adverse 00:00: [place] reaction [address] [place] [address] MORPHINE DRUG Active Other-Cmnt Univ ers INGREDI 07-22 ity of 00:00: [address] NO KNOWN Drug Active Univers ALLERGIE Class ity of S [facility] Social History Social Habit Start Date Stop Date Quantity Comments Source History of Cigarette Smoker Universi ty of tobacco use [facility] Exposure to Not sure University of SARS-CoV-2 [place] Medical (event) Branch Tobacco use and 2020-07-22 2020-07-22 Never used Universit y of exposure 00:00:00 00:00:00 [facility] Sex [birth year] Universit y of 00:00:00 00:00:00 [facility] Smoking Status Start Date Stop Date Source Unknown if ever smoked Universit y of [facility] Current every day smoker 2020-07-22 00:00:00 Uni versity of [facility] Medications Ordered Filled Start Stop Current Ordering Indication Dosage Frequency Signature Comments Components Source Medication Medication Date Date Medication? Clinician (SIG) Name Name gabapentin Yes 800mg Take 800 Un yazmin 800 mg 4-22 mg by ity of tablet 14:49: mouth [address] [place] [address] (three) Medical times Branch daily. rOPINIRole Yes .25mg Take 0.25 U nivers 0.25 mg 4-22 mg by ity of tablet 14:49: mouth [address] [place] [address] (two) Medical times Branch daily. hydrOXYzine Yes 25mg Take 25 mg Univers 25 mg 4-22 by mouth ity of tablet 14:49: at [place] [address] bedtime. Medical 1-2 tabs Branch levothyroxi Yes 50ug Take 50 Uni vers ne 50 mcg 4-22 mcg by ity of tablet 14:49: mouth [place] [address] every Medical morning. Branch spironolact Yes 25mg Take 25 mg Univers one 25 mg 4-22 by mouth ity of tablet 14:49: daily. [place] [address] Medical Branch glimepiride Yes 4mg Take 4 mg U nivers 4 mg tablet 4-22 by mouth ity of 14:49: daily with [place] [address] breakfast. Medical Branch pioglitazon Yes 15mg Take 15 mg Univers e 15 mg 4-22 by mouth ity of tablet 14:49: daily. [place] [address] Medical Branch gabapentin Yes 800mg Take 800 Un yazmin 800 mg 4-22 mg by ity of tablet 14:49: mouth [address] [place] [address] (three) Medical times Branch daily. rOPINIRole Yes .25mg Take 0.25 U nivers 0.25 mg 4-22 mg by ity of tablet 14:49: mouth [address] [place] [address] (two) Medical times Branch daily. hydrOXYzine Yes 25mg Take 25 mg Univers 25 mg 4-22 by mouth ity of tablet 14:49: at [place] [address] bedtime. Medical 1-2 tabs Branch levothyroxi Yes 50ug Take 50 Uni vers ne 50 mcg 4-22 mcg by ity of tablet 14:49: mouth [place] [address] every Medical morning. Branch spironolact Yes 25mg Take 25 mg Univers one 25 mg 4-22 by mouth ity of tablet 14:49: daily. [address] glimepiride Yes 4mg Take 4 mg U nivers 4 mg tablet 4-22 by mouth ity of 14:49: daily with [place] [address] breakfast. Medical Branch pioglitazon Yes 15mg Take 15 mg Univers e 15 mg 4-22 by mouth ity of tablet 14:49: daily. [address] Immunizations Ordered Filled Immunization Date Status Comments [facility] e Immunization Name Name SARS-COV-2 COVID-19 2020-07-08 Completed Unive rsity of PFIZER VACCINE 00:00:00 [facility] SARS-COV-2 COVID-19 2020-07-08 Completed Unive rsity of PFIZER VACCINE 00:00:00 [facility] SARS-COV-2 COVID-19 2020-07-08 Completed Unive rsity of PFIZER VACCINE 00:00:00 [facility] SARS-COV-2 COVID-19 2020-06-17 Completed Unive rsity of PFIZER VACCINE 00:00:00 [facility] SARS-COV-2 COVID-19 2020-06-17 Completed Unive rsity of PFIZER VACCINE 00:00:00 [facility] SARS-COV-2 COVID-19 2020-06-17 Completed Unive rsity of PFIZER VACCINE 00:00:00 [facility] Vital Signs Vital Name Observation Time Observation Value Comments Source Systolic blood 2020-07-22 14:35:00 130 mm[Hg] Univer sity of pressure [facility] Diastolic blood 2020-07-22 14:35:00 60 mm[Hg] Unive rsity of pressure [facility] Heart rate 2020-07-22 14:35:00 99 /min [facility] Respiratory rate 2020-07-22 14:35:00 20 /min Univ ersity of [facility] Body height 2020-07-22 14:35:00 160 cm [facility] Body weight 2020-07-22 14:35:00 99.519 kg [facility] BMI 2020-07-22 14:35:00 38.86 kg/m2 [facility] Oxygen saturation in 2020-07-22 14:35:00 96 /min [facility] Arterial blood by [facility] Pulse oximetry Branch Procedures Procedure Date / Time Performed Performing Clinician [facility] e CONSENT/REFUSAL FOR 2020-07-22 13:39:40 Doctor Unassigned, No Un [facility] DIAGNOSIS AND Name [facility] Branch TREATMENT Encounters Start End Encounter Admission Attending Care Care Encounter Source Date/Time Date/Time Type Type Clinicians Facility Department ID 2021-06-07 [facility] [id number] [place] 01:06:03 [facility] 2021-05-12 [facility] [id number] [place] 07:53:59 [facility] 2021-04-25 [facility] [id number] [place] 10:29:33 [facility] 2021-03-31 2021-04-[address] [facility] [id number] [facility] 17:33:00 21:08:00 EDDIE 2021-04-05 2021-04-05 Outpatient [facility] [id number] [facility] 10:00:00 23:59:00 [facility] 2021-03-07 2021-03-[address] [facility] [id number] [facility] 22:49:00 17:32:00 JED 2020-09-02 2020-09-02 Outpatient Breanna CHAIREZ [facility] [id number] Univers 09:30:00 09:30:00 SENDIL [id number] ity [facility] 2020-09-02 2020-09-02 Outpatient Breanna CHAIREZ [facility] [id number] Univers 09:30:00 09:30:00 SENDIL ity [facility] 2020-07-29 2020-07-29 Outpatient R MIHAELA [facility] [id number] Univers 15:00:00 15:00:00 SENDIL [id number] ity [facility] 2020-07-29 2020-07-29 [facility] [id number] Univers 15:00:00 15:00:00 SENDIL ity [facility] 2020-07-22 2020-07-22 Office Mihaela [facility] [id number] Univers 09:11:10 10:16:22 Visit Sendil Kenia Sesay [id number] ity [facility] [id number] [phone] [place] [address] 2020-07-22 2020-07-22 Outpatient R MIHAELA [facility] [id number] Univers 09:30:00 09:30:00 SENDIL ity [facility] 2020-07-22 2020-07-22 Orders Doctor HENNA [id number] Univers 00:00:00 00:00:00 Only Unassigned, MAINOR [id number] ity of [place] [facility] [id number] [place] [id number] [address] 2020-07-08 2020-07-08 Outpatient Breanna PLASCENCIA [facility] [id number] Univers 08:50:00 08:13:00 [place] ity [facility] 2020-06-24 2020-06-24 Outpatient Breanna CHAIREZ [facility] [id number] Univers 11:30:00 11:30:00 SENDIL ity [facility] 2020-06-17 2020-06-17 Outpatient Breanna PLASCENCIA [facility] [id number] Univers 08:50:00 08:54:57 [place] [facility] Results Test Description Test Time Test Comments Results Result Comments Source SARS-COV2/RT-PCR ([facility]) 2019-10-08 11:29:00 Test Item Value Reference Range Interpretation Comme nts SARS-COV2/RT-PCR (test code = [id number]) Not Detected Not Detected, N egative SARS-COV-2 PERFORMING LAB (test code = [facility] [id number]) Negative results do not preclude SARS-CoV-2 infection [...] of the Act.Fact Sheet for Healthcare Pro viders:https://www.World Reviewer/Documents/Xpert%20Xpress%20SARS%20CoV-2/Fact%20Sh eets/3023802%73JFXP-KYP-5%20HEALTHCARE%20PROVIDERS%20FACT%20SHEET.pdfFact Sheet for Healthcare Patients:https://www.Photetica/Documents/Xpert%20Xpress%20SARS%20CoV-2/Fact%20Sheets/3023801%20SARS-COV -2%20PATIENT%20FACT%20SHEET.pdfPerforming Laboratory:[facility] [place] [address]
[2021-06-10 23:06] LABS: Absolute Lymphocytes (CBC) 1.4 K/uL (0.7-4.9); Hematocrit 32.2 % (36.0-45.0); Lymphocytes % 14.6 % (15.3-44.8); MPV 8.2 fL (7.6-11.3); RBC Red Blood Cell Count 3.44 M/uL (3.86-4.86)
[2021-06-10] MEDS ORDERED: GABAPENTIN 400 MG CAP ONE (23:17)
[2021-06-10 23:24] LABS: ALT/SGPT 18 U/L (12-78); AST/SGOT 13 U/L (15-37); Albumin 2.3 g/dL (3.4-5.0); Alkaline Phosphatase 145 U/L (45-117); BUN Blood Urea Nitrogen 18 mg/dL (7-18); Bicarbonate 30 mmol/L (21-32); Bilirubin Total 0.2 mg/dL (0.2-1.0); Glucose Level 161 mg/dL (74-106); Lipase 36 U/L (73-393); Potassium 4.8 mmol/L (3.5-5.1); Protein, Total 6.4 g/dL (6.4-8.2); Sodium Level 138 mmol/L (136-145)
[2021-06-10 23:31] LABS: Bilirubin Direct < 0.1 mg/dL (0-0.2)
--- NOTE | 2021-06-11 01:19 | EDPHYS ---
Physician Documentation [facility] Name: Mia Person Age: 65 yrs Sex: Female : 1955 Arrival Date: 06/10/2021 Time: 18:17 Bed 19 Private MD: ED Physician Deandre Curry HPI: 06/10 21:39 This 65 yrs old Female presents to ER via Wheelchair with complaints of Leg Pain W/ jmm Poss Infection. 21:39 The patient presents with swelling. Onset: The symptoms/episode began/occurred 2 jmm month(s) ago. This is a 65-year-old female with history of cancer, depression, diabetes mellitus, restless leg syndrome the presents emerged department with complaints of left leg wound drainage. Patient fractured her femur in March, after the. The patient developed an infection approximately a week later. The area was surgically debrided with a open wound left to drain. Patient and her family are concerned due to ongoing drainage. Patient is not currently on antibiotics. Denies fever or chills. Denies increased pain to the leg or knee.. Historical: - Allergies: 18:51 Clindamycin; ap3 18:51 Morphine; ap3 - Home Meds: 21:08 gabapentin Oral [Active]; hydroxyzine HCl Oral [Active]; hydrocodone-acetaminophen vc1 2.5-500 mg Oral tab [Active]; glimepiride 2 mg Oral tab [Active]; pioglitazone 15 mg oral tab [Active]; - PMHx: 18:51 Cancer, Breast; Depression; Diabetes - NIDDM; RLS; ap3 - PSHx: 18:51 section; Cholecystectomy; mastectomy-left; broken femur repair; ap3 - Immunization history:: Client reports receiving the 2nd dose of the Covid vaccine, and booster Pneumococcal vaccine is up to date, Flu vaccine is up to date. - Social history:: Smoking status: Patient reports the use of cigarette tobacco products, smokes one pack cigarettes per day. ROS: 21:39 Constitutional: Negative for fever, chills, and weight loss, Cardiovascular: Negative jmm for chest pain, palpitations, and edema, Respiratory: Negative for shortness of breath, cough, wheezing, and pleuritic chest pain. 21:39 MS/extremity: Positive for swelling. 21:39 All other systems are negative. Exam: 21:39 Constitutional: This is a well developed, well nourished patient who is awake, alert, jmm and in no acute distress. Head/Face: atraumatic. Eyes: EOMI, no conjunctival erythema appreciated ENT: Moist Mucus Membranes Neck: Trachea midline, Supple Chest/axilla: Normal chest wall appearance and motion. Cardiovascular: Regular rate and rhythm. No edema appreciated Respiratory: Normal respirations, no respiratory distress appreciated Abdomen/GI: Non distended, soft Back: Normal ROM 21:39 Skin: Open wound noted to the left distal thigh, laterally, no surrounding erythema or induration. Drainage is expressed when pressing around the wound. Patient does have some mild pain upon expression.. 21:39 Neuro: Orientation: is normal, Mentation: is normal, Memory: is normal. Vital Signs: 18:47 BP 109 / 66; Pulse 82; Resp 16; Temp 97.9; Pulse Ox 99% ; Weight 107.95 kg; Height 5 ap3 ft. 3 in. (160.02 cm); Pain 7/10; 23:00 BP 112 / 64; Pulse 80; Resp 16; Pulse Ox 98% ; vc1 03 01:00 BP 110 / 64; Pulse 88; Resp 17; Pulse Ox 99% on R/A; vc1 06/10 18:47 Body Mass Index 42.16 (107.95 kg, 160.02 cm) ap3 MDM: 03 21:39 Patient medically screened. [facility] 06/11 01:17 Data reviewed: vital signs, nurses notes. [facility] 01:17 Counseling: I had a detailed discussion with the patient and/or guardian regarding: the [facility] historical points, exam findings, and any diagnostic results supporting the discharge/admit diagnosis, lab results, the need for outpatient follow up, to return to the emergency department if symptoms worsen or persist or if there are any questions or concerns that arise at home. ED course: Labs were unremarkable as far as concerns for sepsis. Physical exam did show concerns for wound infection. The area was irrigated copiously with Betadine and normal saline. Patient begun on a course of doxycycline and advised follow-up with wound care. Patient otherwise given strict return precautions. Patient understood agrees plan of care. 06/10 21:42 Order name: Basic Metabolic Panel [facility] 06/10 21:42 Order name: CBC with Diff; Complete Time: 23:24 [facility] 06/10 21:42 Order name: Hepatic Function; Complete Time: 23:32 [facility] 06/10 21:42 Order name: Lipase; Complete Time: 23:32 [facility] 06/10 21:42 Order name: Blood Culture Adult (2) [facility] 06/10 21:42 Order name: Procalcitonin; Complete Time: 23:53 [facility] 06/10 21:42 Order name: IV Saline Lock; Complete Time: 22:44 [facility] 06/10 21:42 Order name: Labs collected and sent; Complete Time: 22:44 [facility] 06/10 21:42 Order name: Lactate; Complete Time: 23:30 [facility] 06/10 21:42 Order name: Basic Metabolic Panel; Complete Time: 23:32 [facility] 06/10 21:45 Order name: US Extrmty Nonvasular Limited [facility] Administered Medications: 06/10 23:29 Drug: Gabapentin 800 mg Route: PO; vc1 06/11 02:31 Follow up: Response: No adverse reaction; No adverse reaction; helped with restless legsvc1 01:34 Drug: Doxycycline 100 mg Route: PO; vc1 01:45 Follow up: Response: No adverse reaction vc1 Disposition: 02:22 Co-signature as Attending Physician, Deandre Curry MD I agree with the assessment and rn plan of care. Attestation: The patient's history, exam findings, diagnostics, and a summary of any interventions or procedures was reviewed in detail with Blaise SILVA. Disposition Summary: 06/11/21 01:19 Discharge Ordered Location: Home [facility] Condition: Stable [facility] Diagnosis - Cutaneous Abscess of the Left Leg [facility] Followup: [facility] - With: Private Physician - When: 2 - 3 days - Reason: Recheck today's complaints, Continuance of care, Re-evaluation by your physician Discharge Instructions: - Discharge Summary Sheet [facility] - Incision and Drainage, Care After [facility] Forms: - Medication Reconciliation Form [facility] - Thank You Letter [facility] - Antibiotic Education [facility] - Prescription Opioid Use [facility] Prescriptions: - Doxycycline Hyclate 100 mg Oral Tablet - take 1 tablet by ORAL route every 12 hours; 20 tablet; Refills: 0, Product [facility] Selection Permitted Signatures: Dispatcher [employer] Blaise Santizo PA PA Deandre Merrill MD MD rn Prokisch, Amanda, RN RN ap3 Kay, Thais, RN RN vc1
--- NOTE | 2021-06-11 01:19 | ER ---
Nurse's Notes [facility] Name: Mia Person Age: 65 yrs Sex: Female : 1955 Arrival Date: 06/10/2021 Time: 18:17 Bed 19 Private MD: Diagnosis: Cutaneous Abscess of the Left Leg Presentation: 06/10 18:47 Chief complaint: Patient states: she broke her left femur in March of 2021. She ap3 reports getting an infection soon after in the sx site and having sx to clean the infection from the surgical site. Patient states she was transferred to a [facility] where the dressing of the wound was not changed for a month, and presents to the ED today stating her leg is infected in the same location. She attempted to call her provider, but was instructed to come to the ED for evaluation. Coronavirus screen: At this time, the client does not indicate any symptoms associated with coronavirus-19. Ebola Screen: No symptoms or risks identified at this time. Initial Sepsis Screen:. Initial Sepsis Screen: Does the patient meet any 2 criteria? No. Patient's initial sepsis screen is negative. Initial Sepsis Screen: Does the patient have a suspected source of infection? Yes: Skin breakdown/wound. Risk Assessment: Do you want to hurt yourself or someone else? Patient reports no desire to harm self or others. Onset of symptoms was March 2021. 18:47 Method Of Arrival: Wheelchair ap3 18:47 Acuity: NICOLLE 3 ap3 Triage Assessment: 18:52 General: Appears in no apparent distress. Behavior is calm, cooperative, appropriate ap3 for age. Pain: Complains of pain in left leg. Neuro: Level of Consciousness is awake, alert, obeys commands, Oriented to person, place, time, situation, Appropriate for age Gait is unsteady. Respiratory: Airway is patent Respiratory effort is even, unlabored. Derm: Reports 2 open areas of infection on her right upper leg. Historical: - Allergies: 18:51 Clindamycin; ap3 18:51 Morphine; ap3 - Home Meds: 21:08 gabapentin Oral [Active]; hydroxyzine HCl Oral [Active]; hydrocodone-acetaminophen vc1 2.5-500 mg Oral tab [Active]; glimepiride 2 mg Oral tab [Active]; pioglitazone 15 mg oral tab [Active]; - PMHx: 18:51 Cancer, Breast; Depression; Diabetes - NIDDM; RLS; ap3 - PSHx: 18:51 section; Cholecystectomy; mastectomy-left; broken femur repair; ap3 - Immunization history:: Client reports receiving the 2nd dose of the Covid vaccine, and booster Pneumococcal vaccine is up to date, Flu vaccine is up to date. - Social history:: Smoking status: Patient reports the use of cigarette tobacco products, smokes one pack cigarettes per day. Screenin:53 Abuse screen: Denies threats or abuse. Nutritional screening: No deficits noted. ap3 Tuberculosis screening: No symptoms or risk factors identified. 21:07 Fall Risk Fall in past 12 months (25 points). Secondary diagnosis (15 points) impaired vc1 mobility, IV access (20 points). Ambulatory Aid- None/Bed Rest/Nurse Assist (0 pts). Gait- Impaired (20 pts.). Mental Status- Oriented to own ability (0 pts). Total Almaraz Fall Scale indicates High Risk Score (45 or more points). Assessment: 20:59 General: Appears uncomfortable, ill, obese, Behavior is calm, cooperative, appropriate vc1 for age. Pain: Complains of pain in lateral aspect of left thigh Pain does not radiate. Pain currently is 8 out of 10 on a pain scale. at worst was 10 out of 10 on a pain scale. Quality of pain is described as burning, sharp, Aggravated by increased activity, repositioning, weight bearing. Neuro: Level of Consciousness is awake, alert, obeys commands, Oriented to person, place, time, situation, Appropriate for age. Cardiovascular: Capillary refill < 3 seconds Patient's skin is warm and dry. Respiratory: Airway is patent Respiratory effort is even, unlabored, Respiratory pattern is regular, symmetrical. Derm: Wound noted lateral aspect of left thigh Wound is red, with purulent drainage, and a foul odor. Injury Description: Surgical site incision. 22:00 Reassessment: Patient and/or family updated on plan of care and expected duration. Pain vc1 level reassessed. Patient is alert, oriented x 3, equal unlabored respirations, skin warm/dry/pink. 23:00 Reassessment: Patient and/or family updated on plan of care and expected duration. Pain vc1 level reassessed. Patient is alert, oriented x 3, equal unlabored respirations, skin warm/dry/pink. 06/11 00:00 Reassessment: Patient and/or family updated on plan of care and expected duration. Pain vc1 level reassessed. Patient is alert, oriented x 3, equal unlabored respirations, skin warm/dry/pink. 01:00 Reassessment: Patient and/or family updated on plan of care and expected duration. Pain vc1 level reassessed. Patient is alert, oriented x 3, equal unlabored respirations, skin warm/dry/pink. Patient states feeling better. Patient states symptoms have improved. 01:00 Reassessment: Patient states her leg feels "so much better" she is able to move it more vc1 than she was on arrival. Derm: Reports decreased pain. Vital Signs: 06/10 18:47 BP 109 / 66; Pulse 82; Resp 16; Temp 97.9; Pulse Ox 99% ; Weight 107.95 kg; Height 5 ap3 ft. 3 in. (160.02 cm); Pain 7/10; 23:00 BP 112 / 64; Pulse 80; Resp 16; Pulse Ox 98% ; vc1 06/11 01:00 BP 110 / 64; Pulse 88; Resp 17; Pulse Ox 99% on R/A; vc1 06/10 18:47 Body Mass Index 42.16 (107.95 kg, 160.02 cm) ap3 ED Course: 06/10 18:17 Patient arrived in ED. ds1 18:51 Triage completed. ap3 18:53 Arm band placed on left wrist. ap3 20:12 Blaise Zamarripa PA is PHCP. jm 20:12 Deandre Curry MD is Attending Physician. jm 20:46 Thais Villanueva, IONA is Primary Nurse. vc1 20:58 Patient has correct armband on for positive identification. Adult w/ patient. No vc1 stick/IV sleeve placed on left arm. 21:45 Missed attempt(s): 22 gauge in right antecubital area. Bleeding controlled, band aid vc1 applied, catheter tip intact. 22:00 Missed attempt(s): 24 gauge in right forearm. Bleeding controlled, band aid applied, vc1 catheter tip intact. 22:24 US Extrmty Nonvasular Limited In Process Unspecified. EDMS 22:44 Basic Metabolic Panel Sent. st1 22:44 CBC with Diff Sent. st1 22:44 Hepatic Function Sent. st1 22:44 Lipase Sent. st1 22:44 Blood Culture Adult (2) Sent. st1 22:45 Procalcitonin Sent. st1 22:45 Basic Metabolic Panel Sent. st1 22:45 Lactate Sent. st1 22:45 Inserted saline lock: 20 gauge in right antecubital area, using aseptic technique. st1 06/11 00:50 Assist provider with I \\T\\ D: of an abscess on left lateral thigh Performed by Blaise SILVA Dressing with 4X4s, tape Patient tolerated well. 01:45 IV discontinued. vc1 Administered Medications: 06/10 23:29 Drug: Gabapentin 800 mg Route: PO; vc1 06/11 02:31 Follow up: Response: No adverse reaction; No adverse reaction; helped with restless legsvc1 01:34 Drug: Doxycycline 100 mg Route: PO; vc1 01:45 Follow up: Response: No adverse reaction vc1 Outcome: 01:19 Discharge ordered by MD. smiley 01:45 Discharged to home via wheelchair. 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 medication usage, Demonstrated understanding of instructions, follow-up care, medications, Prescriptions given X 1. 01:47 Patient left the ED. vc1 Signatures: Dispatcher [employer] EDMS Blaise Zamarripa PA PA jmm San[place], Demi ds1 Prokisch, Amanda, RN RN ap3 Dorothy Hernandez RN RN st1 Thais Villanueva RN RN vc1
[2021-06-11] MEDS ORDERED: DOXYCYCLINE 100 MG CAP PO ONE (01:28)
[2021-06-11 02:34] VITALS: BP 109/66; TEMP 97.9; O2SAT 99
--- NOTE | 2021-06-11 10:26 | RAD REPORT ---
EXAM DESCRIPTION: US - Extremity Nonvascular Limited - 06/10/2021 10:24 pm CLINICAL HISTORY: PAIN COMPARISON: No comparisons TECHNIQUE: Real-time sonographic evaluation of the area of interest was performed. FINDINGS: Inflamed and edematous tissue is seen in the interest left-sided above the level of the le ft knee. Small subcutaneous abscesses present in this region measuring 9 x 8 mm.
== END 2021-06-11 01:47 | disposition home or self-care (01) ==
LOC: ER 18:13
DX: L02.416 Cutaneous abscess of left lower limb (principal); E11.9 Type 2 diabetes mellitus without complications; F17.210 Nicotine dependence, cigarettes, uncomplicated; F32.A Depression, unspecified; Z85.3 Personal history of malignant neoplasm of breast; Z88.3 Allergy status to other anti-infective agents; Z88.5 Allergy status to narcotic agent; Z90.12 Acquired absence of left breast and nipple
CPT/HCPCS: 36415; 76882; 80048; 80076; 83605; 83690; 84145; 85025; 87040; 99284

== ENCOUNTER 2021-10-05 10:12 | Emergency (ER) | payer OTHER, SELFPAY ==
[2021-10-05] MEDS ORDERED: NA CHLORIDE 0.9% 100 ML ONE (10:49)
[2021-10-05] MEDS ORDERED: ONDANSETRON 4 MG/2 ML VIAL ONE (10:49)
[2021-10-05] MEDS ORDERED: MEPERIDINE HCL 25 MG/ML SYR ONE ×3 (10:49→19:15)
[2021-10-05] MEDS ORDERED: CEFEPIME 1 GM/VIAL ONE (10:50)
[2021-10-05 11:17] LABS: Absolute Lymphocytes (CBC) 1.4 K/uL (0.7-4.9); Hematocrit 31.6 % (36.0-45.0); Lymphocytes % 12.2 % (15.3-44.8); MCV 96.1 fL (80-100); MPV 7.8 fL (7.6-11.3); RBC Red Blood Cell Count 3.28 M/uL (3.86-4.86)
[2021-10-05] MEDS ORDERED: NA CHLORIDE 0.9% 250 ML ONE (11:49)
[2021-10-05] MEDS ORDERED: VANCOMYCIN 1 GM/VIAL ONE (11:49)
[2021-10-05 11:58] LABS: Albumin 2.1 g/dL (3.4-5.0); Bilirubin Total 0.4 mg/dL (0.2-1.0); Potassium 4.2 mmol/L (3.5-5.1); Protein, Total 7.2 g/dL (6.4-8.2)
--- NOTE | 2021-10-05 12:04 | RAD REPORT ---
EXAM DESCRIPTION: CT - Knee Left Wo Con - 10/05/2021 11:50 am CLINICAL HISTORY: Left knee pain and swelling COMPARISON: None TECHNIQUE: Computed axial tomography left knee obtained All CT scans are performed using dose optimization technique as appropriate and may include automated exposure control or mA/KV adjustment according to patient size. FINDINGS: Intramedullary rosa, plate and screws affix a comminuted femoral fracture. A the fracture o ccurred March 2021. The fracture has not fused. Mild to moderate displacement of several fracture fragments. Ulceration involves the anterior soft tissues of the lower knee. 3.7 centimeter fluid collection with is present anterior to the proximal tibia. Moderate joint effusion contains air. IMPRESSION: Moderate knee joint effusion containing air probably a septic joint. 3.7 centimeter fluid collection anterior to the proximal tibia probably an abscess
--- NOTE | 2021-10-05 12:05 | RAD REPORT ---
EXAM DESCRIPTION: US - Extremity Nonvascular Complete - 10/05/2021 10:58 am CLINICAL HISTORY: Left knee pain and swelling COMPARISON: None FINDINGS: A moderate knee joint effusion. Diffuse edema within the anterior subcutaneous tissues. A 3 centimeter fluid collection soft tissues anterior lower knee IMPRESSION: Moderate joint effusion 3 centimeter fluid collection soft tissue anterior lower knee probably an abscess
--- NOTE | 2021-10-05 12:06 | RAD REPORT ---
EXAM DESCRIPTION: RAD - Femur Left - 10/05/2021 11:36 am CLINICAL HISTORY: Leg pain FINDINGS: Intramedullary rosa, plate and screws affix a mildly to moderately displaced comminuted fra cture distal left femur. Moderate knee joint effusion containing air probably a septic joint
--- NOTE | 2021-10-05 16:47 | EDPHYS ---
Physician Documentation [facility] Name: Mia Person Age: 66 yrs Sex: Female : 1955 Arrival Date: 10/05/2021 Time: 10:16 Bed 8 Private MD: ED Physician Osmar Fink HPI: 10/05 16:46 This 66 yrs old Female presents to ER via EMS with complaints of Knee Pain. kdr 16:46 The patient presents with an abscess, moderate-sized, decreased range of motion, pain, kdr that is chronic, swelling, tenderness. The complaints affect the lateral aspect of left thigh, lateral aspect of left calf and left knee. Context: The problem was sustained at an unknown site, resulted from Patient had a femur repair and surgery last April at [facility], the patient is not able to bear weight, the patient is not able to ambulate. Onset: The symptoms/episode began/occurred gradually, 6 month(s) ago. Modifying factors: The symptoms are alleviated by nothing. the symptoms are aggravated by movement, bending knee. Associated signs and symptoms: The patient has no apparent associated signs or symptoms. Severity of symptoms: At their worst the symptoms were mild, moderate, just prior to arrival, in the emergency department the symptoms are unchanged. The patient has experienced similar episodes in the past, chronically. The patient has not recently seen a physician, Patient denies follow-up since the surgery. Historical: - Allergies: 10:29 Clindamycin; aa5 10:29 Morphine; aa5 - PMHx: 10:29 Cancer, Breast; Diabetes - NIDDM; Depression; RLS; aa5 - PSHx: 10:29 section; Cholecystectomy; mastectomy-left; Left femur repair; aa5 - Immunization history:: Adult Immunizations unknown. - Social history:: Smoking status: Patient reports the use of cigarette tobacco products, smokes one pack cigarettes per day. ROS: 16:46 Constitutional: Negative for fever, chills, and weight loss, Eyes: Negative for injury, kdr pain, redness, and discharge, Neck: Negative for injury, pain, and swelling, Cardiovascular: Negative for chest pain, palpitations, and edema, Respiratory: Negative for shortness of breath, cough, wheezing, and pleuritic chest pain, Abdomen/GI: Negative for abdominal pain, nausea, vomiting, diarrhea, and constipation, Back: Negative for injury and pain, Skin: Negative for injury, rash, and discoloration, Neuro: Negative for headache, weakness, numbness, tingling, and seizure activity. Psych: Negative for depression, anxiety, suicide ideation, homicidal ideation, and hallucinations. 16:46 MS/extremity: Positive for decreased range of motion, erythema, pain, swelling, tenderness, of the lateral aspect of left thigh, lateral aspect of left calf and left knee. Exam: 16:46 Constitutional: This is a well developed, well nourished patient who is awake, alert, kdr and in no acute distress. Head/Face: Normocephalic, atraumatic. 16:46 Musculoskeletal/extremity: Extremities: grossly normal except: Vital Signs: 10:16 BP 112 / 43; Pulse 107; Resp 18 S; Temp 99.1(O); Pulse Ox 98% on R/A; Weight 104.33 kg aa5 (R); Height 5 ft. 3 in. (160.02 cm) (R); 11:00 BP 126 / 57; Pulse 100; Resp 20 S; Pulse Ox 98% on R/A; ss 12:00 BP 133 / 61; Pulse 99; Resp 18 S; Pulse Ox 98% on R/A; aa5 12:36 Temp 98.2(O); aa5 10:16 Body Mass Index 40.74 (104.33 kg, 160.02 cm) aa5 MDM: 16:46 Patient medically screened. kdr 16:55 Data reviewed: vital signs, nurses notes, lab test result(s), radiologic studies. kdr Counseling: I had a detailed discussion with the patient and/or guardian regarding: the historical points, exam findings, and any diagnostic results supporting the discharge/admit diagnosis, lab results, radiology results, the need to transfer to another facility. 10/05 10:23 Order name: CBC with Diff; Complete Time: 13:59 kdr 10/05 10:23 Order name: Comprehensive Metabolic Panel; Complete Time: 13:59 kdr 10/05 10:25 Order name: Wound Culture kdr 10/05 10:26 Order name: Femur Left XRAY; Complete Time: 13:59 kdr 10/05 10:30 Order name: Knee Left Wo Con; Complete Time: 13:59 EDMS 10/05 10:58 Order name: Extremity Nonvascular Complete; Complete Time: 13:59 EDMS Administered Medications: 11:00 Drug: Zofran (Ondansetron) 4 mg Route: IVP; Site: right upper arm; ss 11:15 Follow up: Response: No adverse reaction aa5 11:02 Drug: Demerol (meperidine) 25 mg Route: IVP; Site: right upper arm; ss 11:15 Follow up: Response: No adverse reaction aa5 11:08 Drug: Cefepime 1 grams Route: IVPB; Rate: 200 ml/hr; Infused Over: 30 mins; Site: right ss upper arm; 11:38 Follow up: Response: No adverse reaction; IV Status: Completed infusion aa5 12:10 Drug: vancoMYCIN 1 grams Route: IVPB; Infused Over: 2 hrs; Site: right upper arm; aa5 12:45 Follow up: Response: No adverse reaction aa5 12:33 Drug: Demerol (meperidine) 25 mg Route: IVP; Site: right upper arm; aa5 19:09 Drug: Demerol (meperidine) 25 mg Route: IVP; Site: right upper arm; aa5 Disposition Summary: 10/05/21 16:46 Transfer Ordered Transfer Location: [facility] kdr Reason: Higher level of care kdr Condition: Stable kdr Problem: new kdr Symptoms: have improved kdr Accepting Physician: Dr. Mcleod(10/05/21 19:10) aa5 Diagnosis - Effusion, left knee - Septic joint with cutaneous abscess kdr Forms: - Medication Reconciliation Form kdr - SBAR form kdr Signatures: Dispatcher [employer] EDMI Osmar Fink MD MD kdr Kaylah Powers, RN RN aa5 Ruby Apodaca RN RN ss Corrections: (The following items were deleted from the chart) 10:30 10:29 PSHx: broken femur repair; aa5 aa5 10:58 10:24 Extrmty Nonvasular Limited+US.RAD.BRZ ordered. EDMI EDMS 19:10 16:46 Dr. Mcleod kdr aa5
--- NOTE | 2021-10-05 16:47 | ER ---
Nurse's Notes [facility] Name: Mia Person Age: 66 yrs Sex: Female : 1955 Arrival Date: 10/05/2021 Time: 10:16 Bed 8 Private MD: Diagnosis: Effusion, left knee-Septic joint with cutaneous abscess Presentation: 10/05 10:16 Chief complaint: EMS states: pt had left femur surgery 1 year ago, pt reports left knee aa5 pain x 1 week ago, pt reports she had near fall 1 week ago but was able to assist herself to the ground. Pt reports martha leg weakness and becoming difficult to ambulate x 1 week ago. 10:16 Coronavirus screen: At this time, the client does not indicate any symptoms associated aa5 with coronavirus-19. Ebola Screen: Patient denies travel to an Ebola-affected area in the 21 days before illness onset. Initial Sepsis Screen: Does the patient meet any 2 criteria? HR > 90 bpm. Does the patient have a suspected source of infection? Yes: Other: Left knee drainage. Risk Assessment: Do you want to hurt yourself or someone else? Patient reports no desire to harm self or others. Onset of symptoms was September 2021. 10:16 Acuity: NICOLLE 3 aa5 10:16 Method Of Arrival: EMS: [facility] aa5 Historical: - Allergies: 10:29 Clindamycin; aa5 10:29 Morphine; aa5 - PMHx: 10:29 Cancer, Breast; Diabetes - NIDDM; Depression; RLS; aa5 - PSHx: 10:29 section; Cholecystectomy; mastectomy-left; Left femur repair; aa5 - Immunization history:: Adult Immunizations unknown. - Social history:: Smoking status: Patient reports the use of cigarette tobacco products, smokes one pack cigarettes per day. Screenin:00 Abuse screen: Denies threats or abuse. Nutritional screening: No deficits noted. aa5 Tuberculosis screening: No symptoms or risk factors identified. Fall Risk Fall in past 12 months (25 points). IV access (20 points). Total Almaraz Fall Scale indicates High Risk Score (45 or more points). Fall prevention measures have been instituted. Side Rails Up X 2 Placed Close to Nursing Station. Assessment: 10:16 General: Appears uncomfortable, Behavior is calm, cooperative. Pain: Complains of pain aa5 in left knee Pain currently is 10 out of 10 on a pain scale. Quality of pain is described as sharp, shooting, Pain began 1 week ago Is continuous. Neuro: Level of Consciousness is awake, alert, obeys commands, Oriented to person, place, time, situation. Cardiovascular: Patient's skin is warm and dry. Respiratory: Airway is patent Respiratory effort is even, unlabored, Respiratory pattern is regular, symmetrical. GI: Abdomen is round non-distended, Patient currently denies nausea, vomiting. : No signs and/or symptoms were reported regarding the genitourinary system. EENT: No signs and/or symptoms were reported regarding the EENT system. Derm: Skin is pink, warm \\T\\ dry. 2 small openings noted to left knee with purulent drainage noted, pt states "they are the incisions from my surgery 1 year ago and they've been draining ever since". Mild redness noted to left knee that is hot to touch. Musculoskeletal: Reports pain in left knee. Vital Signs: 10:16 BP 112 / 43; Pulse 107; Resp 18 S; Temp 99.1(O); Pulse Ox 98% on R/A; Weight 104.33 kg aa5 (R); Height 5 ft. 3 in. (160.02 cm) (R); 11:00 BP 126 / 57; Pulse 100; Resp 20 S; Pulse Ox 98% on R/A; ss 12:00 BP 133 / 61; Pulse 99; Resp 18 S; Pulse Ox 98% on R/A; aa5 12:36 Temp 98.2(O); aa5 10:16 Body Mass Index 40.74 (104.33 kg, 160.02 cm) aa5 ED Course: 10:16 Patient arrived in ED. em1 10:16 Osmar Fink MD is Attending Physician. kdr 10:16 Arm band placed on. aa5 10:16 Patient has correct armband on for positive identification. Placed in gown. Bed in low aa5 position. Call light in reach. Side rails up X2. Pulse ox on. NIBP on. 10:25 Kaylah Pwoers, IONA is Primary Nurse. aa5 10:29 Triage completed. aa5 10:54 Initial lab(s) drawn, by me, sent to lab. Inserted saline lock: 20 gauge in right upper ss arm, using aseptic technique. Blood collected. 10:58 Extremity Nonvascular Complete In Process Unspecified. EDMS 11:38 Femur Left XRAY In Process Unspecified. EDMS 11:52 Knee Left Wo Con In Process Unspecified. EDMS Administered Medications: 11:00 Drug: Zofran (Ondansetron) 4 mg Route: IVP; Site: right upper arm; ss 11:15 Follow up: Response: No adverse reaction aa5 11:02 Drug: Demerol (meperidine) 25 mg Route: IVP; Site: right upper arm; ss 11:15 Follow up: Response: No adverse reaction aa5 11:08 Drug: Cefepime 1 grams Route: IVPB; Rate: 200 ml/hr; Infused Over: 30 mins; Site: right ss upper arm; 11:38 Follow up: Response: No adverse reaction; IV Status: Completed infusion aa5 12:10 Drug: vancoMYCIN 1 grams Route: IVPB; Infused Over: 2 hrs; Site: right upper arm; aa5 12:45 Follow up: Response: No adverse reaction aa5 12:33 Drug: Demerol (meperidine) 25 mg Route: IVP; Site: right upper arm; aa5 19:09 Drug: Demerol (meperidine) 25 mg Route: IVP; Site: right upper arm; aa5 Outcome: 16:46 ER care complete, transfer ordered by . kdr 19:10 Patient left the ED. aa5 Signatures: Dispatcher [employer] EDMS Osmar Fink MD MD kdr Jack Tamayo em1 Kaylah Powers RN RN aa5 Ruby Apodaca RN RN ss Corrections: (The following items were deleted from the chart) 10:30 10:29 PSHx: broken femur repair; aa5 aa5 10:58 10:53 In radiology for Extrmty Nonvasular Limited+US.RAD.BRZ. EDMS EDMS
[2021-10-05 20:12] VITALS: O2SAT 98
[2021-10-05 20:15] VITALS: BP 133/61
[2021-10-05 20:16] VITALS: TEMP 98.2
== END 2021-10-05 19:10 | disposition short-term general hospital (02) ==
LOC: ER 10:12
DX: M00.9 Pyogenic arthritis, unspecified (principal); M25.462 Effusion, left knee; L02.416 Cutaneous abscess of left lower limb; F17.210 Nicotine dependence, cigarettes, uncomplicated; E11.9 Type 2 diabetes mellitus without complications; Z85.3 Personal history of malignant neoplasm of breast; Z88.3 Allergy status to other anti-infective agents; Z88.5 Allergy status to narcotic agent
CPT/HCPCS: 87070; 85025; 36415; 87205; 80053; 73700; 73552; 76881; J3370; J2175 ×3; J7050; J2405; J0692